=== PATIENT | female | born 1975 | race Caucasian/White ===

== ENCOUNTER → 2019-02-19 16:34 | Outpatient (CLI) | payer BC, SELFPAY ==
--- NOTE | 2019-02-19 16:39 | US_ITS ---
STUDY: ULTRASOUND OF THE FEMALE PELVIS - COMPLETE REASON FOR EXAM: Female, 44 years old. Fibroids. LMP: February 12, 2019. TECHNIQUE: Transvaginal TECHNICAL QUALITY: Adequate. COMPARISON: None. FINDINGS: The uterus is anteverted and is in a midline position. The uterus measures 7.8 x 5.3 x 4 cm. There is a Nabothian cyst of the cervix. The endometrium measures 7 mm in thickness, and is hyperechoic. There is no demonstrated endometrial mass. There are multiple fibroids. In the fundus there is a 1.9 x 1.9 x 1.6 cm hypoechoic nodule which is thought to have internal calcification secondary to shadowing. In the anterior uterine wall there is a subserosal 0.8 x 0.9 x 0.3 cm hypoechoic fibroid. Posteriorly there is a 1.2 x 1.3 x 0.8 cm fibroid which may be submucosal. There is also a 0.7 x 0.9 x 0.4 cm hypoechoic nodule in the lower anterior uterine segment. I.U.D. - The patient does not have an I.U.D. The right ovary is visualized. The right ovary measures 3.1 x 2.5 x 2.1 cm. There is a 1.9 x 1.8 x 1.3 cm cyst versus dominant follicle. There is no visualized right adnexal mass or complex lesion. There is normal arterial and normal venous vascularity. The left ovary is visualized. The left ovary measures 2.5 x 1.7 x 1.9 cm. There is no left ovarian cyst or ovarian mass. There is no visualized left adnexal mass or complex lesion. There is normal arterial and normal venous vascularity. There is no fluid in the cul-de-sac. The urinary bladder is not visualized. Polycystic ovary disease: No. US/Transvaginal Non- IMPRESSION: 1. Multiple uterine fibroids without endometrial abnormality. 2. Dominant follicle versus small cyst in the right ovary. The ovaries are otherwise unremarkable. Electronically Signed: Don Levine DO at 8:21 EDT Tel [phone], Service support ,
== END ==
PROVIDERS: Family Provider Nurse Practitioner Family; PCP Nurse Practitioner Family; Referring Provider Nurse Practitioner Family; Visit Provider Nurse Practitioner Family
DX: D21.9 Benign neoplasm of connective and other soft tissue, unspecified (principal); N92.0 Excessive and frequent menstruation with regular cycle
CPT/HCPCS: 76830; 93976

== ENCOUNTER → 2019-03-14 | Outpatient (CLI) | payer BC, SELFPAY ==
--- NOTE | 2019-03-14 | EMB_PTH ---
PATIENT: DARLENE CARRION [facility] U[id number] AGE/SX: 44/F ROOM: RE03/14/[address]: Dr. Mariah Petersen MD : 1975 BED: DIS: 03/14/2019 SPEC #: [id number] RECD: 03/14/19 15:56 STATUS: ISABEL REBranden #: [id number] ЕЛЕНА: 03/14/19 00:[address]: Mariah Petersen DEPT: SURGICAL PATHOLOGY RECD BY: Doyle Breen ENTERED: 03/15/19 14:22 SP TYPE: ENDOM BX/C MOY DR: KAITY Moody Tissues: Endometrium, NOS Procedures: Surgery Specimen Level IV HEADER OPERATION: Endometrial biopsy PRE-OP DIAGNOSIS: Abnormal uterine bleeding TISSUE SUBMITTED: Endometrial biopsy MICROSCOPIC DIAGNOSIS Endometrial biopsy: Mildly disordered proliferative endometrium. SJ:indu 03/16/19 MICROSCOPIC DESCRIPTION Slides are reviewed. GROSS DESCRIPTION Received is one container labeled with the patient's name and not further designated. The specimen consists of multiple irregular fragments of danielle-pink soft tissue that in aggregate measure 1.5 x 1.5 x 0.2 cm. The specimen is totally submitted in one cassette. / SJ:indu 03/15/19 TC:5 CPT: 37624
[2019-03-14 12:25] VITALS: BMI 22.3
[2019-03-19 14:47] LABS: HPV APTIMA, High Risk Negative (Negative)
== END | disposition home or self-care (01) ==
LOC: LABSPEC 16:22
PROVIDERS: Family Provider Nurse Practitioner Family; PCP Nurse Practitioner Family; Referring Provider Obstetrics & Gynecology; Visit Provider Obstetrics & Gynecology
DX: N89.8 Other specified noninflammatory disorders of vagina (principal); N93.9 Abnormal uterine and vaginal bleeding, unspecified; Z12.4 Encounter for screening for malignant neoplasm of cervix
CPT/HCPCS: 87070; 87205; 87624; 88175; 88305; G0145

== ENCOUNTER → 2019-04-18 | Outpatient (CLI) | payer BC, SELFPAY ==
[2019-03-14 12:25] VITALS: BMI 22.3
--- NOTE | 2019-04-18 11:05 | BI_ITS ---
MAMMOGRAPHY - BILATERAL SCREENING REASON FOR EXAM: Female, 44 years old. Routine annual screening examination. PERTINENT HISTORY: Non-contributory. TECHNIQUE: Digital bilateral breast jarrett (3D mammographic acquisition) in the CC and MLO projections. 2-D mediolateral oblique (MLO) and craniocaudad (CC) views of both breasts were obtained. CAD: Full Field Digital Mammography with Computer Added Detection was performed. COMPARISON: Comparison is made with prior outside study dated September 19, 2017 and January 29, 2015. FINDINGS: Breast Composition: The breasts are heterogeneously dense, which may obscure small masses. There are no dominant masses or suspicious calcifications. No other significant abnormalities are identified. There has been no significant change since the prior study. BI/SCREENING MAMM (CAD), BILAT IMPRESSION: Stable bilateral screening mammogram. Yearly follow-up mammogram recommended. (A) ASSESSMENT CATEGORY: BIRADS Category 1: Negative. A letter regarding these results will be sent to the patient by the facility within 30 days. Approximately 10% of breast cancers are not detected by mammography. A normal mammogram should not delay biopsy of a clinically suspicious abnormality. [id number] Electronically Signed: Randolph Villalobos, at 9:00 EDT , Service support ,
== END | disposition home or self-care (01) ==
LOC: OPBI 11:03
PROVIDERS: Family Provider Nurse Practitioner Family; PCP Nurse Practitioner Family; Referring Provider Obstetrics & Gynecology; Visit Provider Obstetrics & Gynecology
DX: Z12.31 Encounter for screening mammogram for malignant neoplasm of breast (principal)
CPT/HCPCS: 77063; 77067

== ENCOUNTER 2019-06-21 05:24 | Day surgery (SDC) | payer BC, SELFPAY ==
[2019-03-14 12:25] VITALS: BMI 22.3
[2019-06-07 17:07] VITALS: BMI 22.3
--- NOTE | 2019-06-08 04:13 | HP.PCM_ITS ---
- Problem List (1) Stress incontinence Status: Acute Comment: urogyn consult with miko for combo case (2) Uterine fibroid Status: Acute Qualifiers: Comment: plan LAVH BS, possible TVH BS. History and Physical Date of Admission: 06/21/19 Intake Vital Signs 06/07/19 Body Mass Index (BMI) 22.3 06/07/19 Height 5 ft 1 in 06/07/19 Weight: 110 lb 6 oz 06/07/19 Body Mass Index (BMI) 20.8 06/07/19 Blood Pressure 100/80 Intake Visit Reasons: pre op LAVH BS ERAS Milk Pasteurizer Required: No Is patient in pain?: No Allergies codeine Allergy (Mild, Verified 06/07/19 16:36) Other Sulfa (Sulfonamide Antibiotics) Allergy (Mild, Verified 06/07/19 16:36) Other Medications omeprazole 40 mg capsule,delayed release 40 mg PO DAILY 03/14/19 [History Confirmed 06/07/19] Post menopausal: No Patient : No : No PFSH Surgical History H/O tubal ligation (Acute) Family History Grandmother Cancer Grandfather Cancer prostate Anxiety Depression Social History (Updated 06/08/19 @ 03:16 by Mariah Petersen MD) Smokeless tobacco user: other alcohol intake: never substance use type: does not use caffeine: Yes what type of physical activity do you participate in: none seatbelt use: always do you feel safe at home: Yes additional social history: - [place] [employer] HPI pre op LAVH BS ERAS: Details: DARLENE AVITIA is a 44 year old who presents for preoperative visit for hysterectomy. she has uterine fibroids and irregular bleeding and pelvic discomfort from this. she has DI and has been evaluated by Dr Zendejas and pelvic floor physical therapy was recommended. Female Reproductive History Questions: Metorrhagia: Yes, Sexually active: Yes Pregancy History 3 Elective abortions Hx Para 3 Spontaneous abortions Hx # Term Pregnancies Ectopic pregnancies Hx # Pregnancies Multiple births # of living children Past Pregnancies Del. Date Name GA/Weeks Outcome Route Bth Weight Gen Labor Lgth Anesthesia Del Locatn Provider FOB Unknown 1989 [place] live - full term NSV D Unknown 1991 [place] live - full term NS VD Unknown 1996 [place] live - full term ROS Const Constitutional: Denies fatigue, fever(s), headache(s), increased appetite, poor appetite, weight gain or weight loss Cardio Card: Denies chest pain Resp Resp: Denies cough or dyspnea GI GI: Reports as per HPI; denies abdominal pain, constipation, nausea or vomiting : Denies nipple discharge Skin Skin/Breast: Denies change in hair, breast lump, breast pain, breast skin changes or nipple discharge Exam Const General: cooperative, healthy appearing, comfortable, no acute distress, well developed Nutritional Appearance: average body habitus Orientation: alert HENMT Head: normal to inspection, normocephalic Neck Neck: normal visual inspection, trachea midline Thyroid: thyroid normal Resp Effort & Inspection: normal respiratory effort Auscultation: clear to auscultation bilaterally Cardio Rate: regular rate Rhythm: regular rhythm GI Inspection: normal to inspection, non-distended Palpation: soft, no hepatosplenomegaly General: bladder normal to palpation External Female Exam: normal external appearance, normal appearance of the urethra Urethra: normal appearance of the urethra, normal palpation, no discharge Speculum Exam - Vagina: normal appearance of the vagina, normal vaginal discharge Speculum Exam - Cervix: normal appearance of the cervix, nontender Bimanual Exam- Vagina & Uterus: normal bimanual exam, bladder normal to palpation, uterine shape abnormal, No cervical tenderness, uterine mobility normal, uterine consistency normal, normal cervical palpation, uterus non- tender, uterus enlarged, uterus nodular Bimanual Exam- Adnexa, other: normal adnexae, adnexae mobile, no adnexal masses, pelvic support normal Pelvic Support: normal Skin General: no rashes or lesions noted Assessment & Plan Problems 1. Intramural, submucous, and subserous leiomyoma of uterus D25.1 plan LAVH BS, possible TVH BS. Plan discussed surgical risks including risks of anesthesia, infection, bleeding, injury to bowel, bladder or blood vessels, and patient wishes to proceed with surgery. Coding Level of Care Code No Charge Diagnoses Intramural, submucous, and subserous leiomyoma of uterus D25.1 ??Uterine leiomyoma location: intramural, submucous, and subserous UPDATE- I have seen the patient and performed any clinically relevant updates to the history and physical exam. Mariah Petersen MD
[2019-06-21] VITALS (10 sets, daily range): BP systolic 85–115; BP diastolic 35–75; PULSE 54–85; RESP 14–18; TEMP 36.2–37; O2SAT 98–100; BMI 21.2
--- NOTE | 2019-06-21 | HYST_PTH ---
PATIENT: DARLENE CARRION LOC: [facility] U#:[id number] AGE/SX: 44/F ROOM: RE06/21/[address]: Dr. Mariah Petersen MD : 1975 BED: DIS: 06/21/2019 SPEC #: [id number] RECD: 06/21/19 12:35 STATUS: ISABEL REBranden #: [id number] ЕЛЕАН: 06/21/19 00:[address]: Mariah Petersen DEPT: SURGICAL PATHOLOGY RECD BY: Doyle Breen ENTERED: 06/21/19 12:35 SP TYPE: HYSTERECT OTHR DR: Shereen Gonzalez, KAITY Tissues: Uterus, NOS Procedures: Surgery Specimen Level V HEADER OPERATION: ERAS, lap-assisted vaginal hysterectomy, salpingectomy PRE-OP DIAGNOSIS: Intramural, submucous and subserosal leiomyoma of uterus TISSUE SUBMITTED: Uterus and bilateral fallopian tubes MICROSCOPIC DIAGNOSIS Uterus and bilateral fallopian tubes, vaginal hysterectomy and bilateral salpingectomy: Cervix - mild chronic inflammation and squamous metaplasia. Endometrium - mildly disordered proliferative endometrium. Myometrium - intramural leiomyomas (largest measuring 2 cm in greatest dimension). - Focal adenomyosis. Right fallopian tube - no pathologic diagnosis. Left fallopian tube - focal hematosalpinx. SJ:rg 06/22/19 COMMENT Please make reference to previous specimen ([id number]) endometrial biopsy with diagnosis of mildly disordered proliferative endometrium. MICROSCOPIC DESCRIPTION Slides are reviewed. GROSS DESCRIPTION Received in fixative is one container labeled with the patient's name and designated uterus, bilateral fallopian tubes. The specimen consists of a hysterectomy specimen consisting of uterus with cervix and attached bilateral fallopian tubes. The uterus with cervix weighs 120 gm and measures 9 x 7 x 5 cm. The serosal surface is danielle, glistening. The ectocervical mucosa is focally congested. The external os is oval and patulous in contour. The endocervical canal measures 3.5 cm in length and the endocervical mucosa is danielle, glistening and unremarkable. The triangular endometrial cavity measures 4 cm in length and up to 3 cm in width. The endometrium is danielle, glistening without any mass lesion and measures up to 0.2 cm in thickness. Sections of the uterine wall reveal three nodular masses, the largest measuring 2 cm in greatest dimension. Sections of these masses reveal danielle whorled cut surfaces without areas of hemorrhage, necrosis or cystic degeneration. The uninvolved uterine wall measures up to 2 cm in thickness. The right fallopian tube measures up to 5.5 cm in length and 0.8 cm in diameter. The fimbrial end is identified. The fallopian tube is interrupted predominantly in the proximal portion of the fallopian tube consistent with previous tubal ligation. The left fallopian tube measures 6 cm in length and 0.6 to 1 cm in diameter. It is interrupted in the middle consistent with previous tubal ligation. The lumen of the proximal portion of the fallopian tube is dilated and filled with bloody fluid. Deaf Teacher sections are submitted in nine cassettes as follows: 1 - anterior cervix, 2 - posterior cervix, 3 & 4 - anterior uterine wall, 5 & 6 - posterior uterine wall, 7 - nodular masses, 8 - right fallopian tube, 9 - left fallopian tube. / JOCELYNN:indu 06/21/19 TC:1 CPT: 62625
[2019-06-21 06:00] LABS: Internal QC Validated? YES +Cl - CLEAR BKGD; Pregnancy, Urine Negative Negative
[2019-06-21] MEDS: Celecoxib 200 MG Capsule 400 MG PO (06:12)
[2019-06-21] MEDS: Phenazopyridine 95 MG Tablet 190 MG PO (06:13)
[2019-06-21] MEDS: dexAMETHasone 10 MG/ML Vial 8 MG IV (06:13)
[2019-06-21] MEDS: Acetaminophen 500 MG Tablet 1000 MG PO ×2 (06:13→13:35)
[2019-06-21] MEDS: Scopolamine 1mg/72hr Patch 1 PATCH TRANSDERM. (06:14)
[2019-06-21] MEDS: Enoxaparin 40 MG/0.4 ML Syringe SC (06:14)
[2019-06-21] MEDS: Lactated Ringers 1,000 ML 40 ML IV (06:15)
[2019-06-21] MEDS: Magnesium Sulfate 4gm/100mL 4 GM/100 ML IV.SOLN. IV (06:28)
[2019-06-21] MEDS: Gabapentin 600 MG Tablet PO (06:28)
[2019-06-21 06:44] LABS: International Normalized Ratio 1.1; Prothrombin Time (Protime)PT. 14.2 SECONDS (11.7-14.9)
[2019-06-21 06:45] LABS: Partial Thromboplast Time 31.2 Seconds (24.1-36.2)
[2019-06-21 06:47] LABS: Hematocrit 41.2 % (37-47); Hemoglobin 12.8 g/dL (12.0-15.0); Mean Corp Hgb Conc 31.1 g/dL (32-36); Mean Corpuscular Hgb 24.2 pg (27.0-32.0); Mean Platelet Vol. 10.4 fl (6.2-12.0); Platelet Count 228 K/mm3 (150-450); RBC Distribution Width CV 16.8 % (11.6-14.6); RBC Distribution Width SD 46.7 fl (35.1-43.9); Red Blood Count 5.28 M/mm3 (4.2-5.4); White Blood Count 4.6 K/mm3 (4.4-11.0)
[2019-06-21] MEDS: Vasopressin 20 UNITS/ML Vial (07:09)
[2019-06-21] MEDS: Cefazolin 2 GM in 0.9% Normal Saline 100 ML IV (07:43)
--- NOTE | 2019-06-21 07:49 | PCM.OPRPT ---
Problem List (1) Stress incontinence Status: Acute Comment: urogyn consult with miko- [facility] pelvic floor physical therapy (2) Uterine fibroid Status: Acute Qualifiers: Comment: plan LAVH BS, possible TVH BS. (3) Endometriosis Status: Acute Comment: seen at hysterectomy stage III, all scar tissue removed Report of Operation Date of Procedure: 06/21/19 Pre-Operative Diagnosis: enlarged fibroid uterus Post-Operative Diagnosis: same plus stage III endometriosis Surgery/Procedure Performed:: lavh bs cysto Description of Surgical Findings:: normal bladder lining, stage III endometriosis senior regulatory affairs specialist: Jessy Victoria Type of Anesthesia:: General Special Medications: christine Specimen's removed: uterus tubes Drains: ragland Estimated Blood Loss (mL): 50 Fluids Replaced: crystalloid Description of Procedure: Patient received preoperative antibiotics and SCDs were on preoperatively. Patient was taken back to the operating room and placed in the dorsal lithotomy position. General anesthesia was induced and patient was prepped and draped in normal sterile fashion. Uterine manipulator was placed inside the uterus and Ragland catheter placed in the bladder. The umbilicus was grasped with towel clamps and an intraumbilical incision was made after injecting with quarter percent Marcaine and a Veress needle entered into the abdomen confirmed to be intra-abdominal with a low opening pressure. Abdomen was insufflated with CO2 gas and the Veress needle removed and the 5 mm trocar was placed under direct visualization without complication. Right and left lower quadrants were transilluminated and injected with quarter percent Marcaine and 5 mm ports placed under direct visualization. Pelvis was well visualized see operative findings for additional information. Significant scar tissue was noted from the sigmoid colon to the left pelvic sidewall to the ovarian and fallopian tube area. Extensive bladder to anterior abdominal wall adhesions were noted as well as left ovarian to sigmoid colon and ovarian fossa adhesions. Overall she had a stage III endometriosis. No endometriomas were seen bilaterally. All scar tissue was taken down both bluntly and with the LigaSure device without complication. Bilateral fallopian tubes were identified and transected with the LigaSure device across the mesosalpinx to the level of the utero-ovarian ligament which was also transected with the LigaSure device. The broad ligament was opened up by transecting the round ligament bilaterally and skeletonizing the uterine vessels bilaterally and creating a bladder flap using the LigaSure device. The uterine arteries were transected bilaterally with good visualization of the bladder and the ureters were seen to be inferior lateral to the operative area. Attention was then paid to the vaginal portion of the procedure and the cervix was grasped with Yazmin clamps and circumferentially injected with dilute vasopressin. A circumferential incision was made and the vaginal mucosa was mobilized off posteriorly and the cul-de-sac entered into sharply and a longneck speculum placed. The anterior cul-de-sac was then identified and entered into sharply. The uterosacral ligaments were clamped cut and suture ligated with 0 Monocryl bilaterally followed by the cardinal ligaments which were clamped cut and suture ligated bilaterally with 0 Monocryl. The uterus serially descended and was removed without difficulty with minimal morcellation. Pelvic sidewall pedicles were checked and noted to have excellent hemostasis. The vaginal mucosa was reapproximated incorporating the posterior peritoneum. This was reapproximated using 0 Vicryl [id number] sutures. Excellent hemostasis was noted. The cystoscopy was then performed and bilateral ureteral strong spray was noted and the bladder was noted to have no abnormality or lesions seen. Ragland catheter was replaced and then attention paid to the abdominal portion of the procedure again. The pelvis and cul-de-sac was well visualized and no significant active bleeding noted but some raw areas were seen on the peritoneum and therefore Christine was applied. Pressure was taken down and the areas visualized and noted of excellent hemostasis. All ports were removed under direct visualization without complication and the abdomen was desufflated of air. The instruments removed from the abdomen and the vagina vaginal sweep was negative. Port sites on the abdomen were closed with 4-0 Monocryl interrupted sutures and Steri's and windows were applied. She was awoken and taken recovery in stable condition. Grafts/Implants Used: none - Complications none Multi Select Codes - Urinary/Genital Urinary/Genital CPT Codes: 27130 Laparo-vag hyst incl t/o
--- NOTE | 2019-06-21 07:53 | DCINST_ITS ---
Discharge Diet: No Restrictions Discharge Activity: Return to Normal Activity, May Not Drive, May Shower May resume sexual activity in: 6-8 weeks Call your doctor if your incision/area has: Continuous Slow Oozing, Sudden Increased Bleeding, Increased Pain/ Swelling, Increased Redness, Foul Smelling Discharge Call your doctor if you observe: Fever of 101 or Higher, Inability to urinate, Inability to have a bowel movement, Using more than one pad per hour Allergies/Adverse Reactions: Allergies codeine Allergy (Mild, Verified 06/14/19 10:18) Other Sulfa (Sulfonamide Antibiotics) Allergy (Mild, Verified 06/14/19 10:18) Other Medications to take at Discharge omeprazole 40 mg capsule,delayed release 40 mg PO DAILY PRN 03/14/19 Naproxen [Naprosyn] 250 - 500 mg PO Q8H PRN PRN #30 tab 06/21/19 Oxycodone HCl/Acetaminophen [Percocet 5-325] 1 - 2 tablet PO Q4H PRN PRN 7 Days #15 tablet 06/21/19 The following prescriptions were given: Naproxen [Naprosyn] 250 - 500 mg PO Q8H PRN PRN #30 tab PRN Reason: MILD PAIN Transmission Status: Pending to [facility] Oxycodone HCl/Acetaminophen [Percocet 5-325] 1 - 2 tablet PO Q4H PRN PRN 7 Days #15 tablet PRN Reason: Pain Transmission Status: Sent to [facility] Primary Care Physician: Shereen Gonzalez NP-C [Primary Care Provider] - Test Results: Test results from this visit will be discussed in further detail at your follow- up appointment, if applicable. Please Follow Up With: Mariah Petersen MD - [phone]
[2019-06-21] MEDS: Bupivacaine 0.25% 30 ML Vial (09:30)
[2019-06-21] MEDS: Ketorolac 30 MG/ML Syringe IV (11:22)
[2019-06-21 13:15] LABS: Hematocrit 38.3 % (37-47); Hemoglobin 12.1 g/dL (12.0-15.0); Mean Corp Hgb Conc 31.6 g/dL (32-36); Mean Corpuscular Hgb 24.6 pg (27.0-32.0); Mean Platelet Vol. 10.9 fl (6.2-12.0); Platelet Count 193 K/mm3 (150-450); RBC Distribution Width CV 16.4 % (11.6-14.6); RBC Distribution Width SD 46.2 fl (35.1-43.9); Red Blood Count 4.91 M/mm3 (4.2-5.4); White Blood Count 9.1 K/mm3 (4.4-11.0)
[2019-06-21] MEDS: oxyCODONE 5 MG Tablet PO (13:36)
[2019-06-21 15:50] LABS: Bedside Glucose 69 mg/dL (70-110)
[2019-06-21 15:50] LABS: Bedside Glucose 63 mg/dL (70-110)
== END 2019-06-21 14:49 | disposition home or self-care (01) ==
LOC: SDC 05:25 → AC 05:26
PROVIDERS: Anesthesiology; Family Provider Nurse Practitioner Family; PCP Nurse Practitioner Family; Referring Provider Obstetrics & Gynecology; Visit Provider Obstetrics & Gynecology
PROC: (CPT 58260; principal; 2019-06-21 07:10)
DX: D25.1 Intramural leiomyoma of uterus (principal); N80.0 Endometriosis of uterus; N87.0 Mild cervical dysplasia; N72 Inflammatory disease of cervix uteri; N80.9 Endometriosis, unspecified; D64.9 Anemia, unspecified; F17.200 Nicotine dependence, unspecified, uncomplicated; K21.9 Gastro-esophageal reflux disease without esophagitis; Z79.899 Other long term (current) drug therapy
CPT/HCPCS: 00840; 52000; 58552; 36415; 81025; 82962; 85027; 85610; 85730; 86850; 86900; 88307; J7120; J2405

== ENCOUNTER → 2020-04-25 10:19 | Outpatient (CLI) | payer BC, SELFPAY ==
[2019-08-06 15:43] VITALS: BMI 21.2
--- NOTE | 2020-04-25 10:20 | BI_ITS ---
MAMMOGRAPHY - BILATERAL SCREENING REASON FOR EXAM: Female, 45 years old. Routine annual screening examination. PERTINENT HISTORY: Non-contributory. TECHNIQUE: Digital bilateral breast christopher (3D mammographic acquisition) in the CC and MLO projections. 2-D mediolateral oblique (MLO) and craniocaudad (CC) views of both breasts were obtained. CAD: Full Field Digital Mammography with Computer Added Detection was performed. COMPARISON: Comparison is made with prior examination April 18, 2019. FINDINGS: Breast Composition: The breasts are heterogeneously dense, which may obscure small masses. There are no dominant masses or suspicious calcifications. No other significant abnormalities are identified. There has been no significant change since the prior study. BI/SCREEN MAMM (CAD) W/CHRISTOPHER BILAT IMPRESSION: Stable bilateral screening mammogram. Yearly follow-up mammogram recommended. (A) ASSESSMENT CATEGORY: BIRADS Category 1: Negative. A letter regarding these results will be sent to the patient by the facility within 30 days. Approximately 10% of breast cancers are not detected by mammography. A normal mammogram should not delay biopsy of a clinically suspicious abnormality. [id number] Electronically Signed: Randolph Villalobos, at 12:20 EDT , Service support ,
== END ==
PROVIDERS: PCP Nurse Practitioner Family; Referring Provider Obstetrics & Gynecology; Visit Provider Obstetrics & Gynecology
DX: Z12.31 Encounter for screening mammogram for malignant neoplasm of breast (principal)
CPT/HCPCS: 77063; 77067

== ENCOUNTER → 2020-08-02 08:26 | Outpatient (CLI) | payer BC, SELFPAY ==
[2020-08-01 09:57] VITALS: BMI 21.2
[2020-08-02 09:15] LABS: Absolute Lymphocyte Count 1.26 X10^3/uL (0.83-4.51); Absolute Neutrophil Count 3.7 X10^3/uL (2.0-7.7); Basophil# 0.04 X10^3/uL; Basophil% 0.7 % (0-1); Eosinophil# 0.17 X10^3/uL; Eosinophils% 3.1 % (0-5); Hematocrit 47.3 % (37-47); Hemoglobin 15.4 g/dL (12.0-15.0); Lymphocyte # 1.26 X10^3/ul (4.0); Lymphocyte % 22.6 % (19-41); Mean Corp Hgb Conc 32.6 g/dL (32-36); Mean Corpuscular Hgb 29.8 pg (27.0-32.0); Mean Corpuscular Volume 91.5 fL (81-99); Mean Platelet Vol. 10.2 fl (6.2-12.0); Monocyte# 0.43 X10^3/uL; Monocyte% 7.7 % (0-10); NRBC Flagged by Analyzer 0 % (0-5); Neutrophil # 3.66 X10^3/uL (2.7-7.7); Neutrophil % 65.7 % (47-70); Platelet Count 193 K/mm3 (150-450); RBC Distribution Width CV 12.7 % (11.6-14.6); RBC Distribution Width SD 42.8 fl (35.1-43.9); Red Blood Count 5.17 M/mm3 (4.2-5.4); White Blood Count 5.6 K/mm3 (4.4-11.0)
[2020-08-02 09:46] LABS: Vitamin D,25 Hydroxy 41.3 ng/mL
[2020-08-02 09:55] LABS: ALB/GLOB Ratio 1.1 RATIO (0.9-2.4); AST(SGOT) 9 U/L (15-37); Alanine Aminotransfer ALT/SGPT 18 U/L (13-56); Albumin, Serum 4.2 g/dL (3.2-5.0); Alkaline Phosphatase 66 U/L (45-117); Anion Gap 3 (5-15); BUN 23 mg/dL (7-18); BUN/Creat Ratio 26.3 RATIO (10-20); Calcium,Total 9.3 mg/dL (8.5-10.1); Chloride 109 mmol/L (98-107); Cholesterol 217 mg/dL (200); Creatinine, Serum 0.87 mg/dL (0.55-1.02); EST Glomerular Filtration Rate 74 mL/min (>60); Est Glom Filt Rate - Afr Amer 90 mL/min (>60); Globulin 3.7 g/dL (2.2-4.2); Glucose 87 mg/dL (74-106); High Density Lipoprotein 56 mg/dL; Protein, Total 7.9 g/dL (6.4-8.2); Sodium Level 140 mmol/L (136-145); Thyroid Stim Hormone (TSH) 1.83 uIU/mL (0.358-3.74); Triglycerides 87 mg/dL; Very Low Density Lipoprotein 17 mg/dL (5-40)
[2020-08-06 20:07] LABS: HSV 1 By PCR Negative (Negative)
[2020-08-06 20:37] LABS: HSV 1 IgG < 0.91 index (0.00-0.90); HSV 2 By PCR Negative (Negative)
== END ==
PROVIDERS: PCP Nurse Practitioner Family; Referring Provider Obstetrics & Gynecology; Visit Provider Obstetrics & Gynecology
DX: Z01.419 Encounter for gynecological examination (general) (routine) without abnormal findings (principal); Z13.29 Encounter for screening for other suspected endocrine disorder; Z13.21 Encounter for screening for nutritional disorder; Z13.220 Encounter for screening for lipoid disorders; Z11.3 Encounter for screening for infections with a predominantly sexual mode of transmission
CPT/HCPCS: 36415; 80053; 80061; 82306; 84443; 85025; 86695; 86696; 87529

== ENCOUNTER → 2021-05-25 10:34 | Outpatient (CLI) | payer BC, SELFPAY ==
[2020-08-01 09:57] VITALS: BMI 21.2
--- NOTE | 2021-05-25 10:37 | BI_ITS ---
MAMMOGRAPHY - BILATERAL SCREENING REASON FOR EXAM: Female, 46 years old. Routine annual screening examination. PERTINENT HISTORY: Non-contributory. TECHNIQUE: Digital bilateral breast christopher (3D mammographic acquisition) in the CC and MLO projections. 2-D mediolateral oblique (MLO) and craniocaudad (CC) views of both breasts were obtained. CAD: Full Field Digital Mammography with Computer Added Detection was performed. COMPARISON: Comparison is made with prior study dated 04/25/2020 and 04/18/2019. FINDINGS: Breast Composition: The breasts are heterogeneously dense, which may obscure small masses. There are no dominant masses or suspicious calcifications. No other significant abnormalities are identified. There has been no significant change since the prior study. BI/SCRN MAMM (CAD)W/CHRISTOPHER BILAT IMPRESSION: Stable bilateral screening mammogram. Yearly follow-up mammogram recommended. (A) ASSESSMENT CATEGORY: BIRADS Category 1: Negative. A letter regarding these results will be sent to the patient by the facility within 30 days. Approximately 10% of breast cancers are not detected by mammography. A normal mammogram should not delay biopsy of a clinically suspicious abnormality. [id number] Electronically Signed: Randolph Villalobos MD at 12:32 EDT , Service support ,
== END ==
PROVIDERS: PCP Nurse Practitioner Family; Referring Provider Nurse Practitioner Women's Health; Visit Provider Nurse Practitioner Women's Health
DX: Z12.31 Encounter for screening mammogram for malignant neoplasm of breast (principal)
CPT/HCPCS: 77063; 77067

== ENCOUNTER → 2022-05-28 | Outpatient (CLI) | payer BC, SELFPAY ==
--- NOTE | 2022-05-28 10:25 | BI_ITS ---
MAMMOGRAPHY - BILATERAL SCREENING REASON FOR EXAM: Female, 47 years old. Routine annual screening examination. PERTINENT HISTORY: Non-contributory. TECHNIQUE: Digital bilateral breast christopher (3D mammographic acquisition) in the CC and MLO projections. 2-D mediolateral oblique (MLO) and craniocaudad (CC) views of both breasts were obtained. CAD: Full Field Digital Mammography with Computer Added Detection was performed. COMPARISON: Comparison is made with prior examination dated 05/25/2021 and 04/25/2020. FINDINGS: Breast Composition: The breasts are heterogeneously dense, which may obscure small masses. There are no dominant masses or suspicious calcifications. No other significant abnormalities are identified. There has been no significant change since the prior study. BI/SCRN MAMM (CAD)W/CHRISTOPHER BILAT IMPRESSION: Stable bilateral screening mammogram. Yearly follow-up mammogram recommended. (A) ASSESSMENT CATEGORY: BIRADS Category 1: Negative. A letter regarding these results will be sent to the patient by the facility within 30 days. Approximately 10% of breast cancers are not detected by mammography. A normal mammogram should not delay biopsy of a clinically suspicious abnormality. [id number] Electronically Signed: Randolph Villalobos MD at 11:15 EDT ,
== END | disposition home or self-care (01) ==
LOC: OPBI 10:24
PROVIDERS: PCP Internal Medicine; Referring Provider Obstetrics & Gynecology; Visit Provider Obstetrics & Gynecology
DX: Z12.31 Encounter for screening mammogram for malignant neoplasm of breast (principal)
CPT/HCPCS: 77063; 77067

== ENCOUNTER 2022-06-10 07:34 | Day surgery (SDC) | payer BC, SELFPAY ==
[2022-06-10] VITALS (7 sets, daily range): BP systolic 90–102; BP diastolic 59–76; PULSE 57–76; RESP 16–18; TEMP 36.2–37.1; O2SAT 95–100; BMI 22.4
[2022-06-10] MEDS: Lactated Ringers 1,000 ML 15 ML IV (08:10)
--- NOTE | 2022-06-10 09:00 | COLBX_PTH ---
PATIENT: DARLENE CARRION LOC: [facility] U#:[id number] AGE/SX: 47/F ROOM: RE06/10/[address]: Dr. Roge Sarkar MD : 1975 BED: DIS: 06/10/2022 SPEC #: [id number] RECD: 06/10/22 10:26 STATUS: ISABEL JUANITA #: [id number] ЕЛЕНА: 06/10/22 09:[address]: Roge Sarkar DEPT: SURGICAL PATHOLOGY RECD BY: Zora Mack ENTERED: 06/10/22 11:08 SP TYPE: COLON BX OT DR: Dr. Sonja Landaverde MD Tissues: A - Rectum, NOS B - Rectum, NOS Procedures: Surgery Specimen Level IV HEADER OPERATION: Colonoscopy ? open access (MAC), polypectomy PRE-OP DIAGNOSIS: Screening TISSUE SUBMITTED: A ? Rectal polyp biopsy, B ? Rectal polyp at 15 cm MICROSCOPIC DIAGNOSIS A. Rectal polyp, biopsy: Hyperplastic polyp. B. Rectal polyp at 15 cm, biopsy: Consistent with serrated adenoma. See comment. AM:indu 06/11/2022 COMMENT The specimen contain mixed features of hyperplastic and adenomatous change. MICROSCOPIC DESCRIPTION Slides are reviewed. GROSS DESCRIPTION A - Received in fixative is one container labeled with the patient's name and designated rectal polyp biopsy. The specimen consists of one irregular fragment of light danielle soft tissue that measures 0.3 x 0.2 x 0.1 cm. The specimen is totally submitted in one cassette. B - Received in fixative is one container labeled with the patient's name and designated rectal polyp at 15 cm. The specimen consists of a danielle-pink polyp measuring 0.6 x 0.6 x 0.4 cm. Apparent base is inked. The specimen is bisected and submitted entirely in one cassette. / JOCELYNN:indu 06/10/2022 TC:5 CPT: 99307 x2
--- NOTE | 2022-06-10 09:25 | HP.PCM_ITS ---
History and Physical Date of Admission: 06/10/22
--- NOTE | 2022-06-10 09:25 | PCM.HP.BLA ---
History and Physical Date of Admission: 06/10/22
--- NOTE | 2022-06-10 09:26 | H&P.OPEN ---
[facility] - General General Date of Admission: 06/10/22 Date of Service: 06/10/22 HPI Narrative DARLENE CARRION, is a 47 F who presents for screening colonoscopy. She confirms her medical record that she has had no prior colonoscopies. She denies any changes to her bowel habits. She does not normally experience constipation. She has not noticed any blood or dark stools. Her only blood thinner is a baby aspirin. She denies any personal history of diverticulitis, inflammatory bowel disease. She denies any family history of these things as well as colon cancer, but states there are a number of relatives with cancer and she is simply unaware of what their primary tumors are. FOR[facility]LY [facility], LATER [facility] Medical History (Updated 06/08/22 @ 12:15 by Deidre Hancock) Colon cancer screening Encounter to establish care Herpes Hyperlipidemia Preventative health care Smoker Wears glasses Wears partial dentures Home Medications aspirin 81 mg chewable tablet (Aspirin Childrens) 81 mg PO DAILY 03/15/22 [History Last Taken Unknown] atorvastatin 20 mg tablet 20 mg PO QHS 03/15/22 [History Last Taken Unknown] valacyclovir 500 mg tablet (Valtrex) 500 mg PO BID 06/08/22 [History Last Taken Unknown] Allergy/AdvReac Type Severity Reaction Status Date / Time codeine Allergy Mild Other Verified 06/10/22 08:24 Sulfa (Sulfonamide Allergy Mild Other Verified 06/10/22 08:24 Antibiotics) Family History Grandmother Cancer Lung cancer Grandfather Cancer prostate Anxiety Depression Lung cancer Mother Hyperlipidemia Other Heart disease Surgical History H/O tubal ligation History of [facility] Social History Smoking Status: Current some day smoker tobacco type: e-cigarettes Electronic Cigarette Use: with nicotine alcohol intake: never substance use type: does not use caffeine: Yes what type of physical activity do you participate in: none seatbelt use: always do you feel safe at home: Yes additional social history: - Reginaldo Sifuentes Jonathan COUCH Past Medical/Surgical History Planned Operation Planned Operative Procedure/s: Colonoscopy S.O.S: No Previous Hospitalizations/Surgeries HX Hospitalizations: No HX of Surgeries: TUBAL 1997 LEEP Any Problems With Anesthesia: No You/Your Family Experience Fever (Hyperthermia) With Anes: No Cholinesterase deficiency: No Cardiovascular Hx Chest Pain within Last 2 months: No Hx of Irregular Heartbeat and/or Afib: No Hx Heart Attack: No Hx Congestive Heart Failure: No Hx Rheumatic Fever: No Hx Hypertension: No Hx Internal Defibrillator: No Hx Pacemaker: No Hx Cardiac Catheterization: No Hx Cardiac Surgery/Stents/Etc.: No Hx Stress Test: No Hx Pain in Legs when Walking/Leg Cramps: No Respiratory Chronic Cough: No HX of Shortness of Breath: No (DENIES) Hoarseness: No Hx Chronic Obstructive Pulmonary Disease (COPD): No Hx Asthma: No Hx Emphysema: No Hx Sleep Apnea: No Hx Respiratory Tract Infection/Cold (presently): No Do You Snore Loudly (louder than talking or can be heard): No Do You Often Feel Tired/ Fatigued/ Sleepy Dring Daytime?: No Has Anyone Observed You Stop Breathing During Sleep?: No Result (for STOP score): Negative Hx Smoking: Yes (SMOKED 17 YRS/ VAPE 1 YR) Smoking Status: Current some day smoker Gastrointestinal Hx Gastroesophageal Reflux: Yes Controlled With Meds: Yes (OMEPRAZOLE) Hx Gastrointestinal Disorders: No Hx Gastrointestinal Bleed: No Hx Ulcer: No Hx Hiatal Hernia: No Difficulty Chewing/Swallowing: No Special diet followed at home: No Hx Unplanned Weight Loss of 20#: No HX Unplanned Weight Gain of 20#: No Neurological Hx Seizures: No HX Syncope/Blackout Spells/Unconsciousness: No Hx Transient Ischemic Attacks (TIA): No Hx Multiple Sclerosis: No Hx Parkinson's Disease: No Hx Head/Neck Injury: No Hx Headaches: No Hx Back Injury/Pain: No Recent Onset of Speech Difficulty: No Restless Legs: No Does patient have nerve stimulator: No Blood Disorder Hx Leukemia: No Bleeding Tendencies: No Hx Deep Vein Thrombosis: No Hx High Cholesterol: No Blood Transmitted Disease: No Hx Hepatitis: No Hx Cirrhosis: No Hx Anemia: Yes Hx Blood Disorders: No Reproduction : No Is Patient Lactating: No Hx Hysterectomy: No Hx Tubal Ligation: Yes Genitourinary Hx Renal Disease: No (DENIES PROBLEMS VOIDING POST OP) Musculoskeletal Hx Arthritis: No Hx Rheumatoid Arthritis: No Hx Gout: No Recent Onset of an Orthopedic Problem: No Endocrine Hx Diabetes: No Thyroid Disease: No Hx Steroid Therapy: No Psycho/Social Hx Substance Use: No Hx Alcohol Use: No Hx Anxiety: No Hx Depression: No Mental Illness: No Hx Dementia: No Miscellaneous Hx Cancer: No Recent Exposure to Contagious Disease: No Hx of C-Diff: No Any Loose Teeth: No Allergies codeine Allergy (Mild, Verified 06/10/22 08:24) Other Sulfa (Sulfonamide Antibiotics) Allergy (Mild, Verified 06/10/22 08:24) Other Discharge Is Pt Admitted From a Half-Way, or a Jail: No After D/C, Where Do you Plan to Go: Return Home Vital Signs Vital Signs Vital Signs: 06/10/22 08:25 06/10/22 08:25 Temperature 98.7 F Temperature Source Temporal Pulse Rate 76 Respiratory Rate 16 Respiratory Pattern Normal Blood Pressure 102/76 Blood Pressure Mean 84 Blood Pressure Source Monitor Blood Pressure Position Semi-Fowlers Blood Pressure Location Left Arm Pulse Ox 98 Oxygen Delivery Method Room Air Weight Weight: 119 lb 0.794 oz Body Mass Index (BMI) 22.4 Physical Exam Const alert and oriented x3 General Appearance: cooperative and comfortable Resp normal respiratory effort GI soft to palpation and non-tender Assessment & Plan Assessment/Plan (1) Colon cancer screening: PLAN: Patient seen and examined. Her history provided for her screening questionnaire was confirmed. Plan to proceed with screening colonoscopy under local [facility] as scheduled. Surgery Risks - Colonoscopy Risks Include but are not Limited To: Risks include but are not limited to: Bleeding, perforation requiring further surgery, inability to complete colonoscopy requiring barium enema.
--- NOTE | 2022-06-10 10:25 | OP.COLON_ITS ---
Patient Name: Ember Rodriguez Procedure Date: 06/10/2022 9:18 AM Date of : 1975 Age: 47 Procedure: Colonoscopy Indications: Screening for colorectal malignant neoplasm Providers: Roge Sarkar MD Medicines: See the Anesthesia note for documentation of the administered medications Patient Profile: Refer to note in patient chart for documentation of history and physical. Last Colonoscopy: none. The patient's first colonoscopy is today. Complications: No immediate complications. Estimated blood loss: Minimal. Procedure: Pre-Anesthesia Assessment: - The heart rate, respiratory rate, oxygen saturations, blood pressure, adequacy of pulmonary ventilation, and response to care were monitored throughout the procedure. After I obtained informed consent, the scope was passed under direct vision. Throughout the procedure, the patient's blood pressure, pulse, and oxygen saturations were monitored continuously. The colonoscope was introduced through the anus and advanced to the cecum, identified by appendiceal orifice and ileocecal valve. The colonoscopy was performed without difficulty. The patient tolerated the procedure well. The quality of the bowel preparation was adequate to identify polyps. Scope In: 9:31:24 AM Scope Withdrawal Time 0 hours 31 minutes 16 seconds Scope Out: 10:12:12 AM Total Procedure Duration Time 0 hours 40 minutes 48 seconds Findings: The perianal and digital rectal examinations were normal. Two semi-sessile, non-bleeding polyps were found in the rectum. The polyps were 5 to 17 mm in size. Biopsies were taken with a cold forceps for histology. Estimated blood loss was minimal. These polyps were removed with a hot snare. Resection and retrieval were complete. Estimated blood loss: none. The exam was otherwise without abnormality on direct and retroflexion views. Impression: - Two 5 to 17 mm, non-bleeding polyps in the rectum, removed with a hot snare. Resected and retrieved. Biopsied. - The examination was otherwise normal on direct and retroflexion views. Recommendation: - Discharge patient to home (via wheelchair). - Resume regular diet today. - Continue present medications. - Await pathology results. - Repeat colonoscopy for surveillance based on pathology results. - Telephone my office for pathology results in 1 week. Procedure Code(s): --- Professional --- 57921, Colonoscopy, flexible; with removal of tumor(s), polyp(s), or other lesion(s) by snare technique Diagnosis Code(s): --- Professional --- Z12.11, Encounter for screening for malignant neoplasm of colon K62.1, Rectal polyp CPT copyright 2017 [employer]. All rights reserved. The codes documented in this report are preliminary and upon english faculty member review may be revised to meet current compliance requirements. Roge Sarkar MD 06/10/2022 10:24:31 AM This report has been signed electronically. Number of Addenda: 0 Note Initiated On: 06/10/2022 9:18 AM
--- NOTE | 2022-06-10 10:25 | OP.CCLET_ITS ---
06/10/2022 Sonja Landaverde MD [address] [place] [address] [place] [address] Re : Colonoscopy procedure for Ember Rodriguez Dear Dr. Lnadaverde This procedure was performed on May. My impressions and recommendations are as follows: Impressions : - Two 5 to 17 mm, non-bleeding polyps in the rectum, removed with a hot snare. Resected and retrieved. Biopsied. - The examination was otherwise normal on direct and retroflexion views. Recommendations : - Discharge patient to home (via wheelchair). - Resume regular diet today. - Continue present medications. - Await pathology results. - Repeat colonoscopy for surveillance based on pathology results. - Telephone my office for pathology results in 1 week. My findings are described in the full procedure note, which is enclosed. If I can be of further assistance, please feel free to contact me at Doctor phone number(s): , Work: . Sincerely, Roge Sarkar MD 06/10/2022 10:24:31 AM This report has been signed electronically.
== END 2022-06-10 11:05 | disposition home or self-care (01) ==
LOC: EN 07:36 → AC 07:38
PROVIDERS: PCP Internal Medicine; Referring Provider Internal Medicine; Visit Provider Surgery
PROC: 0DJD8ZZ Inspection of Lower Intestinal Tract, Via Natural or Artificial Opening Endoscopic (ICD-10-PCS; CPT 45378; principal; 2022-06-10 08:55)
DX: Z12.11 Encounter for screening for malignant neoplasm of colon (principal); K62.1 Rectal polyp; K21.9 Gastro-esophageal reflux disease without esophagitis; E78.5 Hyperlipidemia, unspecified; Z90.49 Acquired absence of other specified parts of digestive tract; F17.290 Nicotine dependence, other tobacco product, uncomplicated; Z79.82 Long term (current) use of aspirin; Z79.899 Other long term (current) drug therapy
CPT/HCPCS: 45385; 88305; J7120; J2405

== ENCOUNTER → 2022-12-13 | Outpatient (CLI) | payer BC, SELFPAY ==
[2022-12-13 09:40] LABS: Absolute Lymphocyte Count 1.32 X10^3/uL (0.83-4.51); Absolute Neutrophil Count 1.8 X10^3/uL (2.0-7.7); Basophil# 0.04 X10^3/uL; Basophil% 1.1 % (0-1); Eosinophil# 0.12 X10^3/uL; Eosinophils% 3.3 % (0-5); Hematocrit 42.9 % (37-47); Hemoglobin 14.2 g/dL (12.0-15.0); Lymphocyte # 1.32 X10^3/ul (0.83-4.51); Lymphocyte % 36.5 % (19-41); Mean Corp Hgb Conc 33.1 g/dL (32-36); Mean Corpuscular Hgb 29.8 pg (27.0-32.0); Mean Corpuscular Volume 90.1 fL (81-99); Mean Platelet Vol. 10.5 fl (6.2-12.0); Monocyte# 0.35 X10^3/uL; Monocyte% 9.7 % (0-10); NRBC Flagged by Analyzer 0 % (0-5); Neutrophil # 1.78 X10^3/uL (2.7-7.7); Neutrophil % 49.1 % (47-70); Platelet Count 187 K/mm3 (150-450); RBC Distribution Width CV 12.7 % (11.6-14.6); RBC Distribution Width SD 42.1 fl (35.1-43.9); Red Blood Count 4.76 M/mm3 (4.2-5.4); White Blood Count 3.6 K/mm3 (4.4-11.0)
[2022-12-13 10:18] LABS: Vitamin D,25 Hydroxy 25.2 ng/mL
[2022-12-13 10:20] LABS: ALB/GLOB Ratio 1.1 RATIO (0.9-2.4); AST(SGOT) 11 U/L (15-37); Alanine Aminotransfer ALT/SGPT 23 U/L (13-56); Alkaline Phosphatase 72 U/L (45-117); Anion Gap 8 (5-15); BUN 15 mg/dL (7-18); BUN/Creat Ratio 16.8 RATIO (10-20); Calcium,Total 9.8 mg/dL (8.5-10.1); Chloride 107 mmol/L (98-107); Creatinine, Serum 0.89 mg/dL (0.55-1.02); EST Glomerular Filtration Rate 72 mL/min (>60); Est Glom Filt Rate - Afr Amer 87 mL/min (>60); Globulin 3.5 g/dL (2.2-4.2); Glucose 96 mg/dL (74-106); Potassium 3.7 mmol/L (3.5-5.1); Protein, Total 7.5 g/dL (6.4-8.2); Sodium Level 142 mmol/L (136-145)
[2022-12-13 10:41] LABS: Hemoglobin A1c 4.7 % (3.8-5.6)
[2022-12-13 14:19] LABS: Cholesterol 134 mg/dL (200)
== END | disposition home or self-care (01) ==
LOC: PAVLAB 09:13
PROVIDERS: PCP Internal Medicine; Referring Provider Registered Nurse; Visit Provider Registered Nurse
DX: Z00.00 Encounter for general adult medical examination without abnormal findings (principal)
CPT/HCPCS: 36415; 80053; 82306; 82465; 83036; 85025

== ENCOUNTER → 2023-06-23 | Outpatient (CLI) | payer BC, SELFPAY ==
--- NOTE | 2023-06-23 08:43 | BI_ITS ---
MAMMOGRAPHY - BILATERAL SCREENING REASON FOR EXAM: Female, 48 years old. Routine annual screening examination. PERTINENT HISTORY: Non-contributory. TECHNIQUE: Digital bilateral breast christopher (3D mammographic acquisition) in the CC and MLO projections. 2-D mediolateral oblique (MLO) and craniocaudad (CC) views of both breasts were obtained. CAD: Full Field Digital Mammography with Computer Added Detection was performed. COMPARISON: Comparison is made with prior study dated May 28, 2022 and May 25, 2021. FINDINGS: Breast Composition: The breasts are heterogeneously dense, which may obscure small masses. There are no dominant masses or suspicious calcifications. There is a 3.2 mm x 5.8 mm well-defined nodule in the anterior inferior central aspect of the right breast in the region of the 6:00 position. Correlation with ultrasound is recommended. No other significant abnormalities are identified. BI/SCRN MAMM (CAD)W/CHRISTOPHER BILAT IMPRESSION: 3.2 mm x 5.8 mm well-defined nodule in the anterior inferior central aspect of the right breast as discussed. Correlation with ultrasound is recommended. ASSESSMENT CATEGORY: BIRADS Category 0: Incomplete. Need additional imaging evaluation. A letter regarding these results will be sent to the patient by the facility within 30 days. Approximately 10% of breast cancers are not detected by mammography. A normal mammogram should not delay biopsy of a clinically suspicious abnormality. [id number] Electronically Signed: Randolph Villalobos MD at 10:17 EDT ,
== END | disposition home or self-care (01) ==
LOC: OPBI 08:42
PROVIDERS: PCP Internal Medicine; Referring Provider Registered Nurse; Visit Provider Registered Nurse
DX: Z12.31 Encounter for screening mammogram for malignant neoplasm of breast (principal); N63.10 Unspecified lump in the right breast, unspecified quadrant
CPT/HCPCS: 77063; 77067

== ENCOUNTER → 2023-07-01 | Outpatient (CLI) | payer BC, SELFPAY ==
--- NOTE | 2023-07-01 12:01 | US_ITS ---
STUDY: ULTRASOUND BREAST - RIGHT REASON FOR EXAM: Female, 48 years old. Abnormal screening mammogram. TECHNIQUE: Axial and longitudinal images of the RIGHT breast were performed with a high resolution ultrasound transducer. # OF IMAGES: 20 COMPARISON: Comparison is made with prior mammogram dated June 23, 2023. FINDINGS: RIGHT Breast: There is a 6 mm x 5 mm x 2 mm cyst at the 6:00 position of the breast at 2 cm from the nipple. There is also evidence of a 6 mm x 7 mm x 4 mm cyst at the 6:00 position breast at 1 cm from the nipple. US/Breast Limited Unilateral IMPRESSION: The mammographic abnormality corresponds to 2 small cysts. Routine mammographic follow-up is recommended. ASSESSMENT CATEGORY: BIRADS Category 2: Benign. A letter regarding these results will be sent to the patient by the facility within 30 days. Electronically Signed: Randolph Villalobos MD at 12:58 EDT ,
== END | disposition home or self-care (01) ==
LOC: OPUS 11:59
PROVIDERS: PCP Internal Medicine; Referring Provider Registered Nurse; Visit Provider Registered Nurse
DX: R92.8 Other abnormal and inconclusive findings on diagnostic imaging of breast (principal)
CPT/HCPCS: 76642

== ENCOUNTER → 2024-04-21 | Outpatient (CLI) | payer BC, SELFPAY ==
[2024-04-21 08:02] LABS: Absolute Lymphocyte Count 1.17 X10^3/uL (0.83-4.51); Basophil# 0.04 X10^3/uL; Eosinophil# 0.18 X10^3/uL; Eosinophils% 4.7 % (0-5); Hematocrit 46.1 % (37-47); Hemoglobin 15.1 g/dL (12.0-15.0); Lymphocyte # 1.17 X10^3/ul (0.83-4.51); Lymphocyte % 30.4 % (19-41); Mean Corp Hgb Conc 32.8 g/dL (32-36); Mean Corpuscular Hgb 28.8 pg (27.0-32.0); Mean Corpuscular Volume 87.8 fL (81-99); Mean Platelet Vol. 11.3 fl (6.2-12.0); Monocyte# 0.43 X10^3/uL; Monocyte% 11.2 % (0-10); NRBC Flagged by Analyzer 0 % (0-5); Neutrophil # 2.03 X10^3/uL (2.7-7.7); Neutrophil % 52.7 % (47-70); Platelet Count 194 K/mm3 (150-450); RBC Distribution Width CV 13.2 % (11.6-14.6); RBC Distribution Width SD 42.3 fl (35.1-43.9); Red Blood Count 5.25 M/mm3 (4.2-5.4); White Blood Count 3.9 K/mm3 (4.4-11.0)
[2024-04-21 08:21] LABS: ALB/GLOB Ratio 1.2 RATIO (0.9-2.4); AST(SGOT) 14 U/L (15-37); Alanine Aminotransfer ALT/SGPT 18 U/L (13-56); Albumin, Serum 3.9 g/dL (3.2-5.0); Alkaline Phosphatase 73 U/L (45-117); Anion Gap 4 (5-15); BUN 18 mg/dL (7-18); BUN/Creat Ratio 20.9 RATIO (10-20); Calcium,Total 9.5 mg/dL (8.5-10.1); Chloride 113 mmol/L (98-107); Cholesterol 181 mg/dL (200); Creatinine, Serum 0.86 mg/dL (0.55-1.02); EST Glomerular Filtration Rate 74 mL/min (>60); Est Glom Filt Rate - Afr Amer 90 mL/min (>60); Globulin 3.2 g/dL (2.2-4.2); Glucose 101 mg/dL (74-106); High Density Lipoprotein 47 mg/dL; Potassium 4.2 mmol/L (3.5-5.1); Protein, Total 7.1 g/dL (6.4-8.2); Sodium Level 141 mmol/L (136-145); Thyroid Stim Hormone (TSH) 1.64 uIU/mL (0.358-3.74); Triglycerides 77 mg/dL; Very Low Density Lipoprotein 15 mg/dL (5-40)
[2024-04-24 12:12] LABS: Vitamin D,25 Hydroxy 51.8 ng/mL
== END | disposition home or self-care (01) ==
LOC: LAB 07:09
PROVIDERS: PCP Internal Medicine; Referring Provider Family Medicine; Visit Provider Family Medicine
DX: Z00.00 Encounter for general adult medical examination without abnormal findings (principal); Z13.1 Encounter for screening for diabetes mellitus; E78.00 Pure hypercholesterolemia, unspecified
CPT/HCPCS: 36415; 80053; 80061; 82306; 84443; 85025

== ENCOUNTER → 2024-06-25 | Outpatient (CLI) | payer BC, SELFPAY ==
--- NOTE | 2024-06-25 14:20 | BI_ITS ---
MAMMOGRAPHY - BILATERAL SCREENING REASON FOR EXAM: Female, 49 years old. Routine annual screening examination. PERTINENT HISTORY: Non-contributory. TECHNIQUE: Digital bilateral breast christopher (3D mammographic acquisition) in the CC and MLO projections. 2-D mediolateral oblique (MLO) and craniocaudad (CC) views of both breasts were obtained. CAD: Full Field Digital Mammography with Computer Added Detection was performed. COMPARISON: Comparison is made with prior study dated June 23, 2023 and May 28, 2022. FINDINGS: Breast Composition: The breasts are heterogeneously dense, which may obscure small masses. There are no dominant masses or suspicious calcifications. Stable 3.2 mm x 5.8 mm well-defined nodule in the anterior inferior central aspect of the right breast. Prior ultrasound demonstrated this to be a cyst. No other significant abnormalities are identified. There has been no significant change since the prior study. BI/SCRN MAMM (CAD)W/CHRISTOPHER BILAT IMPRESSION: Stable bilateral screening mammogram. Yearly follow-up mammogram recommended. (A) ASSESSMENT CATEGORY: BIRADS Category 2: Benign. A letter regarding these results will be sent to the patient by the facility within 30 days. Approximately 10% of breast cancers are not detected by mammography. A normal mammogram should not delay biopsy of a clinically suspicious abnormality. [id number] Electronically Signed: Randolph Villalobos MD at 15:00 EDT ,
== END | disposition home or self-care (01) ==
PROVIDERS: PCP Family Medicine; Referring Provider Registered Nurse; Visit Provider Registered Nurse
DX: Z12.31 Encounter for screening mammogram for malignant neoplasm of breast (principal)
CPT/HCPCS: 77063; 77067

== ENCOUNTER → 2025-01-23 | Outpatient (CLI) | payer BC, SELFPAY ==
[2025-01-23 17:38] LABS: Absolute Lymphocyte Count 1.92 X10^3/uL (0.83-4.51); Absolute Neutrophil Count 3.5 X10^3/uL (2.0-7.7); Basophil# 0.05 X10^3/uL; Basophil% 0.8 % (0-1); Eosinophil# 0.26 X10^3/uL; Eosinophils% 4.2 % (0-5); Hematocrit 42.9 % (37-47); Hemoglobin 14.2 g/dL (12.0-15.0); Lymphocyte # 1.92 X10^3/ul (0.83-4.51); Lymphocyte % 30.7 % (19-41); Mean Corp Hgb Conc 33.1 g/dL (32-36); Mean Corpuscular Hgb 29.2 pg (27.0-32.0); Mean Corpuscular Volume 88.1 fL (81-99); Mean Platelet Vol. 11.1 fl (6.2-12.0); Monocyte# 0.54 X10^3/uL; Monocyte% 8.6 % (0-10); NRBC Flagged by Analyzer 0 % (0-5); Neutrophil # 3.47 X10^3/uL (2.7-7.7); Neutrophil % 55.4 % (47-70); Platelet Count 210 K/mm3 (150-450); RBC Distribution Width CV 13.4 % (11.6-14.6); Red Blood Count 4.87 M/mm3 (4.2-5.4); White Blood Count 6.3 K/mm3 (4.4-11.0)
[2025-01-23 17:53] LABS: Cholesterol 204 mg/dL (<=200); High Density Lipoprotein 49 mg/dL; Low Density Lipoprotein Calc. 105 mg/dL; Triglycerides 248 mg/dL; Very Low Density Lipoprotein 50 mg/dL (5-40); Vitamin B12 500 pg/mL (180-914); Vitamin D,25 Hydroxy 24.9 ng/mL (30-100); cholesterol:hdl ratio screen 4.13
[2025-01-23 18:30] LABS: Hemoglobin A1c 5.2 % (<=5.6)
[2025-01-23 21:23] LABS: ALB/GLOB Ratio 1.8 RATIO (0.9-2.4); AST(SGOT) 18 U/L (<=31); Alanine Aminotransfer ALT/SGPT 15 U/L (<=34); Albumin, Serum 4.7 g/dL (3.5-5.0); Alkaline Phosphatase 78 U/L (35-104); Anion Gap 12 (5-15); BUN 15 mg/dL (4-19); BUN/Creat Ratio 21.1 RATIO (10-20); Calcium 10.1 mg/dL (7.6-11.0); Carbon Dioxide 23.7 mmol/L (22.0-29.0); Chloride 104 mmol/L (96-108); Creatinine, Serum 0.7 mg/dL (0.6-1.0); EST Glomerular Filtration Rate 102 (>60); Globulin 2.6 g/dL (2.2-4.2); Glucose 87 mg/dL (70-99); Potassium 4.2 mmol/L (3.3-5.1); Protein, Total 7.3 g/dL (5.9-8.4); Sodium Level 141 mmol/L (133-145); Total Bilirubin 0.42 mg/dL (0.00-1.30)
== END | disposition home or self-care (01) ==
LOC: VSLAB 16:04
PROVIDERS: PCP Nurse Practitioner Family; Visit Provider Nurse Practitioner Family
DX: Z00.00 Encounter for general adult medical examination without abnormal findings (principal); E56.9 Vitamin deficiency, unspecified
CPT/HCPCS: 36415; 80053; 80061; 82306; 82607; 83036; 84443; 85025

== ENCOUNTER 2025-05-09 06:19 | Day surgery (SDC) | payer BC, SELFPAY ==
--- OUTSIDE RECORDS SUMMARY | 2025-05-09 06:21 | XMS RPT_ITS | CCD ---
Author Organization [facility] Care Team Providers Care Weaver Hand Loom Name Role Phone PSINDA APRIL Unavailable Unavailab ellie REYNOSOR TRINI KAMRAN Unavailable Unavailable HARPSTER, JULIO CESAR APRIL Unavailable Unavailab le HARPSTER, JULIO CESAR APRIL Unavailable Unavailab Jey Burgess Attending Unavailable Wainscott, Julio Cesar April Primary Care Unavailab le Wainscott, Julio Cesar April Attending Unavailab le Wainscott, Julio Cesar April Primary Care Unavailab le [place]ainscott, Julio Cesar April Admitting Unavailab le Wainscott, Julio Cesar April Attending Unavailab le Wainscott, Julio Cesar April Primary Care Unavailab le [place]ain[place]ott, Julio Cesar April Admitting Unavailab le Wainscott, Julio Cesar April Primary Care Unavailab le Ivanauskas, Saulius Admitting Unavailable Ivanauskas, Saulius Attending Unavailable Wainscott, Julio Cesar April Attending Unavailab le Wainscott, Julio Cesar April Primary Care Unavailab le [place]ain[place]ott, Julio Cesar April Admitting Unavailab Brent Santoro Consulting Wainscott, Julio Cesar April Admitting Unavailab le [place]ainscott, Julio Cesar April Attending Unavailab le Wainscott, Julio Cesar April Primary Care Unavailab Brent Santoro Attending Unavailable Wainscott, Julio Cesar April Primary Care Unavailab le Wainscott, Julio Cesar Unavailable [phone] Unavailable Unavailable Carlos PLATFORM CONSULTANT, PLATFORM CONSULTANT-C Julio Cesar Primary Care Provider Carlos PLATFORM CONSULTANT, PLATFORM CONSULTANT-C Julio Cesar Referring Provider Dr. Sonja Landaverde Attending Provider [phone] Mallory Lewis Attending Provider Unavailable Dr. Roge Sarkar Attending Provider Dr. Roge Sarkar Other Provider Dr. Sonja Landaverde Primary Care Provider [phone] Dr. Sonja Landaverde Referring Provider [phone] Julio Cesar Holguin Unavailable [phone] Kerry Hardy Unavailable Unavailable Carlos, Ms. Julio Cesar Mccauley Primary Care Unava illigia Holguin, Ms. Regan Parisa Attending UnaKerry Urbina Attending Unavailab le Wainscott, Ms. Regan Parisa Primary Care Unava Dr. Sonja Peoples Primary Care Provider [phone] Dr. Sonja Landaverde Referring Provider [phone] ROSIE Grant Attending Provider NO, PHYSICIAN Primary Care Unavailable VENKAT HUDDLESTON Attending Unavaila Dr. Sonja Sarmiento MD Referring Provider [phone] Ladonna Grant CNM Attending Provider Neto Harris MD Primary Care Provider Matti PLATFORM CONSULTANT-C, Spencer Primary Care Provider Matti PLATFORM CONSULTANT-C, Spencer Attending Provider Matti RAPHAEL, Spencer Attending Unavailable Matti RAPHAEL, Spencer Primary Care Unavailable Ladonna Grant Attending Unavailable Ladonna Grant Referring Unavailable Neto Harris Primary Care Unavailable Roge Sarkar Attending Unavailable Roge Sarkar Referring Unavailable Matti RAPHAEL, Spencer Primary Care Unavailable Ladonna Grant Attending Unavailable Neto Harris Primary Care Unavailable Sonja Landaverde Referring Unavailable Spencer Garzon Referring Unavailable Roge Sarkar Attending Unavailable Matti RAPHAEL, Spencer Primary Care Unavailable Allergies Allergy Classification Reported Allergen(s) Allergy Type Date of Onset Reaction(s) Facility (12 sources) codeine; Translations: [CODEINE] Drug Allergy 7 [facility] Repository (8 sources) Sulfonamides (Antibiotic); Translations: [SULFA (SULFONAMIDE ANTIBIOTICS)] Propensity to adverse reactions to drug (disorder) 7 Other [facility] Repository (4 sources) Sulfonamides (Antibiotic); Translations: [sulfa drugs] Propensity to adverse reactions to drug (disorder) [facility] Repository Medications Current Medications Medication Drug Class(es) Dates Sig (Normalized) Sig (Original) aspirin 81 mg chewable tablet (9 sources) Platelet Aggregation Inhibitor, Nonsteroidal Anti-inflammatory Drug Start: 03-15-2022 End: 11-09-2022 take 1 tablet by mouth once daily Aspirin (Aspirin Childrens) 81 mg tablet,chewable Active 81 mg PO DAILY November 09, 2022 1:59pm Start: 09-29-2021 take 1 tablet by zoran th once daily Aspirin 81 MG Oral Tablet Chewable Take 1 tablet daily Quantity: 30 Refills: 11 Ordered: 29-Sep-2021 Julio Cesar Mathew Start : 29-Sep-2021 Active Completed/Discontinued Medications Medication Drug Class(es) Dates Sig (Normalized) Sig (Original) acetaminophen 325 mg / oxyCODONE hydrochloride 5 mg oral tablet (5 sources) Opioid Agonist Start: 06-21-2019 End: 06-30-2019 Oxycodone-Acetamino phen 1 TABLET tablet Discontinued 1 - 2 {tbl} PO EVERY 4 HOURS NEEDED as needed for Pain 15 June 21, 2019 June 27, 2019 12:00am June 30, 2019 12:08am Start: 06-21-2019 End: 06-30-2019 take 1 tablet by mouth every four hours as needed Oxycodone-Acetaminophen Discontinued 1 - 2 TABLET PO EVERY 4 HOURS NEEDED 15 June 21, 2019 June 30, 2019 12:08am atorvastatin 20 mg oral tablet (14 sources) HMG-CoA Reductase Inhibitor Start: 03-15-2022 End: 01-12-2023 take 1 tablet by mouth at bedtime Atorvastatin 20 mg tablet Discontinued 20 mg PO AT BEDTIME January 12, 2023 10:00am January 12, 2023 3:19pm Start: 09-29-2021 take 1 tablet by zoran th at bedtime Atorvastatin Calcium 20 MG Oral Tablet TAKE 1 TABLET AT BEDTIME. Quantity: 90 Refills: 3 Ordered: 29-Sep-2021 Julio Cesar Mathew Start : 29-Sep-2021 Active atorvastatin Cali ntity: 0 Refills: 0 Ordered: 25-Sep-2022 Vidal Andrade Generic Substitution Allowed naproxen 250 mg oral tablet (5 sources) Nonsteroidal Anti-inflammatory Drug Start: 06-21-2019 End: 07-09-2019 take 250-500 mg by mouth every eight hours as needed for pain Naproxen 250 MG tablet Discontinued 250 - 500 mg PO EVERY 8 HOURS NEEDED as needed for MILD PAIN June 21, 2019 12:00am July 09, 2019 1:49pm omeprazole 40 mg delayed release oral capsule (5 sources) Proton Pump Inhibitor Start: 03-14-2019 End: 07-09-2019 take 1 capsule by mouth once daily as needed for gastroesophageal reflux disease Omeprazole 40 mg capsule,delayed release(DR/EC) Discontinued 40 mg PO DAILY as needed for REFLUX March 14, 2019 12:00am July 09, 2019 1:49pm valACYclovir 500 mg oral tablet (20 sources) Herpesvirus Nucleoside Analog DNA Polymerase Inhibitor, Herpes Simplex Virus Nucleoside Analog DNA Polymerase Inhibitor, Herpes Zoster Virus Nucleoside Analog DNA Polymerase Inhibitor Start: 08-12-2020 End: 11-10-2022 take 1 tablet by mouth twice daily Valacyclovir 500 mg tablet Discontinued 500 mg PO TWICE A DAY February 22, 2022 11:26am June 08, 2022 12:12pm Problems Active Problems Problem Classification Problem Date Documented Date Episodic/Chronic Abdominal hernia (1 source) Hiatal hernia; Translations: [Diaphragmatic hernia without mention of obstruction or gangrene] Episodic Administrative/social admission (3 sources) Persons encountering health services in other specified circumstances; Translations: [Other reasons for seeking consultation] Episodic Benign neoplasm of uterus (5 sources) Uterine leiomyoma; Translations: [Leiomyoma of uterus, unspecified] 08-26-2021 Episodic Comment on above: plan LAVLj BS, verito Blackmon BS. Conditions associated with dizziness or vertigo (2 sources) Dizziness and giddiness; Translations: [Dizziness and giddiness] Onset: 07-18-2024 Episodic Coronary atherosclerosis and other heart disease (1 source) Coronary arteriosclerosis; Translations: [Coronary atherosclerosis of unspecified type of vessel, [place] or graft] Chronic Disorders of lipid metabolism (10 sources) Hyperlipidemia; Translations: [Other and unspecified hyperlipidemia] Chronic Endometriosis (5 sources) Endometriosis (clinical); Translations: [Endometriosis, unspecified] 08-26-2021 Chronic Comment on above: depot lupron discuss ed if persistent dyspareunia. seen at hysterectomy stage III, all scar tissue removed Genitourinary symptoms and ill-defined conditions (5 sources) Genuine stress incontinence; Translations: [Stress incontinence (female) (male)] 06-21-2019 Chronic Comment on above: urogyn consult with alyx scott pelvic floor physical therapy Miscellaneous mental health disorders (3 sources) Adjustment insomnia; Translations: [Transient disorder of initiating or maintaining sleep] Episodic Other bone disease and musculoskeletal deformities (3 sources) Somatic dysfunction of upper limb; Translations: [Disorder of bone and cartilage, unspecified] Episodic Other ear and sense organ disorders (1 source) Other specified disorders of right ear; Translations: [Other specified disorders of right ear] Onset: 09-25-2022 Episodic Other nervous system disorders (3 sources) Narcolepsy; 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, without cataplexy] Chronic Other screening for suspected conditions (not mental disorders or infectious disease) (2 sources) Ultrasound scan abnormal; Translations: [Abnormal findings on diagnostic imaging of other specified body structures] 06-23-2023 Chronic Other skin disorders (3 sources) Night sweats; Translations: [Generalized hyperhidrosis] Episodic Other upper respiratory disease (2 sources) Pain in throat 09-25-2022 Episodic Comment on above: SORE THROAT Otitis media and related conditions (2 sources) Dysfunction of eustachian tube; Translations: [Dysfunction of Eustachian tube] Onset: 09-25-2022 09-25-2022 Episodic Residual codes; unclassified (3 sources) Harmful pattern of use of nicotine; Translations: [Tobacco use disorder] Episodic Unclassified (1 source) Eustachian tube dysfunction 09-25-2022 Viral infection (5 sources) Herpes simplex; Translations: [Herpesviral infection, unspecified] 03-15-2022 Episodic Past or Other Problems Problem Classification Problem Date Documented Date Episodic/Chronic Nonspecific chest pain (4 sources) Chest discomfort; Translations: [Other chest pain] Onset: 10-30-2021 Episodic Other and unspecified benign neoplasm (2 sources) Other benign neoplasm of skin of right upper limb, including shoulder; Translations: [Other benign neoplasm of skin of right upper limb, including shoulder] Onset: 09-07-2017 Episodic Other circulatory disease (2 sources) Nevus, non-neoplastic; Translations: [Nevus, non-neoplastic] Onset: 09-07-2017 Episodic Other screening for suspected conditions (not mental disorders or infectious disease) (18 sources) Patient encounter status; Translations: [Screening for other and unspecified cardiovascular conditions] Onset: 12-28-2024 Episodic Other skin disorders (2 sources) Actinic keratosis; Translations: [Actinic keratosis] Onset: 09-07-2017 Episodic Residual codes; unclassified (3 sources) Past history of procedure; Translations: [Other specified personal history presenting hazards to health] Onset: 04-25-2020 Episodic Comment on above: [facility]; Results Test Name Value Interpretation Reference Range Facility Surgery Visit Reporton 04-30 Surgery Visit Report [facility] [address] [place] [address] OFFICE VISIT Date of Service: 04/30/25 MR#: [id number] Acct: [id number] Name: EMBER CARRION Rep #: [id number] : 1975 Provider: Dr. Roge rivera MD Age/Sex: 50/F Location: [facility] Status: Signed Intake Vital Signs 12/28/24 08:08 04/30/25 09:31 Height 5 ft 1 in 5 ft 1 in Weight: 128 lb BMI 24.1 BP 101/60 Blood Pressure Location Rt brachial Position Sitting Pulse 73 Pulse Source Monitor Pulse Oximetry (%) 98 Oxygen Delivery Method room air Intake Visit Reasons: RECALL COLONOSCOPY, BLOOD IN STOOL Chief Complaint: recall colonoscopy/blood in stool Is patient in pain?: No Allergies codeine Allergy (Mild, Verified 04/30/25 09:33) Other Sulfa (Sulfonamide Antibiotics) Allergy (Mild, Verified 04/30/25 09:33) Other Medications ???Medication ???Instructions ???Recorded ???Confirmed ???Type valacyclovir 500 mg tablet 500 mg PO BID #30 tabs 11/10/22 Rx (Valtrex) cholecalciferol (vitamin D3) 25 25 mcg PO QDAY 04/30/25 04/30/25 H istory mcg (1,000 unit) capsule PFSH Medical History Abnormal mammogram Wears glasses Wears partial dentures Smoker Preventative health care Encounter to establish care Colon cancer screening Herpes Hyperlipidemia Surgical History History of LAVH H/O tubal ligation Family History Grandmother Cancer Lung cancer Grandfather Cancer prostate Anxiety Depression Lung cancer Mother Hyperlipidemia Other Heart disease Social History Smoking Status: Current some day smoker tobacco type: e-cigarettes Electronic Cigarette Use: with nicotine alcohol intake: never substance use type: does not use caffeine: Yes what type of physical activity do you participate in: none frequency: 3-4 times per week seatbelt use: always do you feel safe at home: Yes additional social history: - [employer] HPI HPI HPI: Patient is a 50-year-old female who is known to me from a prior colonoscopy completed May 2022 and who presents for need to schedule surveillance colonoscopy secondary to history of advanced adenomatous polyps (serrated adenomas) at index scope as well as reports of some recent blood per rectum. They are referred for surgical consultation from Spencer Chino NP. Patient shares that for the past 1 to 1-1/2 months she has experienced some dark blood in her stools. She states that this has spontaneously resolved as of the last week. She she attributes this resolution to no longer eating nuts as she had been doing in some excess. She denies any concurrent use of Pepto-Bismol or iron supplements during this time. She further denies any evidence of hemorrhoids with specific denial of any signs of tissue protrusion, pain or itching. They describe their bowel habits as normal. They have approximately 1 bowel movements per day and spend roughly 5-7 minutes on the toilet but acknowledges there has been some significant straining of late. They do not regularly take fiber supplements. They do consume significant fiber in their regular diet. Additionally, they report they have made a conscious effort to increase their water intake as previously they had been drinking rather large volume of pop Patient has no family history of colon cancer, inflammatory bowel disease, diverticulitis. The patient's weight is stable. The patient is not prescribed anticoagulants/blood thinners. Relevant prior abdominal surgical history includes: LAVH Patient does not have a significant history of GERD/heartburn ROS General General: No weight change, appetite, fatigue, colon cancer, breast cancer or weakness HEENT HEENT: No difficulty swallowing, eye injury, eye surgery, swollen glands or hoarseness Endo Endocrine: No thyroid disease, diabetes mellitus, thyroid cancer, Hair loss, heat intolerance or cold intolerance Skin Skin: No rash or changing moles Musc Musculoskeletal: No back problems, arthritis, rheumatoid arthritis, gout or joint pain Cardio Cardiovascular: No murmur, pacemaker, heart disease, atrial fibrillation, high blood pressure, heart attack, heart stent, palpitations, shortness of breath with exertion or chest pain Psych Psychiatric: No depression, anxiety or hearing voices Resp Respiratory: No shortness of breath, No sleep apnea, No cough, No COPD, No asthma, No emphysema and No wheezing Gastro Gastrointestinal: No abdominal pain, No nausea or vomiting, No diarrhea, No constipation, Yes blood in stool, No acid reflux, No hemorrhoids, N (more content not included)... Normal [facility] Absolute neutrophil countOrd ered By: Spencer Chino on 01-23-2025 Neutrophils (Bld) [#/Vol] 3.5 10*3/uL 2.0-7.7 [facility] BUN/creatinine ratioOrdered By: Spencer Chino on 01-23-2025 Urea nitrogen/Creatinine [Mass ratio] 21.1 mg/mg High 10-20 [facility] Basophil percentageOrdered B y: Spencer Chino on 01-23-2025 Basophils/100 WBC (Bld) 0.8 % 0-1 [facility] Bilirubin, totalOrdered By: Spencer Chino on 01-23-2025 Bilirubin [Mass/Vol] 0.42 mg/dL 0.00-1.30 [facility] CBC W/Diff, Automatedon 12-30 Absolute Lymph 1.92 X10 3/uL Normal 0.83-4.51 [facility] Comment on above: Performed By: #### L 501.9520, L500.4050, L500.4100, L100.0100, L506.1001, L503.0106, L501.9985 #### [facility] [address] [place], [address] Absolute Neut 3.5 X10 3/uL Normal 2.0-7.7 [facility] Comment on above: Performed By: #### L [id number], L500.4050, L500.4100, L100.0100, L506.1001, L503.0106, L501.9985 #### [facility] [address] [place], [address] Basophils/100 WBC (Bld) 0.8 % Normal 0-1 [facility] Comment on above: Performed By: #### L [id number], L500.4050, L500.4100, L100.0100, L506.1001, L503.0106, L501.9985 #### [facility] [address] [place], [address] Eosinophils/100 WBC (Bld) 4.2 % Normal 0-5 [facility] Comment on above: Performed By: #### L [id number], L500.4050, L500.4100, L100.0100, L506.1001, L503.0106, L501.9985 #### [facility] [address] [place], [address] Erythrocyte distribution width (RBC) [Ratio] 13.4 % Normal 11.6-14.6 [facility] Comment on above: Performed By: #### L 501.9520, L500.4050, L500.4100, L100.0100, L506.1001, L503.0106, L501.9985 #### [facility] [address] [place], [address] Hematocrit (Bld) [Volume fraction] 42.9 % Normal 37-47 [facility] Comment on above: Performed By: #### L 501.9520, L500.4050, L500.4100, L100.0100, L506.1001, L503.0106, L501.9985 #### [facility] [address] [place], [address] Hemoglobin (Bld) [Mass/Vol] 14.2 g/dL Normal 12.0-15.0 [facility] Comment on above: Performed By: #### L 501.9520, L500.4050, L500.4100, L100.0100, L506.1001, L503.0106, L501.9985 #### [facility] [address] [place], [address] IG% 0.300 Normal 0.0-0.9 [facility] Comment on above: Result Comment: IG% - Immature Granulocytes (promyelocytes, myelocytes and metamyelocytes) > 1% indicates that a LEFT SHIFT is Present. Performed By: #### L 501.9520, L500.4050, L500.4100, L100.0100, L506.1001, L503.0106, L501.9985 #### [facility] [address] [place], [address] Lymphocytes/100 WBC (Bld) 30.7 % Normal 19-41 [facility] Comment on above: Performed By: #### L 501.9520, L500.4050, L500.4100, L100.0100, L506.1001, L503.0106, L501.9985 #### [facility] [address] [place], [address] MCH (RBC) [Entitic mass] 29.2 pg Normal 27.0-32.0 [facility] Comment on above: Performed By: #### L 501.9520, L500.4050, L500.4100, L100.0100, L506.1001, L503.0106, L501.9985 #### [facility] [address] [place], [address] MCHC (RBC) [Mass/Vol] 33.1 g/dL Normal 32-36 [facility] Comment on above: Performed By: #### L 501.9520, L500.4050, L500.4100, L100.0100, L506.1001, L503.0106, L501.9985 #### [facility] [address] [place], [address] MCV (RBC) [Entitic vol] 88.1 fL Normal 81-99 [facility] Comment on above: Performed By: #### L 501.9520, L500.4050, L500.4100, L100.0100, L506.1001, L503.0106, L501.9985 #### [facility] [address] [place], [address] Monocytes/100 WBC (Bld) 8.6 % Normal 0-10 [facility] Comment on above: Performed By: #### L 501.9520, L500.4050, L500.4100, L100.0100, L506.1001, L503.0106, L501.9985 #### [facility] [address] [place], [address] Neutrophils/100 WBC (Bld) 55.4 % Normal 47-70 [facility] Comment on above: Performed By: #### L 501.9520, L500.4050, L500.4100, L100.0100, L506.1001, L503.0106, L501.9985 #### [facility] [address] [place], [address] Nucleated RBC (Bld) [#/Vol] 0 10*3/uL Normal 0-5 [facility] Comment on above: Performed By: #### L 501.9520, L500.4050, L500.4100, L100.0100, L506.1001, L503.0106, L501.9985 #### [facility] [address] [place], [address] Platelet mean volume (Bld) [Entitic vol] 11.1 fL Normal 6.2-12.0 [facility] Comment on above: Performed By: #### L 501.9520, L500.4050, L500.4100, L100.0100, L506.1001, L503.0106, L501.9985 #### [facility] [address] [place], [address] Platelets (Bld) [#/Vol] 210 10*3/uL Normal 150-450 [facility] Comment on above: Performed By: #### L 501.9520, L500.4050, L500.4100, L100.0100, L506.1001, L503.0106, L501.9985 #### [facility] [address] [place], [address] RBC (Bld) [#/Vol] 4.87 10*6/uL Normal 4.2-5.4 [facility] Comment on above: Performed By: #### L 501.9520, L500.4050, L500.4100, L100.0100, L506.1001, L503.0106, L501.9985 #### [facility] [address] [place], [address] RDW SD 43.0 fl Normal 35.1-43.9 [facility] Comment on above: Performed By: #### L 501.9520, L500.4050, L500.4100, L100.0100, L506.1001, L503.0106, L501.9985 #### [facility] [address] [place], [address] WBC (Bld) [#/Vol] 6.3 10*3/uL Normal 4.4-11.0 [facility] Comment on above: Performed By: #### L 501.9520, L500.4050, L500.4100, L100.0100, L506.1001, L503.0106, L501.9985 #### [facility] [address] [place], [place], [id number] ([phone]) Calculated very low density lipoprotein (VLDL) cholesterol measurementOrdered By: Spencer Chino on 01-23-2025 VLDL Cholesterol 50 mg/dL High 5-40 [facility] Carbon dioxide measurementOr dered By: Spencer Chino on 01-23-2025 CO2 [Moles/Vol] 23.7 mmol/L 22.0-29.0 [facility] Chloride measurementOrdered By: Spencer Chino on 01-23-2025 Chloride [Moles/Vol] 104 mmol/L 96-108 [facility] Comprehensive Metabolic Prof ilon 01-23-2025 Albumin [Mass/Vol] 4.7 g/dL Normal 3.5-5.0 [facility] Comment on above: Performed By: #### L 501.9520, L500.4050, L500.4100, L100.0100, L506.1001, L503.0106, L501.9985 #### [facility] [address] [place], [place], [id number] Albumin/Globulin [Mass ratio] 1.8 {ratio} Normal 0.9-2.4 [facility] Comment on above: Performed By: #### L 501.9520, L500.4050, L500.4100, L100.0100, L506.1001, L503.0106, L501.9985 #### [facility] [address] [place], [address] ALK PHOS 78 U/L Normal 35-104 [facility] Comment on above: Performed By: #### L 501.9520, L500.4050, L500.4100, L100.0100, L506.1001, L503.0106, L501.9985 #### [facility] [address] [place], [address] ALT [Catalytic activity/Vol] 15 U/L Normal <=34 [facility] Comment on above: Performed By: #### L 501.9520, L500.4050, L500.4100, L100.0100, L506.1001, L503.0106, L501.9985 #### [facility] [address] [place], [address] Anion gap [Moles/Vol] 12 mmol/L Normal 5-15 [facility] Comment on above: Performed By: #### L 501.9520, L500.4050, L500.4100, L100.0100, L506.1001, L503.0106, L501.9985 #### [facility] [address] [place], [place], [id number] (138) AST [Catalytic activity/Vol] 18 U/L Normal <=31 [facility] Comment on above: Performed By: #### L 501.9520, L500.4050, L500.4100, L100.0100, L506.1001, L503.0106, L501.9985 #### [facility] [address] [place], [place], [id number] (552) Bilirubin [Mass/Vol] 0.42 mg/dL Normal 0.00-1.30 [facility] Comment on above: Performed By: #### L 501.9520, L500.4050, L500.4100, L100.0100, L506.1001, L503.0106, L501.9985 #### [facility] [address] [place], [address] BUN/CRE 21.1 RATIO High 10-20 [facility] Comment on above: Performed By: #### L 501.9520, L500.4050, L500.4100, L100.0100, L506.1001, L503.0106, L501.9985 #### [facility] [address] [place], [address] Calcium [Mass/Vol] 10.1 mg/dL Normal 7.6-11.0 [facility] Comment on above: Performed By: #### L 501.9520, L500.4050, L500.4100, L100.0100, L506.1001, L503.0106, L501.9985 #### [facility] [address] [place], [address] Chloride [Moles/Vol] 104 mmol/L Normal 96-108 [facility] Comment on above: Performed By: #### L 501.9520, L500.4050, L500.4100, L100.0100, L506.1001, L503.0106, L501.9985 #### [facility] [facility] [address] [place], [address] CO2 [Moles/Vol] 23.7 mmol/L Normal 22.0-29.0 [facility] Comment on above: Performed By: #### L 501.9520, L500.4050, L500.4100, L100.0100, L506.1001, L503.0106, L501.9985 #### [facility] [address] [place], [address] Creatinine [Mass/Vol] 0.7 mg/dL Normal 0.6-1.0 [facility] Comment on above: Performed By: #### L 501.9520, L500.4050, L500.4100, L100.0100, L506.1001, L503.0106, L501.9985 #### [facility] [address] [place], [address] GFR/1.73 sq M.predicted among non-blacks MDRD (S/P/Bld) [Vol rate/Area] 102 mL/min/{1.73_m2} Normal >60 [facility] Comment on above: Result Comment: mL/m in/1.73m2 CKD-EPI Creatinine Equation (2020) Performed By: #### L 501.9520, L500.4050, L500.4100, L100.0100, L506.1001, L503.0106, L501.9985 #### [facility] [address] [place], [address] Globulin (S) [Mass/Vol] 2.6 g/dL Normal 2.2-4.2 [facility] Comment on above: Performed By: #### L [id number], L500.4050, L500.4100, L100.0100, L506.1001, L503.0106, L501.9985 #### [facility] [address] [place], [address] Glucose [Mass/Vol] 87 mg/dL Normal 70-99 [facility] Comment on above: Performed By: #### L 501.9520, L500.4050, L500.4100, L100.0100, L506.1001, L503.0106, L501.9985 #### [facility] [address] [place], [address] Potassium [Moles/Vol] 4.2 mmol/L Normal 3.3-5.1 [facility] Comment on above: Performed By: #### L 501.9520, L500.4050, L500.4100, L100.0100, L506.1001, L503.0106, L501.9985 #### [facility] [address] [place], [address] Sodium [Moles/Vol] 141 mmol/L Normal 133-145 [facility] Comment on above: Performed By: #### L 501.9520, L500.4050, L500.4100, L100.0100, L506.1001, L503.0106, L501.9985 #### [facility] [address] [place], [address] T PROT 7.3 g/dL Normal 5.9-8.4 [facility] Comment on above: Performed By: #### L 501.9520, L500.4050, L500.4100, L100.0100, L506.1001, L503.0106, L501.9985 #### [facility] [address] [place], [address] Urea nitrogen [Mass/Vol] 15 mg/dL Normal 4-19 [facility] Comment on above: Performed By: #### L 501.9520, L500.4050, L500.4100, L100.0100, L506.1001, L503.0106, L501.9985 #### [facility] [address] [place], [address] Eosinophil percentageOrdered By: Spencer Chino on 01-23-2025 Eosinophils/100 WBC (Bld) 4.2 % 0-5 [facility] Erythrocyte distribution wid th ratioOrdered By: Spencer Chino on 01-23-2025 Erythrocyte distribution width (RBC) [Ratio] 13.4 % 11.6-14.6 [facility] Erythrocyte distribution wid th standard deviationOrdered By: Spencer Chino on 01-23-2025 Erythrocyte distribution width (RBC) [Entitic vol] 43.0 fL 35.1-43.9 [facility] GFR/1.73 sq M.predicted suzi g non-blacks MDRD (S/P/Bld) [Vol rate/Area]Ordered By: Spencer Chino on 01-23-2025 Estimated GFR (MDRD) Non-Af Amer 102 >60 [facility] Comment on above: mL/min/1.73m2 CKD-EP I Creatinine Equation (2020) Hematocrit Auto (Bld) [Volum e fraction]Ordered By: Spencer Chino on 01-23-2025 Hematocrit (Bld) [Volume fraction] 42.9 % 37-47 [facility] Hemoglobin A1con 01-23-2025 HbA1c (Bld) [Mass fraction] 5.2 % Low <=5.6 [facility] Comment on above: Performed By: #### L 501.9520, L500.4050, L500.4100, L100.0100, L506.1001, L503.0106, L501.9985 #### [facility] [address] [place], [place], [id number] Hemoglobin A1c percentageOrd ered By: Spencer Chino on 01-23-2025 HbA1c (Bld) [Mass fraction] 5.2 % Low >5.7 [facility] Hemoglobin measurementOrdere d By: Spencer Chino on 01-23-2025 Hemoglobin (Bld) [Mass/Vol] 14.2 g/dL 12.0-15.0 [facility] Immature granulocytes/100 WB C Auto (Bld)Ordered By: Spencer Chino on 01-23-2025 Immature granulocytes/100 WBC (Bld) 0.300 % 0.0-0.9 [facility] Comment on above: IG% - Immature Granu locytes (promyelocytes, myelocytes and metamyelocytes) > 1% indicates that a LEFT SHIFT is Present. L503.0106on 01-23-2025 Cobalamin (Vitamin B12) [Mass/Vol] 500 pg/mL Normal 180-914 [facility] Comment on above: Performed By: #### L 501.9520, L500.4050, L500.4100, L100.0100, L506.1001, L503.0106, L501.9985 #### [facility] [address] [place], [place], [id number] L506.1001on 01-23-2025 Vitamin D 25-OH 24.9 ng/mL Low 30-100 [facility] Comment on above: Result Comment: Yina min D Status Deficiency: <20 ng/mL (50nmol/L) Insufficiency: 20-30 ng/mL (50-75 nmol/L) Sufficiency: 30-100 ng/mL (75-250 nmol/L) Toxicity: >100 ng/mL (>250 nmol/L) Performed By: #### L 501.9520, L500.4050, L500.4100, L100.0100, L506.1001, L503.0106, L501.9985 #### [facility] [address] [place], [place], [id number] LDL calc ser/plasOrdered By: Spencer Chino on 01-23-2025 LDL Cholesterol, Calculated 105 mg/dL [facility] Comment on above: Tmcsctffdo=313-569 m g/dL & Higher Qmgx=158 mg/dL or greater Laboratory - Chemistry and C hemistry - challengeOrdered By: Spencer Chino on 01-23-2025 AST [Catalytic activity/Vol] 18 U/L <32 [facility] Lipid Profileon 01-23-2025 CHOL:HDL 4.13 Normal [facility] Comment on above: Performed By: #### L 501.9520, L500.4050, L500.4100, L100.0100, L506.1001, L503.0106, L501.9985 #### [facility] [address] [place], [address] Cholesterol [Mass/Vol] 204 mg/dL High <=200 [facility] Comment on above: Result Comment: Chol esterol level, Desirable <200 mg/dL Borderline high cholesterol 200-239 mg/dL High cholesterol >=240 mg/dL Recommendations of the NCEP Adult Treatment Panel for the following risk-cutoff thresholds for the [place] population. Performed By: #### L 501.9520, L500.4050, L500.4100, L100.0100, L506.1001, L503.0106, L501.9985 #### [facility] [address] [place], [place], [id number] Cholesterol in HDL [Mass/Vol] 49 mg/dL Normal [facility] Comment on above: Result Comment: Autumn onal Cholesterol Education Program (NCEP) guidelines: <40 mg/dL: Low HDL-cholesterol (major risk factor for CHD) >= 60 mg/dL: High HDL-cholesterol (negative risk factor for CHD) HDL-cholesterol is affected by a number of factors, e.g. smoking, exercise, hormones, sex and age. Performed By: #### L 501.9520, L500.4050, L500.4100, L100.0100, L506.1001, L503.0106, L501.9985 #### [facility] [address] [place], [address] Cholesterol in LDL [Mass/Vol] 105 mg/dL Normal [facility] Comment on above: Result Comment: Bord pgfwfb=041-097 mg/dL Higher Twgz=488 mg/dL or greater Performed By: #### L 501.9520, L500.4050, L500.4100, L100.0100, L506.1001, L503.0106, L501.9985 #### [facility] [address] [place], [place], [id number] ([address]) Cholesterol in VLDL [Mass/Vol] 50 mg/dL High 5-40 [facility] Comment on above: Performed By: #### L 501.9520, L500.4050, L500.4100, L100.0100, L506.1001, L503.0106, L501.9985 #### [facility] [address] [place], [address] Triglyceride [Mass/Vol] 248 mg/dL High [facility] Comment on above: Result Comment: The drugs N-Acetylcysteine and Metamizole may falsely depress this assay. Normal range: <150 mg/dL Borderline High: 150-199 mg/dL High: 200-499 mg/dL Very High: >500 mg/dL Performed By: #### L 501.9520, L500.4050, L500.4100, L100.0100, L506.1001, L503.0106, L501.9985 #### [facility] [address] [place], [address] Lymphocytes Auto (Unsp spec) [#/Vol]Ordered By: Spencer Chino on 01-23-2025 Lymphocytes (Bld) [#/Vol] 1.92 10*3/uL 0.83-4.51 [facility] Lymphocytes/100 WBC Auto (Un sp spec)Ordered By: Spencer Chino on 01-23-2025 Lymphocytes/100 WBC (Bld) 30.7 % 19-41 [facility] MCV (mean corpuscular volume ) determinationOrdered By: Spencer Chino on 01-23-2025 MCV (RBC) [Entitic vol] 88.1 fL 81-99 [facility] Mean corpuscular hemoglobin (MCH) determinationOrdered By: Spencer Chino on 01-23-2025 MCH (RBC) [Entitic mass] 29.2 pg 27.0-32.0 [facility] Mean corpuscular hemoglobin concentration (MCHC) determinationOrdered By: Spencer Chino on 01-23-2025 MCHC (RBC) [Mass/Vol] 33.1 g/dL 32-36 [facility] Mean platelet volume determi nationOrdered By: Spencer Chino on 01-23-2025 Platelet mean volume (Bld) [Entitic vol] 11.1 fL 6.2-12.0 [facility] Monocyte percentageOrdered B y: Spencer Chino on 01-23-2025 Monocytes/100 WBC (Bld) 8.6 % 0-10 [facility] Neutrophil percentageOrdered By: Spencer Chino on 01-23-2025 Neutrophils/100 WBC (Bld) 55.4 % 47-70 [facility] Nucleated red blood cell per centageOrdered By: Spencer Chino on 01-23-2025 Nucleated RBC/100 WBC (Bld) [Ratio] 0 % 0-5 [facility] Platelet countOrdered By: Shlomo Chino on 01-23-2025 Platelets (Bld) [#/Vol] 210 10*3/uL 150-450 [facility] RBC Auto (Bld) [#/Vol]Ordere d By: Spencer Chino on 01-23-2025 RBC (Bld) [#/Vol] 4.87 10*6/uL 4.2-5.4 [facility] Screening total cholesterol/ high density lipoprotein (HDL) cholesterol ratioOrdered By: Spencer Chino on 01-23-2025 Cholesterol.total/Choles terol in HDL [Mass ratio] 4.13 {ratio} [facility] Serum creatinine measurement (mass/volume)Ordered By: Spencer Chino on 01-23-2025 Creatinine [Mass/Vol] 0.7 mg/dL 0.70-1.20 [facility] Serum globulin measurementOr dered By: Spencer Chino on 01-23-2025 Globulin (S) [Mass/Vol] 2.6 g/dL 2.2-4.2 [facility] Serum glucose measurement (m ass/volume)Ordered By: Spencer Chino on 01-23-2025 Glucose [Mass/Vol] 87 mg/dL 70-99 [facility] Serum or plasma alanine luna otransferase (ALT) measurementOrdered By: Spencer Chino on 01-23-2025 ALT [Catalytic activity/Vol] 15 U/L <35 [facility] Serum or plasma albumin melanie urement (mass/volume)Ordered By: Spencer Chino on 01-23-2025 Albumin [Mass/Vol] 4.7 g/dL 3.5-5.0 [facility] Serum or plasma albumin/glob ulin mass ratioOrdered By: Spencer Chino on 01-23-2025 Albumin/Globulin [Mass ratio] 1.8 {ratio} 0.9-2.4 [facility] Serum or plasma alkaline maya sphatase measurementOrdered By: Spencer Chino on 01-23-2025 ALP [Catalytic activity/Vol] 78 U/L 35-104 [facility] Serum or plasma anion gap de termination (moles/volume)Ordered By: Spencer Chino on 01-23-2025 Anion gap [Moles/Vol] 12 mmol/L 5-15 [facility] Serum or plasma calcium melanie urement (mass/volume)Ordered By: Spencer Chino on 01-23-2025 Calcium [Mass/Vol] 10.1 mg/dL 7.6-11.0 [facility] Serum or plasma cholesterol in HDL measurement (mass/volume)Ordered By: Spencer Chino on 01-23-2025 Cholesterol in HDL [Mass/Vol] 49 mg/dL >40 [facility] Comment on above: National Cholesterol Education Program (NCEP) guidelines:<40 mg/dL: Low HDL-cholesterol (major risk factor for CHD)>= 60 mg/dL: High HDL-cholesterol (negative risk factor for CHD)HDL-cholesterol is affected by a number of factors, e.g. smoking, exercise, hormones, sex and age. Serum or plasma cholesterol measurement (mass/volume)Ordered By: Spencer Chino on 01-23-2025 Cholesterol [Mass/Vol] 204 mg/dL High <201 [facility] Comment on above: Cholesterol level, D esirable <200 mg/dLBorderline high cholesterol 200-239 mg/dLHigh cholesterol >=240 mg/dLRecommendations of the NCEP Adult Treatment Panel for the following risk-cutoff thresholds for the [place] population. Serum or plasma potassium me asurementOrdered By: Spencer Chino on 01-23-2025 Potassium [Moles/Vol] 4.2 mmol/L 3.3-5.1 [facility] Serum or plasma sodium measu rement (moles/volume)Ordered By: Spencer Chino on 01-23-2025 Sodium [Moles/Vol] 141 mmol/L 133-145 [facility] Serum or plasma urea nitroge n measurement (mass/volume)Ordered By: Spencer Chino on 01-23-2025 Urea nitrogen [Mass/Vol] 15 mg/dL 4-19 [facility] TSH DL <= 0.005 mIU/L QnOrde red By: Spencer Chino on 01-23-2025 Thyroid Stimulating Hormone (TSH) 1.240 uIU/mL 0.300-4.200 [facility] Thyroid Stim Hormone (TSH)on 01-23-2025 TSH 1.240 uIU/mL Normal 0.300-4.200 [facility] Comment on above: Performed By: #### L 501.9520, L500.4050, L500.4100, L100.0100, L506.1001, L503.0106, L501.9985 #### [facility] [address] [place], [place], [address] Total proteinOrdered By: Zehra Chino on 01-23-2025 Protein [Mass/Vol] 7.3 g/dL 5.9-8.4 [facility] Triglycerides measurementOrd ered By: Spencer Chino on 01-23-2025 Triglyceride [Mass/Vol] 248 mg/dL High <199 [facility] Comment on above: The drugs N-Acetylcy steine and Metamizole may falsely depress this assay. Normal range: <150 mg/dLBorderline High: 150-199 mg/dLHigh: 200-499 mg/dLVery High: >500 mg/dL Vitamin B12 ser/plasOrdered By: Spencer Chino on 01-23-2025 Cobalamin (Vitamin B12) [Mass/Vol] 500 pg/mL 180-914 [facility] Vitamin D, 25-hydroxyOrdered By: Spencer Chino on 01-23-2025 Vitamin D 25-Hydroxy 24.9 ng/mL Low 30-100 [facility] Comment on above: Vitamin D StatusDefi ciency: <20 ng/mL (50nmol/L)Insufficiency: 20-30 ng/mL (50-75 nmol/L)Sufficiency: 30-100 ng/mL (75-250 nmol/L)Toxicity: >100 ng/mL (>250 nmol/L) White blood cell (WBC) count Ordered By: Spencer Chino on 01-23-2025 WBC (Bld) [#/Vol] 6.3 10*3/uL 4.4-11.0 [facility] [employer] Office Visit Reporton 12-28-2024 [employer] Office Visit Report [facility] [address], [address] [place] [address] OFFICE VISIT Date of Service: 12/28/24 MR#: [id number] Acct: [id number] Name: EMBER CARRION Rep #: [id number] : 1975 Provider: ROSIE ramirez Age/Sex: 49/F Location[place] [facility] [place] Status: Signed Intake Vital Signs 12/14/23 09:21 12/28/24 08:03 12/28/24 08:08 Height 5 ft 1 in 5 ft 1 in 5 ft 1 in Weight: 126 lb BMI 23.8 BP 106/73 Intake Visit 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 Is patient in pain?: No Allergies codeine Allergy (Mild, Verified 12/28/24 08:06) Other Sulfa (Sulfonamide Antibiotics) Allergy (Mild, Verified 12/28/24 08:06) Other Medications ???Medication ???Instructions ???Recorded ???Confirmed ???Type aspirin 81 mg chewable tablet 81 mg PO DAILY #90 tabs 11/09/22 0 12/28/24 Rx (Aspirin [facility]) valacyclovir 500 mg tablet 500 mg PO BID #30 tabs 11/10/22 Rx (Valtrex) atorvastatin 20 mg tablet 20 mg PO QHS #90 tabs 01/12/23 Rx Is last menstrual period known: No Post menopausal: No Patient : No : No Control Method: tubal- hyst PFSH Medical History Abnormal mammogram Wears glasses Wears partial dentures Smoker Preventative health care Encounter to establish care Colon cancer screening Herpes Hyperlipidemia Surgical History History of LAVH H/O tubal ligation Family History Grandmother Cancer Lung cancer Grandfather Cancer prostate Anxiety Depression Lung cancer Mother Hyperlipidemia Other Heart disease Social History Smoking Status: Current some day smoker tobacco type: e-cigarettes Electronic Cigarette Use: with nicotine alcohol intake: never substance use type: does not use caffeine: Yes what type of physical activity do you participate in: none frequency: 3-4 times per week seatbelt use: always do you feel safe at home: Yes additional social history: - [employer] History 3 Elective abortions Hx Para 3 Spontaneous abortions Hx # Term Pregnancies Ectopic pregnancies Hx # Pregnancies Multiple births # of living children Past Pregnancies Del. Date Name GA/Weeks Outcome Route Bth Weight Gen Labor Lgth Anesthesia Del Locatn Provider FOB Unknown 1989 [facility] live - full term Unknown 1991 [facility] live - full term Unknown 1996 [place] live - full term HPI Encounter for routine gynecological examination Details: EMBER CARRION is a 49 year old who presents for annual exam. no concerns. has been participating in pelvic floor therapy with modest effects and is happy with results. Last PAP: 2019; normal. hpv neg History of abnormal PAP: no Last mammogram: 2023; normal History of abnormal mammogram: no Colon cancer screenin; normal Other preventative health care screenings: Neto Harris pcp Female Reproductive History Menopausal Symptoms: Yes hot flashes (occasional, not impacting ADLs), No night sweats, No difficulty concentrating and No change in libido ROS Const Constitutional: Reports as per HPI; Denies fatigue, increased appetite, poor appetite, night sweats, weight gain or weight loss Cardio Card: Denies chest pain Resp Resp: Denies cough or dyspnea GI GI: Reports as per HPI; Denies abdominal pain, bloating, constipation, nausea or vomiting : Reports as per HPI, hot flashes (occasional, not impacting ADLs) and other; Denies difficulty voiding, hematuria, nipple discharge, pelvic pain, urinary frequency, urinary incontinence, urinary hesitancy, urinary urgency, vaginal discharge, vaginal dryness, vaginal odor or vaginal pruritus Skin Skin/Breast: Denies changing lesions, breast mass, breast pain, breast skin changes or nipple discharge Psych Psych: Denies anxiety, change in libido, depression or difficulty concentrating Exam Const General: cooperative, healthy appearing, comfortable and no acute distress Neck Neck: normal visual inspection, full ROM, no lymphadenopathy and supple Thyroid: thyroid normal Chest Chest palpation inspection: normal inspection of the chest Breast inspection: normal inspection of the breasts Breast palpation: normal palpation of the breasts Resp Effort Inspection: normal respiratory effort, able to speak in complete sentences and symmetric chest movement Cardio Rhythm: regular rhythm GI Inspection: normal to inspection Palpation: soft and no hepatosplenomegaly External Female Exam: normal external appea (more content not included)... Normal [facility] ED Prov Noteon 07-18-2024 ED Prov Note ED PROVIDER NOTE [facility] EMERGENCY [facility]PARTMENT NAME: Ember Carlson AGE: 49 y.o. : 1975 VISIT DATE: 07/18/2024 CSN: [id number] PCP: Julio Cesar Holguin CNP Chief Complaint Patient presents with Dizziness 49-year-old female patient presents ER for evaluation of episodic dizziness. Symptoms have been waxing waning, worse with changing positions relieved with sitting still. No associated dysarthria dysphagia or diplopia. No focal weaknesses History reviewed. No pertinent past medical history. Past Surgical History: Procedure Laterality Date HYSTERECTOMY (CERVIX REMAINS) Family History Problem Relation Age of Onset Melanoma Neg Hx Social History Socioeconomic History Marital status: Tobacco Use Smoking status: Every Day Current packs/day: 2.00 Types: Cigarettes Smokeless tobacco: Never Previous Medications Medication Sig [DISCONTINUED] NUVIGIL 250 mg tablet TAKE 1 TABLET BY MOUTH EVERY DAY [DISCONTINUED] omeprazole (PRILOSEC) 20 MG capsule TAKE ONE CAPSULE BY MOUTH TWICE A DAY Allergies Allergen Reactions Codeine Sulfa (Sulfonamide Antibiotics) Review of Systems All other systems reviewed and are negative. Patient Vitals for the past 24 hrs: BP Temp Pulse Resp SpO2 07/18/24 0514 113/79 97.7 degrees F (36.5 degrees C) 71 16 98 % Physical Exam Vitals and nursing note reviewed. Constitutional: Appearance: Normal appearance. HENT: Head: Normocephalic and atraumatic. Right Ear: External ear normal. Left Ear: External ear normal. Nose: Nose normal. Mouth/Throat: Mouth: Mucous membranes are moist. Pharynx: Oropharynx is clear. Eyes: Extraocular Movements: Extraocular movements intact. Conjunctiva/sclera: Conjunctivae normal. Pupils: Pupils are equal, round, and reactive to light. Cardiovascular: Rate and Rhythm: Normal rate and regular rhythm. Musculoskeletal: General: Normal range of motion. Cervical back: Normal range of motion and neck supple. Pulmonary: Effort: Pulmonary effort is normal. Breath sounds: Normal breath sounds. Abdominal: General: Abdomen is flat. Bowel sounds are normal. Palpations: Abdomen is soft. Neurological: General: No focal deficit present. Mental Status: She is alert and oriented to person, place, and time. Mental status is at baseline. Psychiatric: Mood and Affect: Mood normal. Thought Content: Thought content normal. NIH Scale: LOC: 0 - alert LOC Questions: 0 - answers both correctly LOC Commands: 0 - performs both correctly Best gaze: 0 - normal Vision: 0 - no visual loss Facial Palsy: 0 - normal Left arm: 0 - no drift Right arm; 0 - no drift Left le - no drift Right le - no drift Limb ataxia: 0 - absent Sensation: 0 - normal Best language: 0 - no aphasia Dysarthria: 0 - normal articulation Extinction and inattention: 0 - no neglect Stroke Scale: 0 . Laboratory & Radiographic Imaging (if done): Results for orders placed or performed during the hospital encounter of 07/18/24 POC CBC and Differential Result Value Ref Range WBC 4.68 4.50 - 11.00 K/mcL RBC 5.00 4.00 - 5.20 M/mcL Hemoglobin 14.7 12.0 - 16.0 g/dL Hematocrit 44.1 36.0 - 46.0 % MCV 88.2 80.0 - 100.0 fL MCH 29.4 26.0 - 34.0 pg MCHC 33.3 31.0 - 37.0 g/dL RDW - CV 13.2 11.6 - 14.8 % Platelets 181 150 - 400 K/mcL MPV 10.3 9.4 - 12.4 fL Neutrophils 58.2 % Lymphocytes 26.7 % Monocytes 9.4 % Eosinophils 5.1 % Basophils 0.4 % IG Percent 0.20 % Neutrophils Abs 2.72 1.70 - 7.00 K/mcL Lymphocytes Abs 1.25 0.90 - 4.00 K/mcL Monocytes Abs 0.44 0.30 - 0.90 K/mcL Eosinophils Abs 0.24 0.00 - 0.50 K/mcL Basophils Abs 0.02 0.00 - 0.30 K/mcL IG Absolute 0.01 0.00 - 0.30 K/mcL POC Basic Metabolic Panel Result Value Ref Range Glucose 109 (H) 65 - 99 mg/dL BUN 29 (H) 8 - 25 mg/dL Creatinine 0.66 0.40 - 1.10 mg/dL GFR 108 >=60 mL/min/1.73 m2 Sodium 144 135 - 145 mmol/L Potassium 4.2 3.5 - 5.1 mmol/L Chloride 112 (H) 98 - 108 mmol/L TCO2 25 21 - 32 mmol/L Ionized Calcium 5.3 4.5 - 5.3 mg/dL No orders to display Procedures Medical Decision Making Patient presents to the ER for evaluation of episodic dizziness, and arrival to stable, appearing, no acute distress. NIH of 0. Based on History, Exam, and Findings, presentation not consistent with syncope, seizure, stroke, meningitis, symptomatic anemia (gastrointestinal bleed), Increased ICP (cerebral tumor/mass), ICH. Symptoms seem to be secondary to peripheral cause given history and exam, will discharge home with supportive measures and outpatient follow-up. Reassessment: Prior to discharge symptoms controlled, patient well appearing. Disposition: Discharge. Strict return precautions discussed w/ full understanding. Advise follow up with primary care provider within 24-48 hours. . . Clinical Impression: No diagnosis found. ED Disposition None Follow-up Info (more content not included)... Normal [facility] POC BASIC METABOLIC PANEL - ETTAFan 07-18-2024 Chloride [Moles/Vol] 112 mmol/L High 98-108 [facility] Comment on above: Order Comment: [facility] Services has implemented the eGFR calculation approach that does not have a coefficient for race that conforms to the NKF-ASN Task Force Recommendations. CO2 [Moles/Vol] 25 mmol/L Normal 21-32 [facility] Comment on above: Order Comment: [facility] has implemented the eGFR calculation approach that does not have a coefficient for race that conforms to the NKF-ASN Task Force Recommendations. Creatinine [Mass/Vol] 0.66 mg/dL Normal 0.40-1.10 [facility] Comment on above: Order Comment: [facility] Services has implemented the eGFR calculation approach that does not have a coefficient for race that conforms to the NKF-ASN Task Force Recommendations. Glucose [Mass/Vol] 109 mg/dL High 65-99 [facility] Comment on above: Order Comment: [facility] Services has implemented the eGFR calculation approach that does not have a coefficient for race that conforms to the NKF-ASN Task Force Recommendations. POC GFR 108 mL/min/1.73 m2 Normal >=60 [facility] [facility] Comment on above: Order Comment: [facility] Laboratory Services has implemented the eGFR calculation approach that does not have a coefficient for race that conforms to the NKF-ASN Task Force Recommendations. Result Comment: Syliva mated GFR was calculated using the 2020 CKD-EPI creatinine equation. POC IONIZED CALCIUM 5.3 mg/dL Normal 4.5-5.3 [facility] Comment on above: Order Comment: [facility] Laboratory Services has implemented the eGFR calculation approach that does not have a coefficient for race that conforms to the NKF-ASN Task Force Recommendations. Potassium [Moles/Vol] 4.2 mmol/L Normal 3.5-5.1 [facility] Comment on above: Order Comment: [facility] Laboratory Services has implemented the eGFR calculation approach that does not have a coefficient for race that conforms to the NKF-ASN Task Force Recommendations. Sodium [Moles/Vol] 144 mmol/L Normal 135-145 [facility] Comment on above: Order Comment: [facility] Laboratory Services has implemented the eGFR calculation approach that does not have a coefficient for race that conforms to the NKF-ASN Task Force Recommendations. Urea nitrogen [Mass/Vol] 29 mg/dL High 07-22 [facility] Comment on above: Order Comment: [facility] Laboratory Services has implemented the eGFR calculation approach that does not have a coefficient for race that conforms to the NKF-ASN Task Force Recommendations. POC CBC AND DIFFERENTIALon 0 07-18-2024 BASOPHILS ABSOLUTE COUNT 0.02 K/mcL Normal 0.00-0.30 [facility] Basophils/100 WBC (Bld) 0.4 % Normal [facility] Eosinophils (Bld) [#/Vol] 0.24 10*3/uL Normal 0.00-0.50 [facility] Eosinophils/100 WBC (Bld) 5.1 % Normal [facility] Erythrocyte distribution width (RBC) [Ratio] 13.2 % Normal 11.6-14.8 [facility] Hematocrit (Bld) [Volume fraction] 44.1 % Normal 36.0-46.0 [facility] Hemoglobin (Bld) [Mass/Vol] 14.7 g/dL Normal 12.0-16.0 [facility] IG ABSOLUTE 0.01 K/mcL Normal 0.00-0.30 [facility] IG PERCENT 0.20 % Normal [facility] Comment on above: Result Comment: The IG parameter is the percentage of metamyelocytes, myelocytes and promyelocytes. An immature granulocyte count (IG) of 1% or more suggests the possibility of infection, an IG count of 3% is very likely related to an infection. Lymphocytes (Bld) [#/Vol] 1.25 10*3/uL Normal 0.90-4.00 [facility] Lymphocytes/100 WBC (Bld) 26.7 % Normal [facility] MCH (RBC) [Entitic mass] 29.4 pg Normal 26.0-34.0 [facility] MCV (RBC) [Entitic vol] 88.2 fL Normal 80.0-100.0 [facility] MEAN CORPUSCULAR HEMOGLOBIN CONC 33.3 g/dL Normal 31.0-37.0 [facility] Monocytes (Bld) [#/Vol] 0.44 10*3/uL Normal 0.30-0.90 [facility] Monocytes/100 WBC (Bld) 9.4 % Normal [facility] NEUTROPHILS ABSOLUTE COUNT 2.72 K/mcL Normal 1.70-7.00 [facility] Neutrophils/100 WBC (Bld) 58.2 % Normal [facility] Platelet mean volume (Bld) [Entitic vol] 10.3 fL Normal 9.4-12.4 [facility] Platelets (Bld) [#/Vol] 181 10*3/uL Normal 150-400 [facility] RBC (Bld) [#/Vol] 5.00 10*6/uL Normal 4.00-5.20 [facility] WBC (Bld) [#/Vol] 4.68 10*3/uL Normal 4.50-11.00 [facility] SCRN MAMM (CAD)W/CHRISTOPHER BILATo n 06-25-2024 SCRN MAMM (CAD)W/CHRISTOPHER BILAT [facility] Imaging Services [address] [id number] SCRN MAMM (CAD)W/CHRISTOPHER BILAT MR#: [id number] Acct: [id number] Name: EMBER CARRION Rep #: [id number] : 1975 F 49 From: Randolph figueroa MD PCP: Dr. Neto Harris MD Status: [facility] Study: SCRN MAMM (CAD)W/CHRISTOPHER BILAT Date of Exam: 05/29 08/21 Exam# [id number] Ordering Dr: Ladonna Grant [facility] [id number] MAMMOGRAPHY - BILATERAL SCREENING REASON FOR EXAM: Female, 49 years old. Routine annual screening examination. PERTINENT HISTORY: Non-contributory. TECHNIQUE: Digital bilateral breast christopher (3D mammographic acquisition) in the CC and MLO projections. 2-D mediolateral oblique (MLO) and craniocaudad (CC) views of both breasts were obtained. CAD: Full Field Digital Mammography with Computer Added Detection was performed. COMPARISON: Comparison is made with prior study dated June 23, 2023 and May 28, 2022. FINDINGS: Breast Composition: The breasts are heterogeneously dense, which may obscure small masses. There are no dominant masses or suspicious calcifications. Stable 3.2 mm x 5.8 mm well-defined nodule in the anterior inferior central aspect of the right breast. Prior ultrasound demonstrated this to be a cyst. No other significant abnormalities are identified. There has been no significant change since the prior study. BI/SCRN MAMM (CAD)W/CHRISTOPHER BILAT IMPRESSION: Stable bilateral screening mammogram. Yearly follow-up mammogram recommended. (A) ASSESSMENT CATEGORY: BIRADS Category 2: Benign. A letter regarding these results will be sent to the patient by the facility within 30 days. Approximately 10% of breast cancers are not detected by mammography. A normal mammogram should not delay biopsy of a clinically suspicious abnormality. [id number] Electronically Signed: Randolph Villalobos MD at 15:00 EDT , CC: ROSIE Grant; Dr. Neto Harris MD [place]: Signed Normal [facility] Absolute lymphocyte countOrd ered By: Ladonna Grant on 12-13-2022 Lymphocytes Auto (Unsp spec) [#/Vol] 1.32 10*3/uL 0.83-4.51 [facility] Basophil percentageOrdered B y: Ladonna Grant on 12-13-2022 Basophils/100 WBC (Bld) 1.1 % 0-1 [facility] Bilirubin [Mass/Vol] 0.80 mg/dL 0.20-1.00 [facility] Comment on above: For patients on eltr ombopag therapy, use of Dimension [place] TBIL is not recommended. Chloride [Moles/Vol] 107 mmol/L 98-107 [facility] Cholesterol [Mass/Vol] 134 mg/dL <200 [facility] Comment on above: <200 mg/dL Desirable 200-240 mg/dL Borderline >240 mg/dL High Risk Eosinophils/100 WBC (Bld) 3.3 % 0-5 [facility] Glucose [Mass/Vol] 96 mg/dL 74-106 [facility] Neutrophils (Bld) [#/Vol] 1.8 10*3/uL 2.0-7.7 [facility] Neutrophils/100 WBC (Bld) 49.1 % 47-70 [facility] Potassium [Moles/Vol] 3.7 mmol/L 3.5-5.1 [facility] Protein [Mass/Vol] 7.5 g/dL 6.4-8.2 [facility] Sodium [Moles/Vol] 142 mmol/L 136-145 [facility] WBC (Bld) [#/Vol] 3.6 10*3/uL 4.4-11.0 [facility] Blood erythrocytes count (nu mber/volume)Ordered By: Ladonna Grant on 12-13-2022 RBC (Bld) [#/Vol] 4.76 10*6/uL 4.2-5.4 [facility] Blood hemoglobin measurement (mass/volume)Ordered By: Ladonna Grant on 12-13-2022 Hemoglobin (Bld) [Mass/Vol] 14.2 g/dL 12.0-15.0 [facility] Blood lymphocytes/100 leukoc ytesOrdered By: Ladonna Grant on 12-13-2022 Lymphocytes/100 WBC (Bld) 36.5 % 19-41 [facility] Blood monocytes/100 leukocyt esOrdered By: Ladonna Grant on 12-13-2022 Monocytes/100 WBC (Bld) 9.7 % 0-10 [facility] Blood platelet mean volumeOr dered By: Ladonna Grant on 12-13-2022 Platelet mean volume (Bld) [Entitic vol] 10.5 fL 6.2-12.0 [facility] Determination of erythrocyte mean corpuscular volume (MCV)Ordered By: Ladonna Grant on 12-13-2022 MCV (RBC) [Entitic vol] 90.1 fL 81-99 [facility] Hematocrit Auto (Bld) [Volum e fraction]Ordered By: Ladonna Grant on 12-13-2022 Hematocrit (Bld) [Volume fraction] 42.9 % 37-47 [facility] Laboratory - Chemistry and C hemistry - challengeOrdered By: Ladonna Grant on 12-13-2022 ALP [Catalytic activity/Vol] 72 U/L 45-117 [facility] ALT [Catalytic activity/Vol] 23 U/L 13-56 [facility] CO2 [Moles/Vol] 27.0 mmol/L 21.0-32.0 [facility] Globulin (S) [Mass/Vol] 3.5 g/dL 2.2-4.2 [facility] Urea nitrogen/Creatinine [Mass ratio] 16.8 mg/mg 10-20 [facility] Laboratory - Hematology and Cell countsOrdered By: Ladonna Grant on 12-13-2022 Erythrocyte distribution width (RBC) [Entitic vol] 42.1 fL 35.1-43.9 [facility] Erythrocyte distribution width (RBC) [Ratio] 12.7 % 11.6-14.6 [facility] Immature granulocytes/100 WBC (Bld) 0.300 % 0.0-0.9 [facility] Comment on above: IG% - Immature Granu locytes (promyelocytes, myelocytes and metamyelocytes) > 1% indicates that a LEFT SHIFT is Present. MCH (RBC) [Entitic mass] 29.8 pg 27.0-32.0 [facility] Nucleated RBC/100 WBC (Bld) [Ratio] 0 % 0-5 [facility] MCHC Auto (RBC) [Mass/Vol]Or dered By: Ladonna Grant on 12-13-2022 MCHC (RBC) [Mass/Vol] 33.1 g/dL 32-36 [facility] No Panel InformationOrdered By: Ladonna Grant on 12-13-2022 Estimated GFR (MDRD) Amer 87 mL/min >60 [facility] Comment on above: GFR Calc Estimated GFR (MDRD) Non-Af Amer 72 mL/min >60 [facility] Comment on above: Non- GFR Calc Vitamin D 25-Hydroxy 25.2 ng/mL [facility] Comment on above: Vitamin D 25(OH) Sta tus Range Deficiency <20 ng/mL (50nmol/L) Insufficiency 20 - 30 ng/mL (50 - 75 nmol/L) Sufficiency 30 - 100 ng/mL (75 - 250 nmol/L) Toxicity >100 ng/mL (>250 nmol/L) Platelets bldOrdered By: Kiara Grant on 12-13-2022 Platelets (Bld) [#/Vol] 187 10*3/uL 150-450 [facility] Serum or plasma albumin melanie urement (mass/volume)Ordered By: Ladonna Grant on 12-13-2022 Albumin [Mass/Vol] 4.0 g/dL 3.2-5.0 [facility] Serum or plasma albumin/glob ulin mass ratioOrdered By: Ladonna Grant on 12-13-2022 Albumin/Globulin [Mass ratio] 1.1 {ratio} 0.9-2.4 [facility] Serum or plasma calcium melanie urement (mass/volume)Ordered By: Ladonna Grant on 12-13-2022 Calcium [Mass/Vol] 9.8 mg/dL 8.5-10.1 [facility] Serum or plasma creatinine m easurement (mass/volume)Ordered By: Ladonna Grant on 12-13-2022 Creatinine [Mass/Vol] 0.89 mg/dL 0.55-1.02 [facility] Comment on above: The validity of the calculated GFR & GFRAA in patients over 70 years has not been determined. Clinical correlation is essential. Serum or plasma urea nitroge n measurement (mass/volume)Ordered By: Ladonna Grant on 12-13-2022 Urea nitrogen [Mass/Vol] 15 mg/dL 7-18 [facility] Thin prep Papanicolaou smear with manual screeningOrdered By: Ladonna Grant on 12-13-2022 Thin prep Papanicolaou smear with manual screening 11 U/L 15-37 [facility] Thin prep Papanicolaou smear with manual screening 8 5-15 [facility] Whole blood hemoglobin A1c/t otal hemoglobin ratio (mass fraction)Ordered By: Ladonna Grant on 12-13-2022 HbA1c (Bld) [Mass fraction] 4.7 % 3.8-5.6 [facility] Comment on above: Normal < 5.7 % Predi abetic 5.7 - 6.4 % Diabetic >or= 6.5 % Please note range changes. Provider Note - ED v3on 10-2 Provider Note - ED v3 Provider Note: Chart Review: HISTORY OF PRESENTING ILLNESS EMBER is a 47 year old Female and was seen by me at 25-Sep-2022 09:15. The historian is the patient. Triage Information: Most recent Vital Sign Value Date PAST MEDICAL HISTORY ALLERGIES/INTOLERANCE S: No Known Allergies HEALTH HISTORY: Has hyperlipidemia; no other known health issues. Family history: no pertinent history. Social history: non-smoker. Currently employed. OUTPATIENT MEDICATIONS: Home Medications Review Status for Reconciliation: Complete Med Status: Patient Currently Takes Medications Drug Name: atorvastatin Instructions: null SIGNIFICANT EVENTS: History of partial hysterectomy; no other known past surgical history or known significant events. FINANCIAL SALES ASSISTANT: Is : no Is : no CRITICAL CARE VITAL SIGNS: T PRBP SpO2O2(LPM) %FiO2 Method 25-Sep-2022 09:05:[id number]/ 73 98 MDM MDM/ED COURSE: This note was generated with voice recognition software and may contain errors including spelling, grammar, syntax, and misrecognization of what was dictated. CHIEF COMPLAINT R ear fullness/discomfort HISTORY OF PRESENT ILLNESS Patient presents today for evaluation of R ear fullness/discomfort - can't get it to pop. Reports had similar sxs ~1.5 years ago; had COVID 1-2 months ago and was started on Amoxicillin afterwards d/t her ear symptoms - sxs improved but did not have full relief. Went back to the same doctor and was rx'd Doxycycline, and sxs resolved, but they have now restarted again. Reports it hurts her ear when she swallows. Has mild PND; she denies any known trauma to ear or recent swimming. No sore throat, current nasal congestion, cough, change in appetite, fevers, body aches, fatigue, headaches, dizziness, nausea/vomiting, or constipation/diarrhea . She took Claritin and Flonase in the past - is unsure if it helped; has not tried any other OTC medications or conservative measures for her symptoms. REVIEW OF SYSTEMS 10 systems reviewed negative with exception of history of present illness listed above PHYSICAL EXAMINATION General: Pleasant female, in no acute distress, alert and oriented. Sitting comfortably on exam table. Eyes: Pupils are equal, round and reactive. Bilat conjunctiva clear; no exudate to eyes noted. HENT: Normocephalic. Bilateral TMs with clear fluid bubbles, but not retracted or bulging, and no erythema. Bilateral ear canals unremarkable. No otorrhea. Nasal mucosa mildly injected and with trace edema; no sinus tenderness; no notable audible nasal congestion. Mucous membranes moist. No oral lesions; posterior pharynx unremarkable. Able to swallow/manage oral secretions without difficulty. Neck: Supple; no palpable lymphadenopathy. Respiratory: Respirations are easy and non-labored, with normal rate. Symmetrical chest wall expansion. Lungs are clear to auscultation - no wheezing, rhonchi, or rales. Breath sounds equal. No cough noted during visit. Cardiovascular: Normal rate, Regular rhythm. Normal S1-S2. No m/r/g. Musculoskeletal: Grossly normal for age. Integumentary: [place], warm, dry, and Intact. Normal skin turgor; no rashes appreciated. Neurologic: Alert, Oriented, Sensory and motor function grossly intact. No instability with position changes; gait unremarkable. Cognition and Speech: Oriented; Speech clear and coherent Psychiatric: Cooperative, Appropriate mood & affect. MEDICAL DECISION MAKING Course: Worsening; stable. Impression/Plan: Symptoms/exam consistent with eustachian tube dysfunction. Will begin conservative measures at this point; no indication for antibiotic use right now. Discussed strategies for management of symptoms-saline nasal spray, gentle auto insufflation, chewing gum, yawning, etc. OTC antihistamines/decong estants may also be helpful. Reviewed expectations for resolution of infection and improvement in symptoms (can take 4 to 6 weeks for symptoms to resolve completely), and encouraged to follow-up with PCP or ENT if symptoms not improving over the 2 weeks, or to seek care sooner if they worsen. Patient seems satisfied and agrees with plan of care; questions were encouraged and answered. Problem: R ear discomfort/fullness Data reviewed/analyzed: No lab work, imaging, or tests outside of physical exam done today; no previous documents reviewed for today's visit. Risk: Low risk of morbidity/mortality. Problems addressed: eustachian tube dysfunction Education/patient instructions: See above. Contact info for local ENT provided. DISPOSITION Diagnosis/Annotation: ED Dx Name:Eustachian tube dysfunction Code:H69.80 Disposition: discharged Type: home CONSULT CRITICAL CARE TIME Is this a critically ill patient: no Electronic Signatures: Kerry Hardy (CATHODIC PROTECTION TECHNICIAN-STENCIL PRINTER) (Signed 26-Sep-2022 08:52) Authored: HPI, PMH, Results/Vital (more content not included)... Normal [facility] Office Visiton 09-29-2021 Follow-up visit Diagnoses/Problems Current every day use of combustion-free vaporization device Chest discomfort (786.59) (R07.89) Coronary artery disease, non-occlusive (414.00) (I25.10) Hiatal hernia (553.3) (K44.9) Orders Chest discomfort Electrocardiogram 12 Lead; Status:Active; Requested for:29Sep2021; Coronary artery disease, non-occlusive Start: Aspirin 81 MG Oral Tablet Chewable; Take 1 tablet daily Start: Atorvastatin Calcium 20 MG Oral Tablet; TAKE 1 TABLET AT BEDTIME Patient Discussion/Summary Will get ECG. If any chest symptoms she will need stress test or ER evaluation. Begin baby aspirin and atorvastatin daily. Avoid laying down after meals. Chief Complaint Pt presents for CT CACS f/u History of Present IllnessShe presents today for follow up of CT cardiac score test. Her score was 258, which puts her in the intermediate category. She denies chest pain or pressure with activity. She does get short of breath and fatigue with some activity. With stretching she will get some chest discomfort and then fluttering in her chest. She denies any heart burn or food getting stuck sensation. She also has a hiatal hernia. Her mom is currently going to have a stent placed, but no other family cardiac history. She has had elevated cholesterol. I recommended aggressive risk factor reduction, cholesterol medication and baby aspirin as well as smoking cessation. Exercise-she does 20 minutes on a treadmill every day at a speed of 3.6. She tolerates it well. As well as heart healthy diet. Review of Systems General: Negative except HPI Cardiovascular: Negative except HPI Respiratory: Negative except HPI Gastrointestinal: Negative except HPI : Negative except HPI Neurological: Negative except HPI Active Problems Adjustment insomnia (307.41) (F51.02) Mild hyperlipidemia (272.4) (E78.5) Narcolepsy (347.00) (G47.419) Nicotine abuse (305.1) (Z72.0) Night sweats (780.8) (R61) Scapular dysfunction (733.90) (M89.9) Screening for heart disease (V81.2) (Z13.6) Past Medical History History of screening mammography (V15.89) (Z92.89) [facility] Surgical History History of Partial hysterectomy History of Tubal ligation Family History Family history of malignant neoplasm (V16.9) (Z80.9) Social History Caffeine use (V49.89) (Z78.9) Current every day use of combustion-free vaporization device Does not have living will No advance directives (V49.89) (Z78.9) No alcohol use Allergies codeine Recorded By: Pricilla Singleton; 02/24/2021 8:31:11 AM [facility] Recorded By: Pricilla Singleton; 02/24/2021 8:31:11 AM Vitals Vital Signs Recorded: 29Sep2021 03:32PM Qeeixqjgzxs48.3 F Heart Rate89 Nadvlfcd84, LUE Ovnabojcd47, LUE Height5 ft 6 in Kfbaed443 lb 9 oz BMI Bnqirzsqec12.59 kg/m2 BSA Calculated1.65 Tobacco Useb) No Fall Screeninga) No falls within the last year O2 Rmwoirhemk96 Physical Exam General: Well appearing, in no distress Respiratory: Able to speak in full sentences, nonlabored breathing, no cough Neuro: Alert and oriented x 3 Psych: Appropriate affect and mood Signatures Electronically signed by : JESSICA Moody; Sep 29 2021 4:12PM EST (Author) Normal [facility] Tobacco Screening.on 021 Fall risk assessment a) No falls within the last year [facility] Work Phone: Tobacco use status [facility] b) No M [facility] Work Phone: CT Cardiac Scoringon 021 CT Cardiac Scoring Normal -[facility] Work Phone: Office Visiton 09-08-2021 Follow-up visit Diagnoses/Problems Screening for heart disease (V81.2) (Z13.6) Mild hyperlipidemia (272.4) (E78.5) Nicotine abuse (305.1) (Z72.0) Orders Screening for heart disease CT Cardiac Scoring; Status:Active; Requested for:22Sep2021; Patient taking Metformin or Derivatives? : No Radiologist to Determine Optimal Study : Y What are the patient's signs and symptoms? : screening for heart disease Patient Discussion/Summary She is agreeable to taking a statin we will do the CT cardiac score test to see how aggressive of treatment we need I still recommended that she continue a healthy lifestyle of course smoking cessation. Chief Complaint Pt presents with concerns regarding elevated cholesterol levels for the past couple of years. History of Present IllnessShe presents today to discuss her elevated cholesterol levels. 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 She does not have any family history of early CAD. She is a smoker. Her weight is under good control she has a normal blood pressure. She has started walking for exercise. We have discussed on previous occasions about a healthy diet and low-cholesterol diet and she has not changed anything so far. We will get a CT cardiac score test and determine medication treatment from that point. Review of Systems General: Negative except HPI Cardiovascular: Negative except HPI Respiratory: Negative except HPI Neurological: Negative except HPI Active Problems Adjustment insomnia (307.41) (F51.02) Mild hyperlipidemia (272.4) (E78.5) Narcolepsy (347.00) (G47.419) Nicotine abuse (305.1) (Z72.0) Night sweats (780.8) (R61) Scapular dysfunction (733.90) (M89.9) Past Medical History History of screening mammography (V15.89) (Z92.89) [facility] Surgical History History of Partial hysterectomy History of Tubal ligation Family History Family history of malignant neoplasm (V16.9) (Z80.9) Social History Caffeine use (V49.89) (Z78.9) Current every day use of combustion-free vaporization device Does not have living will No advance directives (V49.89) (Z78.9) No alcohol use Allergies codeine Recorded By: Pricilla Singleton; 02/24/2021 8:31:11 AM [facility] Recorded By: Pricilla Singleton; 02/24/2021 8:31:11 AM Vitals Vital Signs Recorded: 08Sep2021 03:26PM Wyxlnjvhmpy94.4 F Heart Rate72 Xdohdhea208, LUE Kqmahgodi52, LUE Height5 ft 6 in Jsoqdo450 lb 4 oz BMI Fxvqdbekwr73.05 kg/m2 BSA Calculated1.63 Tobacco Usea) Yes Fall Screeninga) No falls within the last year O2 Pqrcgwbvly42 Physical Exam General: Well appearing, in no distress Respiratory: Able to speak in full sentences, nonlabored breathing, no cough Neuro: Alert and oriented x 3 Psych: Appropriate affect and mood Signatures Electronically signed by : JESSICA Moody; Sep 08 2021 6:41PM EST (Author) Normal [facility] Tobacco Screening.on Fall risk assessment a) No falls within the last year [facility] and Work Phone: Tobacco use status [facility] a) Yes [facility] and Work Phone: 19-49 Yearson 02-24-2021 19-49 Years Diagnoses/Problems Assessed Nicotine abuse (305.1) (Z72.0) Night sweats (780.8) (R61) Adjustment insomnia (307.41) (F51.02) Mild hyperlipidemia (272.4) (E78.5) Orders Mild hyperlipidemia Lipid Panel; Status:Active; Requested for:24Feb2021; Perform:Lab Services - Lab To Draw (Blood Test); Due:25May2021;Ordered ; For:Mild hyperlipidemia; Ordered By:Julio Cesar Holguin; Nicotine abuse Start: Chantix Continuing Month Porfirio 1 MG Oral Tablet; TAKE DIRECTED PER PACKAGE INSTRUCTIONS Rx By: Julio Cesar Holguin; Dispense: 0 Days ; #:1 X 56 Tablet Pack; Refill: 1; For: Nicotine abuse; JOEL = N; Verified Transmission to [facility] [place], [place] [address]Station [facility] ; Last Updated By: [facility]; 02/24/2021 4:31:03 PM Start: Chantix Starting Month Porfirio 0.5 MG X 11 AND 1 MG X 42 Oral Tablet; TAKE DIRECTED PER PACKAGE INSTRUCTIONS Rx By: Julio Cesar Holguin; Dispense: 0 Days ; #:1 X 53 Tablet Pack; Refill: 0; For: Nicotine abuse; JOEL = N; Verified Transmission to [facility] [place] [address]; Last Updated By: Pablo Martinez; 02/24/2021 4:31:00 PM Night sweats Follicle Stimulating Hormone, Serum; Status:Active; Requested for:24Feb2021; Perform:Lab Services - Lab To Draw (Blood Test); Due:25May2021;Ordered ; For:Night sweats; Ordered By:Julio Cesar Holguin; Patient Discussion/Summary Hyperlipidemia: labs reviewed with pt. Pt instructed to reduce fatty meat intake and to choose lean meats. Will recheck in 6 months. Nicotine abuse: chantix starter pack and continuing month pack prescribed. Instructed to start Chantix 2 weeks before set quit date. Night sweats: UA in office neg. Will check FSH if symptoms persist. Adjustment insomnia: advised pt to try OTC sleep aid such as melatonin d/t starting chantix. Discussed CT cardiac test with pt- pt informed she has to be 24 hour nicotine and caffeine free. Pt to call for order. Chief Complaint wellness visit with labs. Discuss menopause. Having hot flashes, not sleeping waking up about every hour History of Present IllnessThe last health maintenance visit was 12+ month(s) ago. Concerns raised today include: menopausal sx. The patient's health since the last visit is described as fair. She has regular dental visits. She complains of vision problems. Vision care includes wearing glasses and an eye examination within the last year. Lifestyle: She consumes a diverse and healthy diet. She does not exercise regularly. She uses tobacco. She denies alcohol use. vape 2-3 ppd. Reproductive health: she reports abnormal menses. Menstrual history: Menstrual Problems: partial hysterectomy. menopause- hot flashes and sweating, difficulty sleeping. Cervical cancer screening: cancer screening reviewed and current . patient has a history of an abnormal pap smear. Breast cancer screening: cancer screening reviewed and current . In 2019. Metabolic screening: lipid profile performed within the past five years. Pt presents for wellness exam for work. She complains of menopause, hot flashes, sweating, and difficulty sleeping x 1.5 months. She wakes every hour throughout the night. She had a partial hysterectomy last year. She currently vapes and wants to discuss possibly starting Chantix to quit. She has been on a keto diet for 1-1.5 years. Her recent labs show an increase in total cholesterol and LDL. Review of Systems Constitutional: feeling tired and night sweats. Cardiovascular: no chest pain. Respiratory: no cough. Gastrointestinal: no abdominal pain and no nausea. Psychiatric: sleep disturbances. Endocrine: heat/cold intolerance. Active Problems Problems Narcolepsy (347.00) (G47.419) Scapular dysfunction (733.90) (M89.9) Past Medical History Problems History of screening mammography (V15.89) (Z92.89) [facility] Surgical History Problems History of Partial hysterectomy History of Tubal ligation Family History Grandparent Family history of malignant neoplasm (V16.9) (Z80.9) Social History Problems Caffeine use (V49.89) (Z78.9) Current every day use of combustion-free vaporization device Does not have living will No alcohol use Allergies Medication codeine Recorded By: Pricilla Singleton; 02/24/2021 8:31:11 AM Sulfa Drugs Recorded By: Pricilla Singleton; 02/24/2021 8:31:11 AM Vitals Vital Signs Recorded: 24Feb2021 03:57PM Peizzhkccur72 F Heart Rate68 Trmewnla64 Teasnootl50 Height5 ft 1.61 in Qlkyhg555 lb 6 oz BMI Nflgxfgcca44.11 BSA Calculated1.53 Tobacco Usea) Yes Physical Exam Constitutional: Alert and in no acute distress. Well developed, well nourished. Neck: No neck mass was observed. Supple. Thyroid not enlarged and there were no palpable thyroid nodules. Cardiovascular: Heart rate and rhythm were normal, normal S1 and S2, no gallops, no murmurs and no pericardial rub. Pulmonary: No respiratory distress. Clear bilateral breath sounds. Psychiatric: Judgment and insight: Intact. Alert and oriented x 3. Recent and remote memory: N (more content not included)... Normal [facility] Auto Diffon 08-02-2018 Basophils #/vol (Bld) 0.1 E3/mcL Normal 0.0-0.2 [facility] Comment on above: Order Comment: Order Added by Discern Expert. Performed By: #### 2 [id number] #### MAYANK RemHemo [address] [place] [address] Basophils/100 WBC (Bld) 0.7 % Normal 0.0-2.0 [facility] Comment on above: Order Comment: Order Added by Discern Expert. Performed By: #### 2 [id number] #### MAYANK RemHemo [address] [place] [address] Eos Absolute 0.2 E3/mcL Normal 0.0-0.7 [facility] Comment on above: Order Comment: Order Added by Discern Expert. Performed By: #### 2 [id number] #### MAYANK RemHemo [address] [place] [address] Eosinophils/100 WBC (Bld) 2.0 % Normal 0.0-11.0 [facility] Comment on above: Order Comment: Order Added by Discern Expert. Performed By: #### 2 [id number] #### MAYANK RemHemo [address] [place] [address] Lymphocytes #/vol (Bld) 2.3 E3/mcL Normal 1.2-3.4 [facility] Comment on above: Order Comment: Order Added by Discern Expert. Performed By: #### 2 [id number] #### MAYANK RemHemo [address] [place] [address] Lymphocytes/100 WBC (Bld) 27.5 % Normal 20.0-55.0 [facility] Comment on above: Order Comment: Order Added by Discern Expert. Performed By: #### 2 [id number] #### MAYANK RemHemo [address] [place] [address] [place] Absolute 0.7 E3/mcL Normal 0.0-0.7 [facility] Comment on above: Order Comment: Order Added by Discern Expert. Performed By: #### 2 [id number] #### MAYANK RemHemo [address] [place] [address] Monocytes/100 WBC (Bld) 8.4 % Normal 0.0-10.0 [facility] Comment on above: Order Comment: Order Added by Discern Expert. Performed By: #### 2 [id number] #### MAYANK RemHemo [address] [place] [address] Neutro Absolute 5.1 E3/mcL Normal 1.4-6.5 [facility] Comment on above: Order Comment: Order Added by Discern Expert. Performed By: #### 2 [id number] #### MAYANK RemHemo [address] [place] [address] Neutro Auto 61.4 % Normal 37.0-75.0 [facility] Comment on above: Order Comment: Order Added by Discern Expert. Performed By: #### 2 [id number] #### MAYANK BalderramaHemo [address] [place] [address] CBC w/ Auto Diffon 8 Erythrocyte distribution width Ratio (RBC) 16.9 % High 11.5-14.5 [facility] Comment on above: Performed By: #### 2 [id number] #### MAYANK BalderramaHemo [address] [place] [address] Hematocrit Volume Fraction (Bld) 37.0 % Normal 36.0-48.0 [facility] Comment on above: Performed By: #### 2 [id number] #### MAYANK BalderramaHemo [address] [place] [address] Hemoglobin mass conc (Bld) 12.0 g/dL Normal 12.0-16.0 [facility] Comment on above: Performed By: #### 2 [id number] #### MAYANK BalderramaHemo [address] [place] [address] MCH Entitic mass (RBC) 25.9 pg Low 27.0-31.0 [facility] Comment on above: Performed By: #### 2 [id number] #### MAYANK RemHemo [address] [place] [address] MCHC mass conc (RBC) 32.5 g/dL Low 33.0-37.0 [facility] Comment on above: Performed By: #### 2 [id number] #### MAYANK RemHemo [address] [place] [address] MCV Entitic volume (RBC) 79.7 fL Normal 78.0-100.0 [facility] Comment on above: Performed By: #### 2 [id number] #### MAYANK RemHemo [address] [place] [address] Platelet mean volume Entitic volume (Bld) 9.2 fL Normal 7.4-11.0 [facility] Comment on above: Performed By: #### 2 100537 #### MAYANK RemHemo [address] [place] [address] Platelets #/vol (Bld) 245 E3/mcL Normal 130-400 [facility] Comment on above: Performed By: #### 2 [id number] #### MAYANK RemHemo [address] [place] [address] RBC #/vol (Bld) 4.64 E6/mcL Normal 3.90-5.40 [facility] Comment on above: Performed By: #### 2 [id number] #### MAYANK RemHemo [address] [place] [address] WBC #/vol (Bld) 8.4 E3/mcL Normal 3.6-11.0 [facility] Comment on above: Performed By: #### 2 190629 #### MAYANK RemHemo [address] [place] [address] CMPon 08-02-2018 Albumin mass conc 3.7 g/dL Normal 3.2-5.0 [facility] Comment on above: Performed By: #### 2 118250 #### MAYANK RemChem [address] [place] [address] Albumin/Globulin mass ratio 1.3 {ratio} Normal 1.1-1.9 [facility] Comment on above: Performed By: #### 2 [id number] #### MAYANK RemChem [address] [place] [address] Alk Phos 68 Int._Unit/L Normal 42-121 [facility] Comment on above: Performed By: #### 2 [id number] #### MAYANK RemChem [address] [place] [address] ALT enzyme act/vol 12 Int._Unit/L Normal 10-40 [facility] Comment on above: Performed By: #### 2 [id number] #### MAYANK [address] [address] AST enzyme act/vol 14 Int._Unit/L Normal 10-42 [facility] Comment on above: Performed By: #### 2 [id number] #### MAYANK BalderramaChem [address] [place] [address] Bili Total 0.4 mg/dL Normal 0.2-1.0 [facility] Comment on above: Performed By: #### 2 499388 #### MAYANK BalderramaChem [facility] [place] [address] Creatinine mass conc 0.8 mg/dL Normal 0.6-1.3 [facility] Comment on above: Performed By: #### 2 593904 #### MAYANKCarlita Balderrama[address] [address] Globulin mass conc (S) 2.9 g/dL Normal 2.0-4.0 [facility] Comment on above: Performed By: #### 2 [id number] #### MAYANK Balderrama[address] [address] Protein mass conc 6.6 g/dL Normal 6.4-8.3 [facility] Comment on above: Performed By: #### 2 [id number] #### MAYANK BalderramaChem [address] [place] [address] Urea nitrogen mass conc 10 mg/dL Normal 7-18 [facility] Comment on above: Performed By: #### 2 [id number] #### MAYANKCarlita BalderramaTakeCare [address] [place] [address] Urea nitrogen/Creatinine mass ratio 12.5 ratio Normal 5.4-30.0 [facility] Comment on above: Performed By: #### 2 [id number] #### MAYANK RemChem [address] [place] [address] Calcium mass conc 9.2 mg/dL Normal 8.4-10.2 [facility] Comment on above: Performed By: #### 2 [id number] #### MAYANK BalderramaChem [address] [place] [address] Chloride molar conc 106 mmol/L Normal 98-107 [facility] Comment on above: Performed By: #### 2 832377 #### MAYANK RemChem [address] [place] [address] CO2 molar conc 24.5 mmol/L Normal 24.0-30.0 [facility] Comment on above: Performed By: #### 2 726159 #### MAYANK BalderramaChem [address] [place] [address] Glucose mass conc 108 mg/dL High 70-99 [facility] Comment on above: Performed By: #### 2 107384 #### MAYANK RemChem [address] [place] [address] Potassium molar conc 3.5 mmol/L Normal 3.5-5.1 [facility] Comment on above: Performed By: #### 2 795769 #### MAYANK BalderramaChem [address] [place] [address] Sodium molar conc 139 mmol/L Normal 136-145 [facility] Comment on above: Performed By: #### 2 [id number] #### MAYANK Krueger [facility] [place] [address] CT Abdomen/Pelvis w/ Contras ton 08-02-2018 CT Abdomen/Pelvis w/ Contrast Exam Date/Time: 08/02/2018 00:31 EDT Reason for Exam: RLQ pain;Pain Report STUDY: CT Abdomen/Pelvis w/ Contrast; 08/02/2018 12:31 am INDICATION: Pain. Right lower quadrant pain for 2 days. COMPARISON: None. ACCESSION NUMBER(S): [id number] ORDERING CLINICIAN: Dianne Monae TECHNIQUE: CT of the abdomen and pelvis was performed. Standard contiguous axial images were obtained at 3 mm slice thickness through the abdomen and pelvis. Coronal and sagittal reconstructions at 3 mm slice thickness were performed. 88 ml of contrast Omnipaque 350 were administered intravenously without immediate complication.Oral contrast was also administered. FINDINGS: LOWER CHEST: No consolidation or pleural effusion. ABDOMEN: LIVER: No focal lesion is identified. BILE DUCTS: No significant dilation. GALLBLADDER: Present. PANCREAS: No peripancreatic inflammatory changes. SPLEEN: Not enlarged. ADRENAL GLANDS: Unremarkable. Exam Date/Time: 08/02/2018 00:31 EDT Report KIDNEYS AND URETERS: Symmetrical enhancement. No hydronephrosis or hydroureter is identified. Nonobstructive 2 mm calculus at the inferior pole of the right kidney. Subcentimeter cortical low-attenuation at the right kidney is too small to be adequately characterized. PELVIS: BLADDER: Distended. REPRODUCTIVE ORGANS: The uterus is present. BOWEL: No dilated bowel loops or focal inflammatory changes. Oral contrast is seen within the stomach and small bowel loops. Stool and air noted throughout the colon. The appendix is normal. VESSELS: No abdominal aortic aneurysm. PERITONEUM/RETROPERIT ONEUM/LYMPH NODES: There is a trace amount of fluid at the right adnexa. No free air. No retroperitoneal hemorrhage. No pathologically enlarged lymph nodes are identified. BONES AND ABDOMINAL WALL: No acute osseous findings. There is a small fat containing umbilical hernia. IMPRESSION: 1. Trace amount of fluid at the right adnexa. Otherwise, no acute findings. 2. Nonobstructing right nephrolithiasis. FINAL REPORT Dictated: 08/02/2018 1:00 am Sabrina Reyes DO Signed (Electronic Signature): 08/02/2018 1:00 am Signed by: Sabrina Reyes DO Technologist: NAS Leon [facility] Lipase Levelon 08-02-2018 Lipase Lvl 20 U/L Normal 8-57 [facility] Comment on above: Performed By: #### 2 [id number] #### MAYANK RemChem [address] [place] [address] U BhCG Qlton 08-02-2018 HCG.beta subunit Qn Negative Normal Neg [facility] Comment on above: Performed By: #### 2 [id number] #### MAYANK Urinalysis Manual Subsection [address] [place] [address] UA Completeon 08-02-2018 Color Nom (U) Straw Normal Yellow [facility] Comment on above: Performed By: #### 8 [id number] #### MAYANK Urinalysis Automated Subsection [address] [place] [address] Glucose mass conc (U) Negative Normal Negative [facility] Comment on above: Performed By: #### 8 [id number] #### MAYANK Urinalysis Automated Subsection [address] [place] [address] Ketones Ql (U) Negative Normal Negative [facility] Comment on above: Performed By: #### 8 [id number] #### MAYANK Urinalysis Automated Subsection [address] [place] [address] RBC #/vol (U) 0-3 Normal 0-3 [facility] Comment on above: Performed By: #### 8 [id number] #### MAYANK Urinalysis Automated Subsection [address] [place] [address] UA Blood 1+ Abnormal Negative [facility] Comment on above: Performed By: #### 8 [id number] #### MAYANK Urinalysis Automated Subsection [address] [place] [address] UA Bacteria Trace Abnormal None [facility] Comment on above: Performed By: #### 8 [id number] #### MAYANK Urinalysis Automated Subsection [address] [place] [address] UA Clarity Clear Normal Clear [facility] Comment on above: Performed By: #### 8 [id number] #### MAYANK Urinalysis Automated Subsection [address] [place] [address] UA Leuk Est Negative Normal Negative [facility] Comment on above: Performed By: #### 8 [id number] #### MAYANK Urinalysis Automated Subsection [address] [place] [address] UA Nitrite Negative Normal Negative [facility] Comment on above: Performed By: #### 8 [id number] #### MAYANK Urinalysis Automated Subsection [address] [place] [address] UA pH 6.0 Normal 4.6-8.0 [facility] Comment on above: Performed By: #### 8 [id number] #### MAYANK Urinalysis Automated Subsection [address] [place] [address] UA Protein Negative Normal Negative [facility] Comment on above: Performed By: #### 8 [id number] #### MAYANK Urinalysis Automated Subsection [address] [place] [address] UA Spec Grav 1.005 Normal 1.003-1.030 [facility] Comment on above: Performed By: #### 8 [id number] #### MAYANK Urinalysis Automated Subsection [address] [place] [address] UA Squam Epithelial 0-5 Normal 0-5 [facility] Comment on above: Performed By: #### 8 [id number] #### MAYANK Urinalysis Automated Subsection [address] [place] [address] UA Urobilinogen Negative Normal [facility] Comment on above: Performed By: #### 8 [id number] #### MAYANK Urinalysis Automated Subsection [facility] [place] [address] UA WBC 0-5 Normal 0-5 [facility] Comment on above: Performed By: #### 8 [id number] #### MAYANK Urinalysis Automated Subsection [facility] [place] [id number] Urobilinogen Qn (U) Negative Normal Negative [facility] Comment on above: Performed By: #### 8 [id number] #### MAYANK Urinalysis Automated Subsection [address] [place], [place] [address] eGFRon 08-02-2018 GFR/1.73 sq M predicted among non-blacks MDRD vol rate/area (S/P/Bld) mL/min/{1.73_m2} Normal [facility] Comment on above: Order Comment: Order added by Discern Expert. Performed By: #### 1 [id number] #### MAYANK [facility] [address] [place], [place] [address] Vital Signs Date Time Vital Sign Value Performing Clinician Jorge Luis pelayo 12-28-2024 08:08-0500 Body height 154.[address] Sonja Landaverde MD Work Phone: [facility] 12-28-2024 08:03-0500 Body mass index (BMI) [Ratio] 23.8 kg/m2 Dr. Sonja Landaverde MD Work Phone: [facility] 12-28-2024 08:03-0500 Body weight 57.[address] Sonja Landaverde MD Work Phone: [facility] 12-28-2024 08:03-0500 Diastolic blood pressure 73 mm[Hg] Dr. Sonja Landaverde MD Work Phone: [facility] 12-28-2024 08:03-0500 Systolic blood pressure 106 mm[Hg] Dr. Sonja Landaverde MD Work Phone: [facility] 12-13-2022 08:31-0500 Body height 154.[address] Sonja Landaverde Work Phone: [facility] 12-13-2022 08:31-0500 Body mass index (BMI) [Ratio] 23.4 kg/m2 Dr. Sonja Landaverde Work Phone: [facility] 12-13-2022 08:31-0500 Body weight 56.[address] Sonja Landaverde Work Phone: [facility] 12-13-2022 08:31-0500 Diastolic blood pressure 75 mm[Hg] Dr. Sonja Landaverde Work Phone: [facility] 12-13-2022 08:31-0500 Systolic blood pressure 106 mm[Hg] Dr. Sonja Landaverde Work Phone: [facility] 09-25-2022 11:05-0400 Body height 154.9 cm Julio Cesar Holguin Other Phone: [facility] 09-25-2022 11:05-0400 Body temperature 97.7 [degF] Julio Cesar Holguin Other Phone: [facility] 09-25-2022 11:05-0400 Diastolic blood pressure 73 mm[Hg] Julio Cesar Holguin Other Phone: [facility] 09-25-2022 11:05-0400 Heart rate 86 /min Julio Cesar Holguin Other Phone: [facility] 09-25-2022 11:05-0400 Respiratory rate 18 /min Julio Cesar Holguin Other Phone: [facility] 09-25-2022 11:05-0400 SaO2% (BldA) [Mass fraction] 98 % Julio Cesar Holguin Other Phone: [facility] 09-25-2022 11:05-0400 Systolic blood pressure 107 mm[Hg] Julio Cesar Holguin Other Phone: [facility] 06-10-2022 10:35-0400 Body temperature 97.1 [degF] PLATFORM CONSULTANT-C Julio Cesar Wainscott PLATFORM CONSULTANT Work Phone: [facility] Work Phone: 06-10-2022 10:35-0400 Diastolic blood pressure 59 mm[Hg] PLATFORM CONSULTANT-C Julio Cesar Wainscott PLATFORM CONSULTANT Work Phone: [facility] Work Phone: 06-10-2022 10:35-0400 Respiratory rate 16 /min PLATFORM CONSULTANT-C Julio Cesar Wainscott PLATFORM CONSULTANT Work Phone: [facility] Work Phone: 06-10-2022 10:35-0400 SaO2% (BldA) [Mass fraction] 100 % PLATFORM CONSULTANT-C Julio Cesar Wainscott PLATFORM CONSULTANT Work Phone: [facility] Work Phone: 06-10-2022 10:35-0400 Systolic blood pressure 90 mm[Hg] PLATFORM CONSULTANT-C Julio Cesar Wainscott PLATFORM CONSULTANT Work Phone: [facility] Work Phone: 06-10-2022 10:30-0400 Heart rate 60 /min PLATFORM CONSULTANT-C Julio Cesar Wainscott PLATFORM CONSULTANT Work Phone: [facility] Work Phone: 06-10-2022 08:25-0400 Body height 154.94 cm PLATFORM CONSULTANT-C Julio Cesar Wainscott PLATFORM CONSULTANT Work Phone: [facility] Work Phone: 06-10-2022 08:25-0400 Body mass index (BMI) [Ratio] 22.4 kg/m2 PLATFORM CONSULTANT-C Julio Cesar Wainscott PLATFORM CONSULTANT Work Phone: [facility] Work Phone: 06-10-2022 08:25-0400 Body weight 54 kg PLATFORM CONSULTANT-C Julio Cesar Wainscott PLATFORM CONSULTANT Work Phone: [facility] Work Phone: 03-31-2022 10:30-0400 Body height 154.94 cm PLATFORM CONSULTANT-C Julio Cesar Wainscott PLATFORM CONSULTANT Work Phone: [facility] Work Phone: 03-31-2022 10:30-0400 Body mass index (BMI) [Ratio] 23 kg/m2 PLATFORM CONSULTANT-C Julio Cesar Wainscott PLATFORM CONSULTANT Work Phone: [facility] Work Phone: 03-31-2022 10:30-0400 Body weight 55.33 kg PLATFORM CONSULTANT-C Julio Cesar Wainscott PLATFORM CONSULTANT Work Phone: [facility] Work Phone: 03-30-2022 08:54-0400 Body mass index (BMI) [Ratio] 23 kg/m2 PLATFORM CONSULTANT-C Julio Cesar Wainscott PLATFORM CONSULTANT Work Phone: [facility] Work Phone: 03-30-2022 08:54-0400 Body temperature 98 [degF] PLATFORM CONSULTANT-C Julio Cesar Wainscott PLATFORM CONSULTANT Work Phone: [facility] Work Phone: 03-30-2022 08:54-0400 Body weight 55.33 kg PLATFORM CONSULTANT-C Julio Cesar Wainscott PLATFORM CONSULTANT Work Phone: [facility] Work Phone: 03-30-2022 08:54-0400 Diastolic blood pressure 66 mm[Hg] PLATFORM CONSULTANT-C Julio Cesar Wainscott PLATFORM CONSULTANT Work Phone: [facility] Work Phone: 03-30-2022 08:54-0400 Heart rate 77 /min PLATFORM CONSULTANT-C Julio Cesar Wainscott PLATFORM CONSULTANT Work Phone: [facility] Work Phone: 03-30-2022 08:54-0400 Respiratory rate 14 /min PLATFORM CONSULTANT-C Julio Cesar Wainscott PLATFORM CONSULTANT Work Phone: [facility] Work Phone: 03-30-2022 08:54-0400 SaO2% (BldA) [Mass fraction] 98 % PLATFORM CONSULTANT-C Julio Cesar Holguin PLATFORM CONSULTANT Work Phone: [facility] Work Phone: 03-30-2022 08:54-0400 Systolic blood pressure 112 mm[Hg] PLATFORM CONSULTANT-C Julio Cesar Holguin PLATFORM CONSULTANT Work Phone: [facility] Work Phone: 09-29-2021 15:32-0400 Body height 167.64 cm Julio Cesar Holguin Work Phone: [facility] Work Phone: 09-29-2021 15:32-0400 Body mass index (BMI) [Ratio] 20.59 kg/m2 Julio Cesar Holguin Work Phone: [facility] Work Phone: 09-29-2021 15:32-0400 Body surface area Derived from formula 1.65 m2 Julio Cesar Holguin Work Phone: [facility] Work Phone: 09-29-2021 15:32-0400 Body temperature 97.3 [degF] Julio Cesar Holguin Work Phone: [facility] Work Phone: 09-29-2021 15:32-0400 Body weight 57.86 kg Julio Cesar Holguin Work Phone: [facility] Work Phone: 09-29-2021 15:32-0400 Diastolic blood pressure 66 mm[Hg] Julio Cesar Londono Wainscott Work Phone: [facility] Work Phone: 09-29-2021 15:32-0400 Heart rate 89 /min Julio Cesar Holguin Work Phone: [facility] Work Phone: 09-29-2021 15:32-0400 SaO2% (BldA) [Mass fraction] 98 % Julio Cesar Holguin Work Phone: [facility] Work Phone: 09-29-2021 15:32-0400 Systolic blood pressure 94 mm[Hg] Julio Cesar Holguin Work Phone: [facility] Work Phone: 09-08-2021 15:26-0400 Body height 167.64 cm Julio Cesar Holguin Work Phone: [facility] Work Phone: 09-08-2021 15:26-0400 Body mass index (BMI) [Ratio] 20.05 kg/m2 Julio Cesar Holguin Work Phone: [facility] Work Phone: 09-08-2021 15:26-0400 Body surface area Derived from formula 1.63 m2 Julio Cesar Holguin Work Phone: [facility] Work Phone: 09-08-2021 15:26-0400 Body temperature 96.4 [degF] Julio Cesar Holguin Work Phone: [facility] Work Phone: 09-08-2021 15:26-0400 Body weight 56.36 kg Julio Cesar Holguin Work Phone: [facility] Work Phone: 09-08-2021 15:26-0400 Diastolic blood pressure 66 mm[Hg] Julio Cesar Holguin Work Phone: [facility] Work Phone: 09-08-2021 15:26-0400 Heart rate 72 /min Julio Cesar Holguin Work Phone: [facility] Work Phone: 09-08-2021 15:26-0400 SaO2% (BldA) [Mass fraction] 96 % Julio Cesar Holguin Work Phone: [facility] Work Phone: 09-08-2021 15:26-0400 Systolic blood pressure 100 mm[Hg] Julio Cesar Holguin Work Phone: [facility] Work Phone: Encounters Encounter Date Encounter Type Care Provider Facility Start: 05-09-2025 ambulatory Roge Sarkar Facility: [facility] Start: 04-30-2025 End: 04-30-2025 ambulatory Spencer Chino [facility] [place] [place]: 02-07-2025 Encounter for genera l adult medical examination without abnormal findings Spencer Chino [facility] Start: 01-23-2025 End: 01-23-[address] Sonja Landaverde MD Work Phone: [facility] Work Phone: Start: 01-23-2025 End: 01-23-2025 Patient encounter procedure Spencer Chino PLATFORM CONSULTANT-C -Laboratory, Sailaja Parisi Start: 01-23-2025 End: 01-23-2025 ambulatory Spencer Chino [facility] Facility:[facility] Start: 12-28-2024 End: 12-28-2024 Patient encounter procedure Ladonna Grant [facility] Work Phone: Start: 12-28-2024 End: 12-28-2024 Patient encounter status Ladonna Grant [facility] Start: 12-28-2024 End: 12-28-2024 ambulatory [facility] Start: 07-18-2024 End: 07-18-2024 Emergency department patient visit PHYSICIAN [facility] Start: 06-25-2024 End: 06-25-2024 ambulatory [facility] Facility:[facility] Start: 06-23-2023 End: 06-23-2023 ambulatory [facility] Work Phone: Start: 06-23-2023 End: 06-23-2023 Patient encounter procedure [facility] Work Phone: Start: 12-13-2022 End: 12-13-[address] Sonja Landaverde Work Phone: [facility] Work Phone: Start: 12-13-2022 End: 12-13-[address] Sonja Ladnaverde Work Phone: [facility] Start: 09-25-2022 End: 09-25-2022 Emergency department patient visit Kerry Hardy [facility] Start: 06-10-2022 Non-patient / Non-visit PLATFORM CONSULTANT-Ingris Holguin PLATFORM CONSULTANT Work Phone: [facility] Start: 06-10-2022 End: 06-10-2022 Admission to same day surgery center PLATFORM CONSULTANT-Ingris Holguin PLATFORM CONSULTANT Work Phone: [facility] Start: 05-28-2022 End: 05-28-2022 Patient encounter procedure PLATFORM CONSULTANT-Ingris Holguin PLATFORM CONSULTANT Work Phone: [facility] Start: 03-31-2022 Non-patient / Non-visit PLATFORM CONSULTANT-Ingris Holguin PLATFORM CONSULTANT Work Phone: [facility] Start: 03-30-2022 Patient encounter status PLATFORM CONSULTANT-Ingris Holguin PLATFORM CONSULTANT Work Phone: [facility] Start: 03-30-2022 End: 03-30-2022 Encounter for general adult medical examination without abnormal findings PLATFORM CONSULTANT-C Julio Cesar Camarapster PLATFORM CONSULTANT Work Phone: [facility] Start: 03-30-2022 End: 03-30-2022 Patient encounter procedure PLATFORM CONSULTANT-Ingris Holguin PLATFORM CONSULTANT Work Phone: [facility] Start: 10-30-2021 ambulatory Ms. Julio Cesar christie [place] Facility:[id number] Start: 09-29-2021 Office outpatient vi sit 15 minutes Julio Cesar Bry HodgeWainscott Work Phone: [employer] Work Phone: Start: 09-28-2021 Chart Update Julio Cesar Camaraearline ster Work Phone: [facility] [employer] Work Phone: Start: 09-08-2021 Office outpatient vi sit 15 minutes Julio Cesar Holguin Work Phone: [facility] [employer] Work Phone: Start: 02-13-2019 Patient encounter procedure Julio Cesar Mccauley [place] Facility:[facility] Start: 02-13-2019 End: 02-14-2019 Patient encounter procedure Julio Cesar Mccauley [place] Facility:[facility] Start: 09-07-2018 End: 09-07-2018 Patient encounter procedure Jey Joseph Facility:[facility] Start: 08-08-2018 End: 08-09-2018 Patient encounter procedure Julio Cesar Mccauley [place] Facility:[facility] Start: 08-02-2018 Patient encounter Facil [id number] Start: 08-02-2018 End: 08-02-2018 Emergency department patient visit Julio Cesar Mccauley [place] Facility:[facility] Start: 08-01-2018 Patient encounter Facil [id number] Start: 07-20-2018 End: 07-21-2018 Patient encounter procedure Julio Cesar Mccauley [place] Facility:[facility] Start: 09-07-2017 End: 09-07-2017 Ambulatory JULIO CESAR HOLGUIN [facility] Procedures Date Procedure Procedure Detail Performing Clinician Start: 06-23-2023 Screening mammography Start: 06-10-2022 Colonoscopy PLATFORM CONSULTANT-C Jovana Banegas PLATFORM CONSULTANT Work Phone: Start: 05-28-2022 Screening mammography N P-C Julio Cesar Holguin PLATFORM CONSULTANT Work Phone: Start: 02-24-2021 Follow-up visit Ligation of fallopian tube M kumar Londono Carlos Work Phone: Partial hysterectomy Julio Cesardavid Holguin Work Phone: Plan of Treatment Date Care Activity Detail Author Start: 01-23-2025 Vitamin B12 measurement [facility] Start: 01-23-2025 Vitamin D, 25-hydrox y measurement [facility] Start: 12-13-2022 Patient referral [facility] Work Phone: Start: 06-10-2022 Patient discharge [facility] Work Phone: Start: 03-30-2022 Patient referral [facility] Work Phone: Colonoscopy [facility] Work Phone: MG Breast - bilateral Screening [facility] MG Breast - bilateral Screening [facility] Patient referral [facility] Work Phone: Payers Date Payer Category Payer Self-pay [id number] 2024 Unknown [id number] 2023 Unknown [id number] 2017 Unknown 2016 Medicaid [id number] 1975 Unknown [id number] 2.16.84 [id number]. 1975 Unknown [id number] 2.16.84 0.1.771935.3.579.2. 1975 Unknown [id number] 2.16.84 [id number] 1975 Unknown [id number] 2.16.84 0.1.485391.3.579.2.7 1975 Unknown [id number] 2.16.84 0.1.792695.3.579.2.7 1975 Unknown [id number] 2.16.84 0.1.043259.3.579.2. 1975 Unknown [id number] 2.16.84 0.1.295614.3.579.2.7 1975 Unknown [id number] 2.16.8 40.1.822755.3.579.2.9 1975 Unknown [id number] 2.16.8 [id number] 1975 Unknown [id number] 2.16. [id number] Unknown [id number] 2.16.8 [id number] Unknown [id number] 2.16.8 [id number] Unknown [id number] 2.16.8 [id number] Unknown [id number] 2.16.8 [id number] Unknown [id number] 2.16.8 [id number] Social History Date Type Detail Facility No alcohol use No alcohol use -[facility] Work Phone: Start: 03-30-2022 End: 12-13-2022 Tobacco smoking status MNIS Unknown if ever smoked [facility] Start: 06-14-2019 Vapor [facility] Start: 1975 Sex Assigned At Female [facility] Start: 12-14-2023 [facility] day sm[facility] Start: 02-07-2025 [facility] ([facility] Procedure Code Equipment Code Equipment Origin al Text Equipment Identifier Dates Vaginal hysterectomy SARAH 3GRM HEMOSTAT ABS FDA Start: 06-21-2019 Vaginal hysterectomy SARAH 3GRM HEMOSTAT ABS FDA Start: 06-21-2019 Vaginal hysterectomy SARAH 3GRM HEMOSTAT ABS FDA Start: 06-21-2019 Vaginal hysterectomy SARAH 3GRM HEMOSTAT ABS FDA Start: 06-21-2019 Vaginal hysterectomy SARAH 3GRM HEMOSTAT ABS FDA Start: 06-21-2019 Goals Date Patient Goal Desired Activity /State Mental Status Date Assessment Result Facility 06-10-2022 Cognitive function Level Of Cons ciousness Awake;Drowsy [facility] Work Phone: 06-10-2022 Cognitive function Voice/Name [facility] Work Phone: Evaluation note 12-28-2024 Note Date & Type Note Facility 12-28-2024 Evaluation note Diagnosis Onset Date Resolution Encounter for well woman exam with routine gynecological exam acute December 28, 2024 7:45am Encounter for routine gynecological examination noneactive December 28 7:45am [facility] Work Phone: Evaluation note Note Date & Type Note Facility Evaluation note Diagnosis Onset Date Colon cancer screening acute Encounter to establish care acute Hyperlipidemia acute Preventative health care acu te [facility] Work Phone: Evaluation note Note Date & Type Note Facility Evaluation note Diagnosis Onset Date Colon cancer screening acute Encounter to establish care acute Hyperlipidemia acute Preventative health care acu te Colon cancer screening acute [facility] Work Phone: Evaluation note Note Date & Type Note Facility Evaluation note Diagnosis Onset Date Encounter for routine gyneco logical examination noneactive [facility] Work Phone: Evaluation note Note Date & Type Note Facility Evaluation note No assessment information availa ble [facility] Work Phone: History of Present illness Narrative Note Date & Type Note Facility History of Present illness Narrative She presents today to discuss her elevated cholesterol levels. 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 She does not have any family history of early CAD. She is a smoker. Her weight is under good control she has a normal blood pressure. She has started walking for exercise. We have discussed on previous occasions about a healthy diet and low-cholesterol diet and she has not changed anything so far. We will get a CT cardiac score test and determine medication treatment from that point. [facility] Work Phone: History of Present illness Narrative Note Date & Type Note Facility History of Present illness Narrative She presents today for follow up of CT cardiac score test. Her score was 258, which puts her in the intermediate category. She denies chest pain or pressure with activity. She does get short of breath and fatigue with some activity. With stretching she will get some chest discomfort and then fluttering in her chest. She denies any heart burn or food getting stuck sensation. She also has a hiatal hernia. Her mom is currently going to have a stent placed, but no other family cardiac history. She has had elevated cholesterol. I recommended aggressive risk factor reduction, cholesterol medication and baby aspirin as well as smoking cessation. Exercise-she does 20 minutes on a treadmill every day at a speed of 3.6. She tolerates it well. As well as heart healthy diet. [facility] Work Phone: Hospital Discharge instructions Note Date & Type Note Facility Hospital Discharge instructions [facility] Work Phone: Hospital Discharge instructions Note Date & Type Note Facility Hospital Discharge instructions [facility] Work Phone: Reason for referral (narrative) Note Date & Type Note Facility Reason for referral (narrative) No reason for referral information available [facility] Work Phone: Summary Purpose Family History No Family History Records FoundUnknown Family Member Name Dates Details Family history of malignant neoplasm: Grandparent(V16.9, Z80.9) Status:Active Unknown Family Member Name Dates Details Family history of malignant neoplasm: Grandparent(V16.9, Z80.9) Status:Active Unknown Family Member Name Dates Details Family history of malignant neoplasm: Grandparent(V16.9, Z80.9) Status:Active Relationship Condition Age at Onset Recorded Date/T savannah Not Specified Cardiac disease Unknown grandmother Malignant neoplasm Unknown Malignant neoplasm of lung Unknown grandfather Malignant neoplasm Unknown Anxiety Unknown Depression Unknown mother Hyperlipidemia Unknown Advance Directives No Advanced Directives Records Found Advance Directive Response Recorded Date/ Time Living Will No June 14, 2019 10:21am Power of Master Fisher No June 14 9 10:21am Advance Directive Response Recorded Date/ Time Living Will No June 08, 2022 12:12pm Power of Master Fisher No June 08 2 12:12pm Advance Directive Response Recorded Date/ Time Living Will No June 08, 2022 11:12am Power of Master Fisher No June 08 11:12am Chief Complaint Pt presents with concerns regarding elevated cholesterol levels for the past couple of years.Pt presents for CT CACS f/u Chief Complaint and Reason for Visit Chief Complaint 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 CONSULTANT, EST.CARE-NPP FABIÁN LED Amb Documentation SCREENING Reason for Visit Colon cancer screeni ng Encounter to establish care Hyperlipidemia Preventative health care Chief Complaint 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 CONSULTANT, EST.CARE-NPP FABIÁN LED Amb Documentation SCREENING Reason for Visit Colon cancer screeni ng Encounter to establish care Hyperlipidemia Preventative health care Colon cancer screening Chief Complaint 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) Reason for Visit Encounter for routin e gynecological examination Chief Complaint SCREENING Chief Complaint Admit Date 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) December 28, 2024 7 :45am Reason for Visit Admit Date Encounter for well woman excarlita m with routine gynecological exam December 28, 2024 7:45am Encounter for routine gynecological exam ination December 28, 2024 7:45am Additional Source Comments INFORMATION SOURCE (unrecogn ized section and content) DATE CREATED AUTHOR 05/23/2018 [facility] DATE CREATED AUTHOR AUTHOR'S ORGANIZ ATION 08/16/2018 [facility] DATE CREATED AUTHOR AUTHOR'S ORGANIZ ATION 02/14/2019 [facility] DATE CREATED AUTHOR AUTHOR'S ORGANIZ ATION 10/01/2021 [facility] DATE CREATED AUTHOR AUTHOR'S ORGANIZ ATION 09/28/2022 [facility] DATE CREATED AUTHOR AUTHOR'S ORGANIZ ATION 07/25/2024 [facility] DATE CREATED AUTHOR AUTHOR'S ORGANIZ ATION [facility] Goals (unrecognized section and content) Goals may be documented in a n alternate sectionGoals may be documented in an alternate sectionGoals may be documented in an alternate sectionGoals may be documented in an alternate section <item> Privacy Markings (unrecogniz ed section and content) Section Author: Shelby Campo PROHIBITION ON REDISCLOSURE OF CONFIDENTIAL INFORMATION This notice accompanies a disclosure of information concerning a client made to you with the consent of such client. Care Teams (unrecognized sec tion and content) Team Status: Active Member Role Status Dates Julio Cesar Holguin NP, PLATFORM CONSULTANT-C Family Provider Active Dr. Sonja Landaverde MD Primary Care Provider Active Team Status: Inactive Member Role Status Dates Dr. Sonja Landaverde MD Primary Care Provider, Refer ring Provider Active Ladonna Grant CNM Attending Provider Active Team Status: Inactive Member Role Status Dates Dr. Sonja Landaverde MD Primary Care Provider Active Ladonna Grant CNM Attending Provider, Referring Pr ovider Active Team Status: Active Member Role Status Dates Julio Cesar Holguin NP, PLATFORM CONSULTANT-C Family Provider Active Spencer RAPHAEL NP-C Primary Care Provider Active Team Status: Inactive Member Role Status Dates Dr. Sonja Landaverde MD Referring Provider Active Start: December 28, 2024 End: December 28, 2024 Ladonna Grant CNM Attending Provider Active Start: December 28, 2024 End: December 28, 2024 Neto Harris MD Primary Care Provider Active St art: December 28, 2024 End: December 28, 2024 Team Status: Inactive Member Role Status Dates Spencer RAPHAEL NP-Ingris Primary Care Provider Active Start: January 23, 2025 End: January 23, 2025 Spencer RAPHAEL NP-Ingris Attending Provider Active S tart: January 23, 2025 End: January 23, 2025 FOR RECORDS PERTAINING TO PATIENTS WHO ARE OR HAVE BEEN ENROLLED IN A CHEMICAL DEPENDENCY/SUBSTANCEABUSE PROGRAM, SOME INFORMATION MAY BE OMITTED. This clinical summary was aggregated from multiple sources. Caution should be exercised in using it in the provision of clinical care. This summary normalizes information from multiple sources, and as a consequence, information in this document may materially change the coding, format and clinical context of patient data. In addition, data may be omitted in some cases. CLINICAL DECISIONS SHOULD BE BASED ON THE PRIMARY CLINICAL RECORDS. [employer] [facility]. provides no warranty or guarantee of the accuracy or completeness of information in this document.
[2025-05-09 07:07] VITALS: BP 103/76; PULSE 96; RESP 16; TEMP 36.1; O2SAT 99; BMI 23.3
[2025-05-09] MEDS: Lactated Ringers 1,000 ML 15 ML IV (07:22)
--- NOTE | 2025-05-09 07:43 | HP.PCM_ITS ---
History and Physical Date of Admission: 05/09/25 Date of Service: 04/30/25 MR#: [id number] Acct: [id number] Name: DARLENE CARRION Rep #: [id number] : 1975 Provider: Dr. Roge Sarkar MD Age/Sex: 50/F Location: [facility] Status: Signed Intake Vital Signs 12/28/2507:08 04/30/2509:31 Height 5 ft 1 in 5 ft 1 in Weight: 128 lb BMI 24.1 BP 101/60 Blood Pressure Location Rt brachial Position Sitting Pulse 73 Pulse Source Monitor Pulse Oximetry (%) 98 Oxygen Delivery Method room air Intake Visit Reasons: RECALL COLONOSCOPY, BLOOD IN STOOL Chief Complaint: recall colonoscopy/blood in stool Is patient in pain?: No Allergies codeine Allergy (Mild, Verified 04/30/25 09:33) OtherSulfa (Sulfonamide Antibiotics) Allergy (Mild, Verified 04/30/25 09:33) Other Medications ?Medication ?Instructions ?Recorded ?Confirmed ?Type valacyclovir 500 mg tablet 500 mg PO BID #30 tabs 11/10/22 04/30/25 Rx (Valtrex) cholecalciferol (vitamin D3) 25 25 mcg PO QDAY 04/30/25 04/30/25 History mcg (1,000 unit) capsule PFSH Medical History Abnormal mammogram Wears glasses Wears partial dentures Smoker Preventative health care Encounter to establish care Colon cancer screening Herpes Hyperlipidemia Surgical History History of LAVH H/O tubal ligation Family History Grandmother Cancer Lung cancerGrandfather Cancer prostate Anxiety Depression Lung cancerMother HyperlipidemiaOther Heart disease Social History Smoking Status: Current some day smoker tobacco type: e-cigarettes Electronic Cigarette Use: with nicotine alcohol intake: never substance use type: does not use caffeine: Yes what type of physical activity do you participate in: none frequency: 3-4 times per week seatbelt use: always do you feel safe at home: Yes additional social history: - [employer] HPI HPI HPI: Patient is a 50-year-old female who is known to me from a prior colonoscopy completed May 2022 and who presents for need to schedule surveillance colonoscopy secondary to history of advanced adenomatous polyps (serrated adenomas) at index scope as well as reports of some recent blood per rectum. They are referred for surgical consultation from Spencer Chino NP. Patient shares that for the past 1 to 1-1/2 months she has experienced some dark blood in her stools. She states that this has spontaneously resolved as of the last week. She she attributes this resolution to no longer eating nuts as she had been doing in some excess. She denies any concurrent use of Pepto-Bismol or iron supplements during this time. She further denies any evidence of hemorrhoids with specific denial of any signs of tissue protrusion, pain or itching. They describe their bowel habits as normal. They have approximately 1 bowel movements per day and spend roughly 5-7 minutes on the toilet but acknowledges there has been some significant straining of late. They do not regularly take fiber supplements. They do consume significant fiber in their regular diet. Additionally, they report they have made a conscious effort to increase their water intake as previously they had been drinking rather large volume of pop Patient has no family history of colon cancer, inflammatory bowel disease, diverticulitis. The patient's weight is stable. The patient is not prescribed anticoagulants/blood thinners. Relevant prior abdominal surgical history includes: [facility] Patient does not have a significant history of GERD/heartburn ROS General General: No weight change, appetite, fatigue, colon cancer, breast cancer or weakness HEENT HEENT: No difficulty swallowing, eye injury, eye surgery, swollen glands or hoarseness Endo Endocrine: No thyroid disease, diabetes mellitus, thyroid cancer, Hair loss, heat intolerance or cold intolerance Skin Skin: No rash or changing moles Musc Musculoskeletal: No back problems, arthritis, rheumatoid arthritis, gout or joint pain Cardio Cardiovascular: No murmur, pacemaker, heart disease, atrial fibrillation, high blood pressure, heart attack, heart stent, palpitations, shortness of breath with exertion or chest pain Psych Psychiatric: No depression, anxiety or hearing voices Resp Respiratory: No shortness of breath, No sleep apnea, No cough, No COPD, No asthma, No emphysema and No wheezing Gastro Gastrointestinal: No abdominal pain, No nausea or vomiting, No diarrhea, No constipation, Yes blood in stool, No acid reflux, No hemorrhoids, No ulcers, No gallbladder problem and No black,tarry stools Mike Hematologic: No blood thinners, No blood disorders, No bleeding, No anemia and No blood clots Neuro Neurologic: No system reviewed and no additional complaints, except as documented, No as per HPI, No abnormal gait, No abnormal hearing, No abnormal movements, No abnormal speech, No behavioral changes, No burning sensations, No confusion, No convulsions, No disequilibrium, No dizziness, No localized weakness, No frequent falls, No headache(s), No lack of coordination, No loss of vision, No memory loss, No numbness, No other visual disturbances, No radicular pain, No restless legs, No sensory deficit, No syncope, No tingling, No tremor(s), No weakness and No other Exam Const General: cooperative and comfortable Orientation: alert, awake and oriented x3 Resp Effort & Inspection: normal respiratory effort GI Other: Mildly distended, soft, mild tenderness to palpation in right lower quadrant?otherwise benign Assessment and Plan Assessment and Plan (1) Blood per rectum: Status: Acute Comment: Patient is a 50-year-old female who makes office visit related to recent experience of what she has taken to be painless bleeding per rectum. She denies a history that would be consistent with a hemorrhoid source for this bleeding and now confirms that the bleeding appears spontaneously resolved. While I take that to be encouraging, I find it necessary to investigate further since it has been over 2 years since her last colonoscopy and she is otherwise due for surveillance colonoscopy given her history with serrated adenoma found at her index scope. She is advised of this recommendation and confirmed her agreement. Plan: Plan will be to complete colonoscopy on first mutually agreeable date under local MAC. Pre-procedure prep discussed and paper instructions provided. Patient is also made aware that she will need to have a truss driver helper with her the day of the procedure. (2) Personal history of adenomatous and serrated colon polyps: Status: Acute Comment: Subcentimeter serrated adenoma of the rectum found at 15 cm with patient's prior colonoscopy completed May 2022. I have examined the patient and the H&P has been reviewed. There are no clinical changes since date of exam. Patient confirms that she is continuing to do well without observing any further dark stools. She also confirms she completed prep for today's procedure. She denies any further questions. Abdominal exam is benign. Consents were confirmed. Proceed to endoscopy suite for surveillance colonoscopy.
[2025-05-09 07:55] VITALS: BP 103/76; PULSE 96; RESP 16; TEMP 36.1; O2SAT 99
--- NOTE | 2025-05-09 07:55 | PRE.ANES_ITS ---
ASA Classification* ASA Classification ASA Classification: 2 Assessment & Plan Anesthesia* Anesthesia Assessment Anesthesia Assessment: Discussed sedation and/or anesthesia options, risks, benefits, and alternatives with patient/parents/legal guardian/POA. Questions invited. The patient/parents/legal guardian/POA seems to understand and agrees to proceed with anesthesia plan. Reviewed the physical assessment, medical history, allergy history and patient home medications list prior to surgery/procedure/anesthetic and documented any changes. Performed airway and anesthesia risk assessments. Anesthesia Type Anesthesia Type: MAC Anesthesia Focused Assessment* Temperature: 97 F Pulse Rate: 96 Blood Pressure: 103/76 Respiratory Rate: 16 Pulse Ox: 99 Airway Assessment Mouth opens: >3 cm Mallampati Score: II Labs Anesthesia Preop lab: CBC WBC 6.3 K/mm3 (4.4-11.0) 01/23/25 16:04 01/23/25 RBC 4.87 M/mm3 (4.2-5.4) 01/23/25 16:04 01/23/25 Hgb 14.2 g/dL (12.0-15.0) 01/23/25 16:04 01/23/25 Hct 42.9 % (37-47) 01/23/25 16:04 01/23/25 Plt Count 210 K/mm3 (150-450) 01/23/25 16:04 01/23/25 CHEMISTRY Potassium 4.2 mmol/L (3.3-5.1) 01/23/25 16:04 01/23/25 Sodium 141 mmol/L (133-145) 01/23/25 16:04 01/23/25 BUN 15 mg/dL (4-19) 01/23/25 16:04 01/23/25 Creatinine 0.7 mg/dL (0.6-1.0) 01/23/25 16:04 01/23/25 Glucose 87 mg/dL (70-99) 01/23/25 16:04 01/23/25 POC Glucose 69 mg/dL (70-110) L 06/21/19 06:37 06/21/19 TSH 1.240 uIU/mL (0.300-4.200) 01/23/25 16:04 12/30 05/22 COAG PT 14.2 SECONDS (11.7-14.9) 06/21/19 06:12 Urine Test Negative Negative 06/21/19 05:36 06/21/19 Pre-Assessment Diagnosis/Proposed Procedure Planned Operative Procedure(s): COLONOSCOPY Anesthesia History 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 When Was Last Pacemaker Check QUESTION #4 FULL TEXT: You/Your Family Experience fever (hyperthermia) with Anesthesia Last Oral Intake Last Oral intake: Last Oral Intake NPO since Meds taken in AM with sips of water? Meds patient instructed to take am of surgery PONV PONV - water quality technician: PONV - water quality technician Female Yes 05/06/25 14:40 HX of Motion Sickness No 05/06/25 14:40 HX of N/V After Surgery No 05/06/25 14:40 Non-Smoker No 05/06/25 14:40 Duration of Surgery greater No 05/06/25 14:40 than 60 minutes Number of Risk Factors 1 05/06/25 14:40 PONV Score Low Risk 05/06/25 14:40 Height & Weight Height & Weight: Anesthesia: Height & Weight Height 5 ft 1 in 05/09/25 07:07 Weight: 56.1 kg 05/09/25 07:07 Body Mass Index (BMI) 23.3 05/09/25 07:07 Respiratory Assessment Respiratory Assessment - water quality technician: Respiratory Tract Infection Hx - water quality technician Hx Respiratory Tract Infection No 05/06/25 14:40 STOP Sleep Apnea STOP Sleep Apnea - water quality technician: STOP Sleep Apnea - water quality technician Hx Hypertension No 05/06/25 14:40 Hx Sleep Apnea No 05/06/25 14:40 CPAP BIPAP Do you snore loudly (louder No 05/06/25 14:40 than talking or can be heard Do you often feel tired/ No 05/06/25 14:40 fatigued/ sleepy during daytime? Has anyone observed you stop No 05/06/25 14:40 breathing during sleep? STOP Results Negative 05/06/25 14:40 QUESTION #5 FULL TEXT : Do you snore loudly (louder than talking or can be heard through closed doors)? 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 Specify any problems Hx of Preganancy in last 3 No 05/06/25 14:40 Months Nurse Filling Out Transfusion [email or web address] 05/06/25 14:40 & Questions: Date: 05/06/25 05/06/25 14:40 Time: 14:45 05/06/25 14:40 Patient unable to answer at this time (ie. confused, unrespo /Reproduction History /Reproductive History - water quality technician: /Reproductive Hx- water quality technician Hx Now No 05/06/25 14:40 Gestational Age (in weeks): EDC: Hx Hx Para Hx Section SAB No 05/06/25 14:40 Active Medications Active Medications: Current Medications Generic Name Dose Route Start Last Admin Trade Name Freq PRN Reason Stop Dose Admin Lactated Ringer's 1,000 mls @ 15 mls/hr 05/09/25 07:15 05/09/25 07:22 IV 15 mls/hr .Q48H ABIGAIL Administration PFSH Medical History Wears contact lenses Low iron Abnormal mammogram Wears glasses Wears partial dentures Smoker Preventative health care Encounter to establish care Colon cancer screening Herpes Hyperlipidemia Home Medications ?Medication ?Instructions ?Recorded ?Last Taken ?Type valacyclovir 500 mg tablet 500 mg PO BID #30 tabs 10/28 03/19 Unknown Rx (Valtrex) cholecalciferol (vitamin D3) 25 25 mcg PO QDAY 5 Unknown History mcg (1,000 unit) capsule Allergy/AdvReac Type Severity Reaction Status Date / Time codeine Allergy Mild Other Verified 05/09/25 07:07 Sulfa (Sulfonamide Allergy Mild Other Verified 05/09/25 07:07 Antibiotics) Family History Grandmother Cancer Lung cancer Grandfather Cancer prostate Anxiety Depression Lung cancer Mother Hyperlipidemia Other Heart disease Surgical History History of LAVH H/O tubal ligation Social History Smoking Status: Current some day smoker tobacco type: e-cigarettes Electronic Cigarette Use: with nicotine alcohol intake: never substance use type: does not use caffeine: Yes what type of physical activity do you participate in: none frequency: 3-4 times per week seatbelt use: always do you feel safe at home: Yes additional social history: - [employer] Review of Systems (Anesthesia) ROS Narrative System reviewed and no additional complaints, except as documented.
--- NOTE | 2025-05-09 08:00 | COLBX_PTH ---
PATIENT: DARLENE CARRION LOC: EN U#:[id number] AGE/SX: 50/F ROOM: RE05/09/[address]: Dr. Roge Sarkar MD : 1975 BED: DIS: 05/09/2025 SPEC #: [id number] RECD: 05/09/25 12:54 STATUS: ISABEL REBranden #: [id number] ЕЛЕНА: 05/09/25 08:[address]: Roge Sarkar DEPT: SURGICAL PATHOLOGY RECD BY: Chuck Zhang ENTERED: 05/09/25 14:38 SP TYPE: COLON BX OTHR DR: Spencer Chino, NUCLEAR PROCESS ENGINEER-C Tissues: A - Rectum, NOS Procedures: Surgery Specimen Level IV HEADER OPERATION: Colonoscopy with polypectomy PRE-OP DIAGNOSIS: Blood per rectum, personal history of adenomatous and serrated colon polyps TISSUE SUBMITTED: A- Rectal polyp MICROSCOPIC DIAGNOSIS A. Rectum, polyp, biopsy: * Benign polyp with marked cautery artifact - see note. * Note: Marked cautery artifact limits the assessment (deeper sections examined). The findings are suggestive of a hyperplastic polyp, however a tubular adenoma cannot be ruled out. MICROSCOPIC DESCRIPTION Slides are reviewed. GROSS DESCRIPTION A. Received in formalin labeled with the patient's name and date of . Designated as rectal polyp is a 0.4 cm danielle tissue fragment. Entirely submitted 1 cassette. [facility] [place] 05/09/2025 CPT:92725
[2025-05-09 08:40] VITALS: BP 100/71; BP 103/76; PULSE 78; PULSE 82; RESP 16; RESP 18; TEMP 36.6; O2SAT 100
--- NOTE | 2025-05-09 08:40 | PCM.POST.ANE ---
Anesthesia: Postop Eval I Current Vital Signs Temperature: 97.9 F Pulse Rate: 82 Blood Pressure: 100/71 Respiratory Rate: 18 Pulse Ox: 100 Assessment Airway patent: Yes Spontaneous unlabored respirations: Yes nausea: No Vomiting: No Anesthesia Complication: No Fluid Hydration Crystalloid volume administer (ml): 450 Total IV fluid infused: 450 Progress Note Anesthesia document: Postop Eval 1 completed: Yes
--- NOTE | 2025-05-09 08:44 | OP.COLON_ITS ---
Patient Name: Ember Rodriguez Procedure Date: 05/09/2025 7:48 AM Date of : 1975 Age: 50 Procedure: Colonoscopy Indications: High risk colon cancer surveillance: Personal history of sessile serrated colon polyp (less than 10 mm in size) with no dysplasia Providers: Roge Sarkar MD Referring MD: Roge Sarkar MD Medicines: See the Anesthesia note for documentation of the administered medications Patient Profile: Last Colonoscopy: 3 years ago. Complications: No immediate complications. Estimated blood loss: None. Procedure: Pre-Anesthesia Assessment: - The heart rate, respiratory rate, oxygen saturations, blood pressure, adequacy of pulmonary ventilation, and response to care were monitored throughout the procedure. After I obtained informed consent, the scope was passed under direct vision. Throughout the procedure, the patient's blood pressure, pulse, and oxygen saturations were monitored continuously. The Colonoscope was introduced through the anus and advanced to the cecum, identified by transillumination. The colonoscopy was performed without difficulty. The patient tolerated the procedure well. The quality of the bowel preparation was adequate to identify polyps greater than 5 mm in size. Scope In: 8:10:27 AM Scope Withdrawal Time 0 hours 7 minutes 50 seconds Scope Out: 8:33:48 AM Total Procedure Duration Time 0 hours 23 minutes 21 seconds Findings: The perianal and digital rectal examinations were normal. A 10 mm polyp was found in the rectum. The polyp was semi-sessile. The polyp was removed with a hot snare. Resection and retrieval were complete. Estimated blood loss: none. The exam was otherwise without abnormality on direct and retroflexion views. Impression: - One 10 mm polyp in the rectum, removed with a hot snare. Resected and retrieved. - The examination was otherwise normal on direct and retroflexion views. Recommendation: - Discharge patient to home (via wheelchair). - Resume previous diet today. - No aspirin, ibuprofen, naproxen, or other non-steroidal anti-inflammatory drugs for 2 days after polyp removal. - Await pathology results. - Repeat colonoscopy date to be determined after pending pathology results are reviewed for surveillance based on pathology results. - Telephone my office for pathology results in 1 week. Procedure Code(s): --- Professional --- 94279, Colonoscopy, flexible; with removal of tumor(s), polyp(s), or other lesion(s) by snare technique Diagnosis Code(s): --- Professional --- Z86.010, Personal history of colonic polyps D12.8, Benign neoplasm of rectum CPT copyright 2021 [employer]. All rights reserved. The codes documented in this report are preliminary and upon head kiln operator review may be revised to meet current compliance requirements. Roge Sarkar MD 05/09/2025 8:44:06 AM This report has been signed electronically. Number of Addenda: 0 Note Initiated On: 05/09/2025 7:48 AM
[2025-05-09 08:45] VITALS: BP 103/76; BP 104/75; PULSE 76; RESP 16; O2SAT 100
--- NOTE | 2025-05-09 08:45 | OP.CCLET_ITS ---
05/09/2025 Spencer Chino [facility], Director Clinical Information Services-c Re : Colonoscopy procedure for Ember Rodriguez Dear Matti This procedure was performed on April. My impressions and recommendations are as follows: Impressions : - One 10 mm polyp in the rectum, removed with a hot snare. Resected and retrieved. - The examination was otherwise normal on direct and retroflexion views. Recommendations : - Discharge patient to home (via wheelchair). - Resume previous diet today. - No aspirin, ibuprofen, naproxen, or other non-steroidal anti-inflammatory drugs for 2 days after polyp removal. - Await pathology results. - Repeat colonoscopy date to be determined after pending pathology results are reviewed for surveillance based on pathology results. - Telephone my office for pathology results in 1 week. My findings are described in the full procedure note, which is enclosed. If I can be of further assistance, please feel free to contact me at Doctor phone number(s): , Work: . Sincerely, Roge Sarkar MD 05/09/2025 8:44:06 AM This report has been signed electronically.
[2025-05-09 08:50] VITALS: BP 103/76; BP 96/69; PULSE 74; RESP 16; TEMP 36.8; O2SAT 100
--- NOTE | 2025-05-09 08:57 | POSTOPAN2_ITS ---
Anesthesia Postop Eval I Sum Postop Eval Completion status Anesthesia document: Postop Eval 1 completed: Yes Anesthesia Postop Eval I Summary Anesthesia Postop Eval I Summary: Anesthesia Postop Eval I: Assessment Summary Airway patent Yes 05/09/25 08:40 CANAL TENDER.[email or web address] Spontaneous unlabored Yes 05/09/25 08:40 CANAL TENDER.DMAY respirations Mental status nausea No 05/09/25 08:40 CANAL TENDER.DMAY Vomiting No 05/09/25 08:40 CANAL TENDER.DMAY Anesthesia Postop Eval I: Fluid Summary Crystalloid volume administer 450 05/09/25 08:40 CANAL TENDER.DMAY (ml) Colloids volume administered ( ml) Blood Product volume administered (ml) Total IV fluid infused 450 05/09/25 08:40 CANAL TENDER.DMAY Anesthesia Postop Eval I: Summary Notes Anesthesia Complication No 05/09/25 08:40 CANAL TENDER.DMAY Anesthesia Complication Comment: Post-operative progress note Anesthesia: Postop Eval II Evaluation Mental status: Awake Pain Level: 0 nausea: No Vomiting: No
--- NOTE | 2025-05-09 08:57 | PCM.POSTANE2 ---
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 RITUAL SLAUGHTERER.[email or web address] Spontaneous unlabored Yes 05/09/25 08:40 RELIGIOUS RITUAL SLAUGHTERER.DMAY respirations Mental status nausea No 05/09/25 08:40 RELIGIOUS RITUAL SLAUGHTERER.DMAY Vomiting No 05/09/25 08:40 RELIGIOUS RITUAL SLAUGHTERER.DMAY Anesthesia Postop Eval I: Fluid Summary Crystalloid volume administer 450 05/09/25 08:40 RELIGIOUS RITUAL SLAUGHTERER.DMAY (ml) Colloids volume administered ( ml) Blood Product volume administered (ml) Total IV fluid infused 450 05/09/25 08:40 RELIGIOUS RITUAL SLAUGHTERER.DMAY Anesthesia Postop Eval I: Summary Notes Anesthesia Complication No 05/09/25 08:40 RELIGIOUS RITUAL SLAUGHTERER.DMAY Anesthesia Complication Comment: Post-operative progress note Anesthesia: Postop Eval II Evaluation Mental status: Awake Pain Level: 0 nausea: No Vomiting: No
[2025-05-09 09:05] VITALS: BP 103/76
== END 2025-05-09 09:06 | disposition home or self-care (01) ==
LOC: EN 06:19 → AC 06:21
PROVIDERS: PCP Nurse Practitioner Family; Referring Provider Surgery; Visit Provider Surgery
PROC: 0DJD8ZZ Inspection of Lower Intestinal Tract, Via Natural or Artificial Opening Endoscopic (ICD-10-PCS; CPT 45378; principal; 2025-05-09 07:55)
DX: Z12.11 Encounter for screening for malignant neoplasm of colon (principal); K62.5 Hemorrhage of anus and rectum; E78.5 Hyperlipidemia, unspecified; Z86.0100 Personal history of colon polyps, unspecified; F17.290 Nicotine dependence, other tobacco product, uncomplicated
CPT/HCPCS: 45385; 88305

== ENCOUNTER → 2025-06-28 | Outpatient (CLI) | payer BC, SELFPAY ==
--- NOTE | 2025-06-28 08:30 | BI_ITS ---
EXAM: SCRN MAMM (CAD)W/CHRISTOPHER BILAT DATE: 06/28/2025 CLINICAL HISTORY: F, Age 50 y/o , SCREENING MAMMOGRAM FOR BREAST CANCER TECHNIQUE: SCRN MAMM (CAD)W/CHRISTOPHER BILAT COMPARISON: Prior exam(s) dated 06/25/2024, 06/23/2023, 05/28/2022. FINDINGS: TISSUE DENSITY: There are scattered areas of fibroglandular density. Bilateral Breast Mammographic Findings: No significant masses, calcifications or other abnormalities are identified. BI/SCRN MAMM (CAD)W/CHRISTOPHER BILAT IMPRESSION: There is no mammographic evidence of malignancy. OVERALL FINAL ASSESSMENT BI-RADS 1: NEGATIVE. RECOMMENDATION: Routine annual follow-up in 1 Year A letter with findings and recommendations will be mailed to the patient. Reading Location: [id number]
== END | disposition home or self-care (01) ==
LOC: OPBI 08:28
PROVIDERS: PCP Nurse Practitioner Family; Referring Provider Registered Nurse; Visit Provider Registered Nurse
DX: Z12.31 Encounter for screening mammogram for malignant neoplasm of breast (principal)
CPT/HCPCS: 77063; 77067

== ENCOUNTER → 2025-10-04 | Outpatient (CLI) | payer BC, SELFPAY ==
--- OUTSIDE RECORDS SUMMARY | 2025-10-04 06:20 | XMS RPT_ITS | CCD ---
Author Organization [facility] Care Team Providers Care Noodle Press Operator Name Role Phone CHAYITORAFATER, JULIO CESAR APRIL Unavailable Unavailab ellie TRINI WAYNE Unavailable Unavailable HARPSTER, JULIO CESAR APRIL Unavailable Unavailab le HARPSTER, JULIO CESAR APRIL Unavailable Unavailab Jey Burgess Attending Unavailable [place], Julio Cesar April Primary Care Unavailab le [place], Julio Cesar April Attending Unavailab le [place], Julio Cesar April Primary Care Unavailab le [place], Julio Cesar April Admitting Unavailab le [place], Julio Cesar April Attending Unavailab le [place], Julio Cesar April Primary Care Unavailab le [place], Julio Cesar April Admitting Unavailab le [place], Julio Cesar April Primary Care Unavailab le Ivanauskas, Saulius Admitting Unavailable Ivanauskas, Saulius Attending Unavailable [place], Julio Cesar April Attending Unavailab le [place], Julio Cesar April Primary Care Unavailab le [place], Julio Cesar April Admitting Unavailab le Brent Lagunas A Consulting [place], Julio Cesar April Admitting Unavailab le [place], Julio Cesar April Attending Unavailab le [place], Julio Cesar April Primary Care Unavailab Brent Santoro A Attending Unavailable [place], Julio Cesar April Primary Care Unavailab le [place], Julio Cesar J Unavailable Unavailable Unavailable Carlos RUG DYER HELPER, RUG DYER HELPER-C Julio Cesar Primary Care Provider Carlos RUG DYER HELPER, RUG DYER HELPER-C Julio Cesar Referring Provider [phone] Dr. Sonja Landaverde Attending Provider [phone] Mallory Lewis Attending Provider Unavailable Dr. Roge Sarkar Attending Provider Dr. Roge Sarkar Other Provider Dr. Sonja Landaverde Primary Care Provider [phone] Dr. Sonja Landaverde Referring Provider [phone] Julio Cesar Gonzalez Unavailable Kerry Hardy Unavailable Unavailable Carlos, Ms. Regan Parisa Primary Care Unava florinda Gonzalez, Ms. Regan Parisa Attending Kerry Moreno Attending Unavailab ellie Gonzalez, Ms. Regan April Primary Care Danielava Dr. Sonja Peoples Primary Care Provider [phone] Dr. Sonja Landaverde Referring Provider [phone] ROSIE Grant Attending Provider NO, PHYSICIAN Primary Care Unavailable VENKAT HUDDLESTON Attending Unavaila Dr. Sonja Sarmiento MD Referring Provider [phone] Ladonna Grant CNM Attending Provider Neto Harris MD Primary Care Provider [place] RUG DYER HELPER-C, Spencer Primary Care Provider [place] RUG DYER HELPER-C, Spencer Attending Provider [place] RUG DYER HELPER-C, Spencer Referring Provider Dr. Roge Sarkar MD Attending Provider Dr. Roge Sarkar MD Referring Provider Dr. Roge Sarkar MD Other Provider [place] RUG DYER HELPER-C, Spencer Primary Care Provider Ladonna Grant CNM Attending Provider Ladonna Grant CNM Referring Provider Matti RUG DYER HELPER-C, Spencer Primary Care Physician Dr. Roge Sarkar MD Attending Physician Dr. Roge Sarkar MD Nurse Practitioner Ladonna Grant CNM Attending Physician [phone] [place] RUG DYER HELPER-C, Spencer Referring Provider [phone] Roxanne YO, Dr. Pineda Attending Physician [phone] Ladonna Grant Attending Unavailable Ladonna Grant Referring Unavailable [place] VSC, Spencer Primary Care Unavailable Edwin Oliveira Attending Unavailable Soto Oliveiraril Referring Unavailable [place] VSC, Spencer Primary Care Unavailable Ladonna Grant Attending Unavailable Sonja Landaverde Referring Unavailable Kimberly, Neto Primary Care Unavailable Roge Sarkar Attending Unavailable [place] VSC, Spencer Referring Unavailable [place] VSC, Spencer Primary Care Unavailable Roge Sarkar Attending Unavailable Roge Sarkar Referring Unavailable [place] VSC, Spencer Primary Care Unavailable Roge Sarkar Consulting Unavailable Edwin Oliveira Attending Unavailable [place] VSC, Spencer Referring Unavailable [place] VSC, Spencer Primary Care Unavailable Roge Sarkar Attending Unavailable [place] VSC, Spencer Primary Care Unavailable Roge Sarkar Referring Unavailable [place] VSC, Spencer Attending Unavailable [place] VSC, Spencer Primary Care Unavailable Allergies Allergy Classification Reported Allergen(s) Allergy Type Date of Onset Reaction(s) Facility (16 sources) codeine; Translations: [CODEINE] Drug Allergy 7 Other [facility] Repository (12 sources) Sulfonamides (Antibiotic); Translations: [SULFA (SULFONAMIDE ANTIBIOTICS)] Propensity to adverse reactions to drug (disorder) 7 Other [facility] Repository (4 sources) Sulfonamides (Antibiotic); Translations: [sulfa drugs] Propensity to adverse reactions to drug (disorder) [facility] Repository (1 source) Wbkmies-Hgh-Uiv Reductase Inhibitor Propensity to adverse reactions 5 Myalgias [facility] (1 source) Ueutoaa-Bpy-Hba Reductase Inhibitor Drug allergy (disorder) 5 [facility] Repository Medications Current Medications Medication Drug Class(es) Dates Sig (Normalized) Sig (Original) cholecalciferol 0.025 mg oral capsule (4 sources) Vitamin D Start: 04-30-2025 take 1 capsule by mouth once daily Cholecalciferol (Vitamin D3) 25 mcg (1,000 unit) capsule Active 25 ug PO daily April 30, 2025 12:00am Complies with drug therapy Completed/Discontinued Medications Medication Drug Class(es) Dates Sig (Normalized) Sig (Original) acetaminophen 325 mg / oxyCODONE hydrochloride 5 mg oral tablet (9 sources) Opioid Agonist Start: 06-21-2019 End: 06-30-2019 Oxycodone-Acetaminoph en 1 TABLET tablet Discontinued 1 - 2 {tbl} PO EVERY 4 HOURS NEEDED as needed for Pain 15 7 0 June 21, 2019 June 27, 2019 12:00am June 30, 2019 12:08am Other acute postprocedural pain Start: 06-21-2019 End: 06-30-2019 take 1 tablet by mouth every four hours as needed Oxycodone-Acetaminophen Discontinued 1 - 2 TABLET PO EVERY 4 HOURS NEEDED 15 7 June 21, 2019 June 30, 2019 12:08am aspirin 81 mg chewable tablet (17 sources) Platelet Aggregation Inhibitor, Nonsteroidal Anti-inflammatory Drug Start: 03-15-2022 End: 04-30-2025 take 1 tablet by mouth once daily Aspirin (Aspirin Childrens) 81 mg tablet,chewable Discontinued 81 mg PO DAILY 90 0 November 09, 2022 1:59pm April 30, 2025 9:33am Start: 09-29-2021 take 1 tablet by zoran th once daily Aspirin 81 MG Oral Tablet Chewable Take 1 tablet daily Quantity: 30 Refills: 11 Ordered: 29-Sep-2021 Julio Cesar Mathew Start : 29-Sep-2021 Active atorvastatin 20 mg oral tablet (20 sources) HMG-CoA Reductase Inhibitor Start: 03-15-2022 End: 04-30-2025 take 1 tablet by mouth at bedtime Atorvastatin 20 mg tablet Discontinued 20 mg PO AT BEDTIME 90 0 January 12, 2023 3:19pm April 30, 2025 9:33am Start: 09-29-2021 take 1 tablet by zoran th at bedtime Atorvastatin Calcium 20 MG Oral Tablet TAKE 1 TABLET AT BEDTIME. Quantity: 90 Refills: 3 Ordered: 29-Sep-2021 Julio Cesar Mathew Start : 29-Sep-2021 Active atorvastatin Cali ntity: 0 Refills: 0 Ordered: 25-Sep-2022 Vidal Andrade Generic Substitution Allowed naproxen 250 mg oral tablet (9 sources) Nonsteroidal Anti-inflammatory Drug Start: 06-21-2019 End: 07-09-2019 take 250-500 mg by mouth every eight hours as needed for pain Naproxen 250 MG tablet Discontinued 250 - 500 mg PO EVERY 8 HOURS NEEDED as needed for MILD PAIN 30 June 21, 2019 12:00am July 09, 2019 1:49pm omeprazole 40 mg delayed release oral capsule (9 sources) Proton Pump Inhibitor Start: 03-14-2019 End: [...] Discontinued 500 mg PO TWICE A DAY 6 February 22, 2022 11:26am June 08, 2022 12:12pm Problems Active Problems Problem Classification Problem Date Documented Da te Episodic/Chronic Abdominal hernia (1 source) Hiatal hernia; Translations: [Diaphragmatic hernia without mention of obstruction or gangrene] Episodic Administrative/social admission (6 sources) Persons encountering health services in other specified circumstances; Translations: [Other reasons for seeking consultation] Episodic Benign neoplasm of uterus (9 sources) Uterine leiomyoma; Translations: [Leiomyoma of uterus, unspecified] 08-26-2021 Episodic Comment on above: [facility]ie [facility]. Conditions associated with dizziness or vertigo (2 sources) Dizziness and giddiness; Translations: [Dizziness and giddiness] Onset: 07-18-2024 Episodic Coronary atherosclerosis and other heart disease (2 sources) Coronary arteriosclerosis; Translations: [Coronary atherosclerosis of unspecified type of vessel, ugashik or graft] Onset: 09-30-2025 Chronic Disorders of lipid metabolism (15 sources) Hyperlipidemia; Translations: [Other and unspecified hyperlipidemia] Onset: 09-04-2025 Chronic Endometriosis (9 sources) Endometriosis (clinical); Translations: [Endometriosis, unspecified] 08-26-2021 Chronic Comment on above: depot lupron discuss ed if persistent dyspareunia. seen at hysterectomy stage III, all scar tissue removed Gastrointestinal hemorrhage (5 sources) Rectal hemorrhage; Translations: [Hemorrhage of anus and rectum] 04-30-2025 Episodic Comment on above: Patient is a 50-year -old female who makes office visit related to recent experience of what she has taken to be painless bleeding per rectum. She denies a history that would be consistent with a hemorrhoid source for this bleeding and now confirms that the bleeding appears spontaneously resolved. While I take that to be encouraging, I find it necessary to investigate further since it has been over 2 years since her last colonoscopy and she is otherwise due for surveillance colonoscopy given her history with serrated adenoma found at her index scope. She is advised of this recommendation and confirmed her agreement. Genitourinary symptoms and ill-defined conditions (9 sources) Genuine stress incontinence; Translations: [Stress incontinence (female) (male)] 06-21-2019 Chronic Comment on above: urogyn consult with [facility] pelvic floor physical therapy Miscellaneous mental health disorders (3 sources) Adjustment insomnia; Translations: [Transient disorder of initiating or maintaining sleep] Episodic Nutritional deficiencies (1 source) Serum iron low; Translations: [Iron deficiency] 08-01-2025 Episodic Other and unspecified benign neoplasm (5 sources) History of polyp of colon; Translations: [History of adenomatous and serrated colon polyps] 04-30-2025 Episodic Comment on above: Subcentimeter serrat ed adenoma of the rectum found at 15 cm with patient's prior colonoscopy completed May 2022. Other bone disease and musculoskeletal deformities (3 [...] conditions (not mental disorders or infectious disease) (6 sources) Ultrasound scan abnormal; Translations: [Abnormal findings on diagnostic imaging of other specified body structures] 06-23-2023 Chronic Other screening for suspected conditions (not mental disorders or infectious disease) (20 sources) Patient encounter status; Translations: [Screening for other and unspecified cardiovascular conditions] Onset: 05-20-2025 Episodic Other skin disorders (3 sources) Night sweats; [...] source) Eustachian tube dysfunction 09-25-2022 Viral infection (9 sources) Herpes simplex; Translations: [Herpesviral infection, unspecified] 03-15-2022 Episodic Past or Other Problems Problem Classification Problem Date Documented Da te Episodic/Chronic Nonspecific chest pain (4 sources) Chest discomfort; Translations: [Other chest pain] Onset: 10-30-2021 Episodic Other and unspecified benign neoplasm (2 sources) Other benign neoplasm of skin of right upper limb, including shoulder; Translations: [Other benign neoplasm of skin of right upper limb, including shoulder] Onset: 09-07-2017 Episodic Other circulatory disease (2 sources) Nevus, non-neoplastic; Translations: [Nevus, non-neoplastic] Onset: 09-07-2017 Episodic Other skin disorders (2 sources) Actinic keratosis; Translations: [Actinic keratosis] Onset: 09-07-2017 Episodic Residual codes; unclassified (3 sources) Past history of procedure; Translations: [Other specified personal history presenting hazards to health] Onset: 04-25-2020 Episodic Comment on above: [facility]; Results Test Name Value Interpretation Reference Range Facility Cardiology Visit Reporton Cardiology Visit Report [facility] [address] [place] [address] OFFICE VISIT Date of Service: 09/04/25 MR#: [id number] Acct: [id number] Name: DARLENE RODRIGUEZ Rep #: [id number] : 1975 Provider: Dr. Edwin Oliveira MD Age/Sex: 50/F [place] [facility] [place] Status: Signed HPI HPI History of Present Illness Details: HPI: The patient is a 50-year-old female with a history of elevated coronary artery calcium score and hypercholesterolemia, presenting for evaluation and management. Approximately five years ago, at age 45, the patient underwent a coronary artery calcium score screening, which revealed a 40% blockage in one of her arteries. She was advised to start statin therapy but experienced significant myalgias, particularly in her legs, which impaired her ability to ambulate in the mornings. She attempted to take statins three times a week as per her clinician's recommendation, but the myalgias persisted, leading to discontinuation of the medication. Her coronary calcium score at that time was noted to be 258 with a score of 191 in the LAD and 67 in the left circumflex artery. She denies any family history of heart disease and is not currently on antihypertensive medications. Her most recent total cholesterol level was 204 mg/dL, HDL was 49 and her LDL was 105, and her blood pressure is 105 mmHg. She does not have a history of diabetes mellitus. Her physical exam is unremarkable. She has a history of mild narcolepsy, diagnosed around the same time as her initial calcium score screening. She is a current smoker and has transitioned to vaping. She works at [employer] She has grown children and grandchildren. Intake Vital Signs 05/09/25 07:07 09/04/25 13:47 Height 5 ft 1 in 5 ft 1 in Weight: 127 lb BMI 24.0 BP 105/76 Blood Pressure Location Lt brachial Position Sitting Respiration 16 Pulse 78 Pulse Source Monitor Intake Visit Reasons: EST/FAMILY HX (AMPARO) Fruit Buyer Required: No Accompanied by: Self Is patient in pain?: No Allergies codeine Allergy (Mild, Verified 09/04/25 13:55) Other Sulfa (Sulfonamide Antibiotics) Allergy (Mild, Verified 09/04/25 13:55) Other Flzxymf-NPK-WoX Reductase Inhibitor Adverse Reaction (Severe, Verified 09/04/25 13:55) Myalgias Medications ???Medication ???Instructions ???Recorded ???Confirmed ???Type valacyclovir 500 mg tablet 500 mg PO BID #30 tabs 11/10/22 Rx (Valtrex) cholecalciferol (vitamin D3) 25 25 mcg PO QDAY 04/30/25 09/04/25 H istory mcg (1,000 unit) capsule [facility] Medical History Low iron Herpes Hyperlipidemia Surgical History History of LAVH [...] social history: - [employer] ROS Const Const: Negative for fatigue, weakness, daytime sleepiness or difficulty sleeping ENT ENT: Negative for dizziness or Nosebleed/epistaxis Cardio Chest Pain: No Palpitations: Yes feels like its: fast Edema: None Resp Respiratory: Negative for SOB with activity, SOB at rest, SOB orthopnea SOB lying down or Cough GI GI: Negative nausea, vomiting or heartburn Neuro Neuro: Negative for dizziness, lightheadedness, near syncope or weakness Endo Endo: Negative for fatigue Cardiology Exam Const Appearance: cooperative, healthy appearing, no acute distress, well developed and well groomed Nutritional Appearance: average body habitus and well nourished Orientation: alert, awake and oriented x3 Head Head: normal to inspection, normocephalic and atraumatic Ears: hearing grossly normal bilaterally and external ears normal Nose: external nose normal, nares normal, nasal mucous membranes and turbinates normal, septum normal and no nasal discharge Face and Sinus: face symmetric Mouth: oral mucosae normal, tongue normal, oropharynx normal and moist mucous membranes Teeth and gingiva: dentition normal Throat: posterior oropharynx normal, tonsils normal and uvula midline Eyes General: appearance normal, both eyes and all related structur (more content not included)... Normal [facility] Breast imaging reportOrdered By: Nidia Ortiz on 06-28-2025 Study report [facility] Imaging Services [address] [place], [place] [address] SCRN MAMM (CAD)W/CHRISTOPHER BILAT MR#: [id number] Acct: [id number] Name: DARLENE RODRIGUEZ Rep #: [id number] : 1975 F 50 From: Amanda Ortiz MD PCP: [facility] [place] Status: [facility] CLI Study:SCRN MAMM (CAD)W/CHRISTOPHER BILAT Date of Exa m: 06/28/25 Exam# [id number] Ordering Dr: Ladonna Grant CNM EXAM: SCRN MAMM (CAD)W/CHRISTOPHER BILAT DATE: 06/28/2025 CLINICAL HISTORY: F, Age 50 y/o , SCREENING MAMMOGRAM FOR BREAST CANCER TECHNIQUE: SCRN MAMM (CAD)W/CHRISTOPHER BILAT COMPARISON: Prior exam(s) dated 06/25/2024, 06/23/2023, 05/28/2022. FINDINGS: TISSUE DENSITY: There are scattered areas of fibroglandular density. Bilateral Breast Mammographic Findings: No significant masses, calcifications or other abnormalities are identified. BI/SCRN MAMM (CAD)W/CHRISTOPHER BILAT IMPRESSION: There is no mammographic evidence of malignancy. OVERALL FINAL ASSESSMENT BI-RADS 1: NEGATIVE. RECOMMENDATION: Routine annual follow-up in 1 Year A letter with findings and recommendations will be mailed to the patient. Reading Location: [facility] CC: ROSIE Grant; KAITY [place] ~ Marketing Consultant: Signed [facility] SCRN MAMM (CAD)W/CHRISTOPHER BILATo n 06-28-2025 SCRN MAMM (CAD)W/HCRISTOPHER BILAT [facility] Imaging Services [address] [place], [place] [id number] SCRN MAMM (CAD)W/CHRISTOPHER BILAT MR#: [id number] Acct: [id number] Name: IESHATORIDARLENE MALDONADON Rep #: [id number] : 1975 F 50 From: Nidia Ortiz MD PCP: [facility] [place] Status: REG [facility] Study: SCRN MAMM (CAD)W/CHRISTOPHER BILAT Date of Exam: 12/22 Exam# [id number] Ordering Dr: Ladonna Grant CNM EXAM: SCRN MAMM (CAD)W/CHRISTOPHER BILAT DATE: 06/28/2025 CLINICAL HISTORY: F, Age 50 y/o , SCREENING MAMMOGRAM FOR BREAST CANCER TECHNIQUE: SCRN MAMM (CAD)W/CHRISTOPHER BILAT COMPARISON: Prior exam(s) dated 06/25/2024, 06/23/2023, 05/28/2022. FINDINGS: TISSUE DENSITY: There are scattered areas of fibroglandular density. Bilateral Breast Mammographic Findings: No significant masses, calcifications or other abnormalities are identified. BI/SCRN MAMM (CAD)W/CHRISTOPHER BILAT IMPRESSION: There is no mammographic evidence of malignancy. OVERALL FINAL ASSESSMENT BI-RADS 1: NEGATIVE. RECOMMENDATION: Routine annual follow-up in 1 Year A letter with findings and recommendations will be mailed to the patient. Reading Location: [facility] CC: ROSIE Grant; KAITY [place] Marketing Consultant: Signed Normal [facility] Colonoscopy Reporton 025 Colonoscopy Report [facility] Medical Records Department [address] [place] [address] Colonoscopy Report MR#: [id number] Acct: [id number] Name: DARLENE RODRIGUEZ Rep #: [id number] : 1975 50 From: Roge Sarkar MD PCP: [facility] [place] Status:[place] [facility] [place] Patient Name: Darlene Rodriguez Procedure Date: 05/09/2025 7:48 AM Date of : 1975 Age: 50 Procedure: Colonoscopy Indications: High risk colon cancer surveillance: Personal history of sessile serrated colon polyp (less than 10 mm in size) with no dysplasia Providers: Roge Sarkar MD Referring MD: Roge Sarkar MD Medicines: See the Anesthesia note for documentation of the administered medications Patient Profile: Last Colonoscopy: 3 years ago. Complications: No immediate complications. Estimated blood loss: None. Procedure: Pre-Anesthesia Assessment: - The heart rate, respiratory rate, oxygen saturations, blood pressure, adequacy of pulmonary ventilation, and response to care were monitored throughout the procedure. After I obtained informed consent, the scope was passed under direct vision. Throughout the procedure, the patient's blood pressure, pulse, and oxygen saturations were monitored continuously. The Colonoscope was introduced through the anus and advanced to the cecum, identified by transillumination. The colonoscopy was performed without difficulty. The patient tolerated the procedure well. The quality of the bowel preparation was adequate to identify polyps greater than 5 mm in size. Scope In: 8:10:27 AM Scope Withdrawal Time 0 hours 7 minutes 50 seconds Scope Out: 8:33:48 AM Total Procedure Duration Time 0 hours 23 minutes 21 seconds Findings: The perianal and digital rectal examinations were normal. A 10 mm polyp was found in the rectum. The polyp was semi-sessile. The polyp was removed with a hot snare. Resection and retrieval were complete. Estimated blood loss: none. The exam was otherwise without abnormality on direct and retroflexion views. Impression: - One 10 mm polyp in the rectum, removed with a hot snare. Resected and retrieved. - The examination was otherwise normal on direct and retroflexion views. Recommendation: - Discharge patient to home (via wheelchair). - Resume previous diet today. - No aspirin, ibuprofen, naproxen, or other non-steroidal anti-inflammatory drugs for 2 days after polyp removal. - Await pathology results. - Repeat colonoscopy date to be determined after pending pathology results are reviewed for surveillance based on pathology results. - Telephone my office for pathology results in 1 week. Procedure Code(s): --- Professional --- 09959, Colonoscopy, flexible; with removal of tumor(s), polyp(s), or other lesion(s) by snare technique Diagnosis Code(s): --- Professional --- Z86.010, Personal history of colonic polyps D12.8, Benign neoplasm of rectum CPT copyright 2021 [employer]. All rights reserved. The codes documented in this report are preliminary and upon visual coordinator review may be revised to meet current compliance requirements. Roge Sarkar MD 05/09/2025 8:44:06 AM This report has been signed electronically. Number of Addenda: 0 Note Initiated On: 05/09/2025 7:48 AM 05/09/25843 Date Roge Reyes Signature: Date (if indicated) CC: RUG DYER HELPER-C Spencer Chino; Dr. Roge Sarkar MD Date Dictated: 05/09/25747 Date Transcribed: Marketing Consultant: JESUS Hennessy [facility] MR/POSTOP.[facility] 05-09-2025 MR/POSTOP.[facility] Medical Records Department [address] [place] [address] Anesthesia Postop Eval I 05/09/25839 MR#: [id number] Acct: [id number] Name: DARLENE RODRIGUEZ Rep #: [id number] : 1975 50 From: Steven Agrawal WELDER APPRENTICE GAS PCP: [facility] [place] Status:REG [facility] Y Race: C Location: [place] [address] Anesthesia: Postop Eval I Current Vital Signs Temperature: 97.9 F Pulse Rate: 82 Blood Pressure: 100/71 Respiratory Rate: 18 Pulse Ox: 100 Assessment Airway patent: Yes Spontaneous unlabored respirations: Yes nausea: No Vomiting: No Anesthesia Complication: No Fluid Hydration Crystalloid volume administer (ml): 450 Total IV fluid infused: 450 Progress Note Anesthesia document: Postop Eval 1 completed: Yes 05/09/25840 Date Steven Nghia WELDER APPRENTICE GAS Cosigner Signature: Date CC: Signed Normal [facility] MR/[id number] 05-09-2025 MR/POSTOPAN2 [facility] Medical Records Department [address] [place] [address] Anesthesia Postop Eval II 05/09/2557 MR#: [id number] Acct: [id number] Name: DARLENE RODRIGUEZ Rep #: [id number] : 1975 50 From: Klever Barreto MD PCP: [facility]C Status:REG [facility] [place] Y Race: C Location: [place] [address] Anesthesia Postop Eval I Sum Postop Eval Completion status Anesthesia document: Postop Eval 1 completed: Yes Anesthesia Postop Eval I Summary Anesthesia Postop Eval I Summary: Anesthesia Postop Eval I: Assessment Summary Airway patent Yes 05/09/25 08:40 WELDER APPRENTICE GAS.DMAY Spontaneous unlabored Yes 05/09/25 08:40 [employer]DMAY respirations Mental status nausea No 05/09/25 08:40 [employer]DMAY Vomiting No 05/09/25 08:40 [employer]DMAY Anesthesia Postop Eval I: Fluid Summary Crystalloid volume administer 450 05/09/25 08:40 [employer] G[employer].DMAY (ml) Colloids volume administered ( ml) Blood Product volume administered (ml) Total IV fluid infused 450 05/09/25 08:40 [employer]DMAY Anesthesia Postop Eval I: Summary Notes Anesthesia Complication No 05/09/25 08:40 [employer]DMAY Anesthesia Complication Comment: Post-operative progress note Anesthesia: Postop Eval II Evaluation Mental status: Awake Pain Level: 0 nausea: No Vomiting: No 05/09/25856 Date Klever Barreto MD Cosigner Signature: Date CC: Signed Normal [facility] Surgery Specimen Level Idania 05-09-2025 Surgery Specimen Level IV -------- Patient Age/Sex Location Account Attending Physician -------- DARLENE RODRIGUEZ 50/F EN [id number] Dr. Roge Sarkar MD -------- Specimen: [id number] Received: 05/09/25-1253 Status: ISABEL Valdovinososcar Num: [id number] Spec Type: COLON BX Subm Dr: Dr. Roge Sarkar MD HEADER OPERATION: Colonoscopy with polypectomy PRE-OP DIAGNOSIS: Blood per rectum, personal history of adenomatous and serrated colon polyps TISSUE SUBMITTED: A- Rectal polyp -------- MICROSCOPIC DIAGNOSIS A. Rectum, polyp, biopsy: * Benign polyp with marked cautery artifact - see note. * Note: Marked cautery artifact limits the assessment (deeper sections examined). The findings are suggestive of a hyperplastic polyp, however a tubular adenoma cannot be ruled out. MICROSCOPIC DESCRIPTION Slides are reviewed. GROSS DESCRIPTION A. Received in formalin labeled with the patient's name and date of . Designated as rectal polyp is a 0.4 cm danielle tissue fragment. Entirely submitted 1 cassette. [facility] 05/09/2025 [facility]:[id number] -------- Patient Age/Sex Location Account Attending Physician -------- DARLENE RODRIGUEZ 50/F EN [id number] Dr. Roge Sarkar MD -------- Signed (signature on file) Dr. Julio Cesar Kruger MD 05/17/25 1322 -------- Normal [facility] Comment on above: Performed By: #### P SUIV ####[facility] [address] [place], [address] Surgery Visit Reporton 04-30 Surgery Visit Report [facility] [address] [place] [address] OFFICE VISIT Date of Service: 04/30/25 MR#: [id number] Acct: [id number] Name: DARLENE RODRIGUEZ Rep #: [id number] : 1975 Provider: Dr. Roge rivera MD Age/Sex: 50/F Location: [facility] Status: Signed Intake Vital Signs 12/28/24 08:08 [...] thinners. Relevant prior abdominal surgical history includes: [facility] Patient does not have a significant history [...] hemorrhoids, N (more content not included)... Normal [facility] Absolute lymphocyte countOrd ered By: Spencer Chino on 01-23-2025 Lymphocytes Auto (Unsp spec) [#/Vol] 1.92 10*3/uL 0.83-4.51 [facility] Absolute neutrophil countOrd ered By: Spencer Chino on 01-23-2025 Neutrophils (Bld) [#/Vol] 3.5 10*3/uL 2.0-7.7 [facility] Automated lymphocyte count a s percentage of total leukocytesOrdered By: Spencer Chino on 01-23-2025 Lymphocytes/100 WBC Auto (Unsp spec) 30.7 % 19-41 [facility] BUN/creatinine ratioOrdered By: Spencer Chino on 01-23-2025 Urea nitrogen/Creatinine [Mass ratio] 21.1 mg/mg High 10-20 [facility] Basophil percentageOrdered B y: Spencer Chino on 01-23-2025 Basophils/100 WBC (Bld) 0.8 % 0-1 [facility] Bilirubin, totalOrdered By: Spencer Chino on 01-23-2025 Bilirubin [Mass/Vol] 0.42 mg/dL 0.00-1.30 [facility] CBC W/Diff, Automatedon 12-30 Absolute Lymph 1.92 X10 3/uL Normal 0.83-4.51 [facility] Comment on above: Performed By: #### L 501.9985, L501.9520, L500.4050, L500.4100, L100.0100, L506.1001, L503.0106 #### [facility] [address] [place], [address] Absolute Neut 3.5 X10 3/uL Normal 2.0-7.7 [facility] Comment on above: Performed By: #### L 501.9985, L501.9520, L500.4050, L500.4100, L100.0100, L506.1001, L503.0106 #### [facility] [address] [place], [address] Basophils/100 WBC (Bld) 0.8 % Normal 0-1 [facility] Comment on above: Performed By: #### L 501.9985, L501.9520, L500.4050, L500.4100, L100.0100, L506.1001, L503.0106 #### [facility] [address] [place], [address] Eosinophils/100 WBC (Bld) 4.2 % Normal 0-5 [facility] Comment on above: Performed By: #### L 501.9985, L501.9520, L500.4050, L500.4100, L100.0100, L506.1001, L503.0106 #### [facility] [address] [place], [address] Erythrocyte distribution width (RBC) [Ratio] 13.4 % Normal 11.6-14.6 [facility] Comment on above: Performed By: #### L 501.9985, L501.9520, L500.4050, L500.4100, L100.0100, L506.1001, L503.0106 #### [facility] [address] [place], [address] Hematocrit (Bld) [Volume fraction] 42.9 % Normal 37-47 [facility] Comment on above: Performed By: #### L 501.9985, L501.9520, L500.4050, L500.4100, L100.0100, L506.1001, L503.0106 #### [facility] [address] [place], [address] Hemoglobin (Bld) [Mass/Vol] 14.2 g/dL Normal 12.0-15.0 [facility] Comment on above: Performed By: #### L 501.9985, L501.9520, L500.4050, L500.4100, L100.0100, L506.1001, L503.0106 #### [facility] [address] [place], [address] IG% 0.300 Normal 0.0-0.9 [facility] Comment on above: Result Comment: IG% - Immature Granulocytes (promyelocytes, myelocytes and metamyelocytes) > 1% indicates that a LEFT SHIFT is Present. Performed By: #### L 501.9985, L501.9520, L500.4050, L500.4100, L100.0100, L506.1001, L503.0106 #### [facility] [address] [place], [address] Lymphocytes/100 WBC (Bld) 30.7 % Normal 19-41 [facility] Comment on above: Performed By: #### L 501.9985, L501.9520, L500.4050, L500.4100, L100.0100, L506.1001, L503.0106 #### [facility] [address] [place], [address] MCH (RBC) [Entitic mass] 29.2 pg Normal 27.0-32.0 [facility] Comment on above: Performed By: #### L 501.9985, L501.9520, L500.4050, L500.4100, L100.0100, L506.1001, L503.0106 #### [facility] [address] [place], [address] MCHC (RBC) [Mass/Vol] 33.1 g/dL Normal 32-36 [facility] Comment on above: Performed By: #### L 501.9985, L501.9520, L500.4050, L500.4100, L100.0100, L506.1001, L503.0106 #### [facility] [address] [place], [address] MCV (RBC) [Entitic vol] 88.1 fL Normal 81-99 [facility] Comment on above: Performed By: #### L 501.9985, L501.9520, L500.4050, L500.4100, L100.0100, L506.1001, L503.0106 #### [facility] [address] [place], [address] Monocytes/100 WBC (Bld) 8.6 % Normal 0-10 [facility] Comment on above: Performed By: #### L 501.9985, L501.9520, L500.4050, L500.4100, L100.0100, L506.1001, L503.0106 #### [facility] [address] [place], [address] Neutrophils/100 WBC (Bld) 55.4 % Normal 47-70 [facility] Comment on above: Performed By: #### L 501.9985, L501.9520, L500.4050, L500.4100, L100.0100, L506.1001, L503.0106 #### [facility] [address] [place], [address] Nucleated RBC (Bld) [#/Vol] 0 10*3/uL Normal 0-5 [facility] Comment on above: Performed By: #### L 501.9985, L501.9520, L500.4050, L500.4100, L100.0100, L506.1001, L503.0106 #### [facility] [address] [place], [address] Platelet mean volume (Bld) [Entitic vol] 11.1 fL Normal 6.2-12.0 [facility] Comment on above: Performed By: #### L 501.9985, L501.9520, L500.4050, L500.4100, L100.0100, L506.1001, L503.0106 #### [facility] [address] [place], [address] Platelets (Bld) [#/Vol] 210 10*3/uL Normal 150-450 [facility] Comment on above: Performed By: #### L 501.9985, L501.9520, L500.4050, L500.4100, L100.0100, L506.1001, L503.0106 #### [facility] [address] [place], [address] RBC (Bld) [#/Vol] 4.87 10*6/uL Normal 4.2-5.4 [facility] Comment on above: Performed By: #### L 501.9985, L501.9520, L500.4050, L500.4100, L100.0100, L506.1001, L503.0106 #### [facility] [address] [place], [address] RDW SD 43.0 fl Normal 35.1-43.9 [facility] Comment on above: Performed By: #### L 501.9985, L501.9520, L500.4050, L500.4100, L100.0100, L506.1001, L503.0106 #### [facility] [address] [place], [address] WBC (Bld) [#/Vol] 6.3 10*3/uL Normal 4.4-11.0 [facility] Comment on above: Performed By: #### L 501.9985, L501.9520, L500.4050, L500.4100, L100.0100, L506.1001, L503.0106 #### [facility] [address] [place], [place], [id number] Calculated very low density lipoprotein (VLDL) cholesterol measurementOrdered By: Spencer Chino on 01-23-2025 Calculated very low density lipoprotein (VLDL) cholesterol measurement 50 mg/dL High 5-40 [facility] VLDL Cholesterol 50 mg/dL High 5-40 [facility] Carbon dioxide measurementOr dered By: Spencer Chino on 01-23-2025 CO2 [Moles/Vol] 23.7 mmol/L 22.0-29.0 [facility] Chloride measurementOrdered By: Spencer Chino on 01-23-2025 Chloride [Moles/Vol] 104 mmol/L 96-108 [facility] Comprehensive Metabolic Prof ilon 01-23-2025 Albumin [Mass/Vol] 4.7 g/dL Normal 3.5-5.0 [facility] Comment on above: Performed By: #### L 501.9985, L501.9520, L500.4050, L500.4100, L100.0100, L506.1001, L503.0106 ####[facility] [address] [place], [place], [id number] Albumin/Globulin [Mass ratio] 1.8 {ratio} Normal 0.9-2.4 [facility] Comment on above: Performed By: #### L 501.9985, L501.9520, L500.4050, L500.4100, L100.0100, L506.1001, L503.0106 ####[facility] [address] [place], [address] ALK PHOS 78 U/L Normal 35-104 [facility] Comment on above: Performed By: #### L 501.9985, L501.9520, L500.4050, L500.4100, L100.0100, L506.1001, L503.0106 ####[facility] [address] [place], [address] ALT [Catalytic activity/Vol] 15 U/L Normal <=34 [facility] Comment on above: Performed By: #### L 501.9985, L501.9520, L500.4050, L500.4100, L100.0100, L506.1001, L503.0106 ####[facility] [address] [place], [address] Anion gap [Moles/Vol] 12 mmol/L Normal 5-15 [facility] Comment on above: Performed By: #### L 501.9985, L501.9520, L500.4050, L500.4100, L100.0100, L506.1001, L503.0106 ####[facility] [address] [place], [place], [phone] AST [Catalytic activity/Vol] 18 U/L Normal <=31 [facility] Comment on above: Performed By: #### L 501.9985, L501.9520, L500.4050, L500.4100, L100.0100, L506.1001, L503.0106 ####[facility] [address] [place], [place], [phone] Bilirubin [Mass/Vol] 0.42 mg/dL Normal 0.00-1.30 [facility] Comment on above: Performed By: #### L 501.9985, L501.9520, L500.4050, L500.4100, L100.0100, L506.1001, L503.0106 ####[facility] [address] [place], [address] BUN/CRE 21.1 RATIO High 10-20 [facility] Comment on above: Performed By: #### L 501.9985, L501.9520, L500.4050, L500.4100, L100.0100, L506.1001, L503.0106 ####[facility] [address] [place], [address] Calcium [Mass/Vol] 10.1 mg/dL Normal 7.6-11.0 [facility] Comment on above: Performed By: #### L 501.9985, L501.9520, L500.4050, L500.4100, L100.0100, L506.1001, L503.0106 ####[facility] [address] [place], [address] Chloride [Moles/Vol] 104 mmol/L Normal 96-108 [facility] Comment on above: Performed By: #### L 501.9985, L501.9520, L500.4050, L500.4100, L100.0100, L506.1001, L503.0106 ####[facility] [address] [place], [address] CO2 [Moles/Vol] 23.7 mmol/L Normal 22.0-29.0 [facility] Comment on above: Performed By: #### L 501.9985, L501.9520, L500.4050, L500.4100, L100.0100, L506.1001, L503.0106 ####[facility] [address] [place], [address] Creatinine [Mass/Vol] 0.7 mg/dL Normal 0.6-1.0 [facility] Comment on above: Performed By: #### L 501.9985, L501.9520, L500.4050, L500.4100, L100.0100, L506.1001, L503.0106 ####[facility] [address] [place], [address] GFR/1.73 sq M.predicted among non-blacks MDRD (S/P/Bld) [Vol rate/Area] 102 mL/min/{1.73_m2} Normal >60 [facility] Comment on above: Result Comment: mL/m in/1.73m2 CKD-EPI Creatinine Equation (2020) Performed By: #### L 501.9985, L501.9520, L500.4050, L500.4100, L100.0100, L506.1001, L503.0106 ####[facility] [address] [place], [address] Globulin (S) [Mass/Vol] 2.6 g/dL Normal 2.2-4.2 [facility] Comment on above: Performed By: #### L 501.9985, L501.9520, L500.4050, L500.4100, L100.0100, L506.1001, L503.0106 ####[facility] [address] [place], [address] Glucose [Mass/Vol] 87 mg/dL Normal 70-99 [facility] Comment on above: Performed By: #### L 501.9985, L501.9520, L500.4050, L500.4100, L100.0100, L506.1001, L503.0106 ####[facility] [address] [place], [address] Potassium [Moles/Vol] 4.2 mmol/L Normal 3.3-5.1 [facility] Comment on above: Performed By: #### L 501.9985, L501.9520, L500.4050, L500.4100, L100.0100, L506.1001, L503.0106 ####[facility] [address] [place], [address] Sodium [Moles/Vol] 141 mmol/L Normal 133-145 [facility] Comment on above: Performed By: #### L 501.9985, L501.9520, L500.4050, L500.4100, L100.0100, L506.1001, L503.0106 ####[facility] [address] [place], [place], [id number] T PROT 7.3 g/dL Normal 5.9-8.4 [facility] Comment on above: Performed By: #### L 501.9985, L501.9520, L500.4050, L500.4100, L100.0100, L506.1001, L503.0106 ####[facility] [address] [place], [place], [id number] Urea nitrogen [Mass/Vol] 15 mg/dL Normal 4-19 [facility] Comment on above: Performed By: #### L 501.9985, L501.9520, L500.4050, L500.4100, L100.0100, L506.1001, L503.0106 ####[facility] [address] [place], [place], [address] Eosinophil percentageOrdered By: Spencer Chino on 01-23-2025 Eosinophils/100 WBC (Bld) 4.2 % 0-5 [facility] Erythrocyte distribution wid th ratioOrdered By: Spencer Chino on 01-23-2025 Erythrocyte distribution width (RBC) [Ratio] 13.4 % 11.6-14.6 [facility] Erythrocyte distribution wid th standard deviationOrdered By: Spencer Chino on 01-23-2025 Erythrocyte distribution width (RBC) [Entitic vol] 43.0 fL 35.1-43.9 [facility] Erythrocyte distribution width (RBC) [Ratio] 43.0 fl 35.1-43.9 [facility] GFR/1.73 sq M.predicted suzi g non-blacks MDRD (S/P/Bld) [Vol rate/Area]Ordered By: Spencer Chino on 01-23-2025 Estimated GFR (MDRD) Non-Af Amer 102 >60 [facility] Comment on above: mL/min/1.73m2 CKD-EP I Creatinine Equation (2020) Glomerular filtration rate ( GFR) estimation/1.73 sq m using serum, plasma, or whole bOrdered By: Spencer Chino on 01-23-2025 GFR/1.73 sq M.predicted among non-blacks MDRD (S/P/Bld) [Vol rate/Area] 102 mL/min/{1.73_m2} >60 [facility] Comment on above: mL/min/1.73m2 CKD-EP I Creatinine Equation (2020) Hematocrit Auto (Bld) [Volum e fraction]Ordered By: Spencer Chino on 01-23-2025 Hematocrit (Bld) [Volume fraction] 42.9 % 37-47 [facility] Hemoglobin A1con 01-23-2025 HbA1c (Bld) [Mass fraction] 5.2 % Low <=5.6 [facility] Comment on above: Performed By: #### L 501.9985, L501.9520, L500.4050, L500.4100, L100.0100, L506.1001, L503.0106 #### [facility] [address] [place] [address]. [place], [place], [id number] Hemoglobin A1c percentageOrd ered By: Spencer Chino on 01-23-2025 HbA1c (Bld) [Mass fraction] 5.2 % Low >5.7 [facility] Hemoglobin measurementOrdere d By: Spencer Chino on 01-23-2025 Hemoglobin (Bld) [Mass/Vol] 14.2 g/dL 12.0-15.0 [facility] Immature granulocytes/100 WB C Auto (Bld)Ordered By: Spencer Chino on 01-23-2025 Immature granulocytes/100 WBC (Bld) 0.300 % 0.0-0.9 [facility] Comment on above: IG% - Immature Granu locytes (promyelocytes, myelocytes and metamyelocytes) > 1% indicates that a LEFT SHIFT is Present. L503.0106on 01-23-2025 Cobalamin (Vitamin B12) [Mass/Vol] 500 pg/mL Normal 180-914 [facility] Comment on above: Performed By: #### L 501.9985, L501.9520, L500.4050, L500.4100, L100.0100, L506.1001, L503.0106 #### [facility] [address] [place], [address] L506.1001on 01-23-2025 Vitamin D 25-OH 24.9 ng/mL Low 30-100 [facility] Comment on above: Result Comment: Yina min D Status Deficiency: <20 ng/mL (50nmol/L) Insufficiency: 20-30 ng/mL (50-75 nmol/L) Sufficiency: 30-100 ng/mL (75-250 nmol/L) Toxicity: >100 ng/mL (>250 nmol/L) Performed By: #### L 501.9985, L501.9520, L500.4050, L500.4100, L100.0100, L506.1001, L503.0106 #### [facility] [address] [place], [address] LDL calc ser/plasOrdered By: Spencer Chino on 01-23-2025 Cholesterol in LDL [Mass/Vol] 105 mg/dL [facility] Comment on above: Eyikxyzhos=634-948 m g/dL & Higher Ljki=490 mg/dL or greater LDL Cholesterol, Calculated 105 mg/dL [facility] Comment on above: Qodyyfxmql=408-897 m g/dL & Higher Rgjd=893 mg/dL or greater Laboratory - Chemistry and C hemistry - challengeOrdered By: Spencer Chino on 01-23-2025 AST [Catalytic activity/Vol] 18 U/L <32 [facility] Lipid Profileon 01-23-2025 CHOL:HDL 4.13 Normal [facility] Comment on above: Performed By: #### L 501.9985, L501.9520, L500.4050, L500.4100, L100.0100, L506.1001, L503.0106 #### [facility] [address] [place], [address] Cholesterol [Mass/Vol] 204 mg/dL High <=200 [facility] Comment on above: Result Comment: Chol esterol level, Desirable <200 mg/dL Borderline high cholesterol 200-239 mg/dL High cholesterol >=240 mg/dL Recommendations of the NCEP Adult Treatment Panel for the following risk-cutoff thresholds for the [place] population. Performed By: #### L 501.9985, L501.9520, L500.4050, L500.4100, L100.0100, L506.1001, L503.0106 #### [facility] [address] [place], [address] Cholesterol in HDL [Mass/Vol] 49 mg/dL Normal [facility] Comment on above: Result Comment: Autumn onal Cholesterol Education Program (NCEP) guidelines: <40 mg/dL: Low HDL-cholesterol (major risk factor for CHD) >= 60 mg/dL: High HDL-cholesterol (negative risk factor for CHD) HDL-cholesterol is affected by a number of factors, e.g. smoking, exercise, hormones, sex and age. Performed By: #### L 501.9985, L501.9520, L500.4050, L500.4100, L100.0100, L506.1001, L503.0106 #### [facility] [address] [place], [address] Cholesterol in LDL [Mass/Vol] 105 mg/dL Normal [facility] Comment on above: Result Comment: Bord brwmlk=664-316 mg/dL Higher Hggv=164 mg/dL or greater Performed By: #### L 501.9985, L501.9520, L500.4050, L500.4100, L100.0100, L506.1001, L503.0106 #### [facility] [address] [place], [address] Cholesterol in VLDL [Mass/Vol] 50 mg/dL High 5-40 [facility] Comment on above: Performed By: #### L 501.9985, L501.9520, L500.4050, L500.4100, L100.0100, L506.1001, L503.0106 #### [facility] [address] [place], [place], [address] Triglyceride [Mass/Vol] 248 mg/dL High [facility] Comment on above: Result Comment: The drugs N-Acetylcysteine and Metamizole may falsely depress this assay. Normal range: <150 mg/dL Borderline High: 150-199 mg/dL High: 200-499 mg/dL Very High: >500 mg/dL Performed By: #### L 501.9985, L501.9520, L500.4050, L500.4100, L100.0100, L506.1001, L503.0106 #### [facility] [address] [place], [place], [id number] Lymphocytes Auto (Unsp spec) [#/Vol]Ordered By: Spencer Chino on 01-23-2025 Lymphocytes (Bld) [#/Vol] 1.92 10*3/uL 0.83-4.51 [facility] Lymphocytes/100 WBC Auto (Un sp spec)Ordered By: Spencer Chino on 01-23-2025 Lymphocytes/100 WBC (Bld) 30.7 % 19-41 [facility] MCV (mean corpuscular volume ) determinationOrdered By: Spencer Chino on 01-23-2025 MCV (RBC) [Entitic vol] 88.1 fL 81-99 [facility] Mean corpuscular hemoglobin (MCH) determinationOrdered By: Spencer Chino on 01-23-2025 MCH (RBC) [Entitic mass] 29.2 pg 27.0-32.0 [facility] Mean corpuscular hemoglobin concentration (MCHC) determinationOrdered By: Spencer Chino on 01-23-2025 MCHC (RBC) [Mass/Vol] 33.1 g/dL 32-36 [facility] Mean platelet volume determi nationOrdered By: Spencer Chino on 01-23-2025 Platelet mean volume (Bld) [Entitic vol] 11.1 fL 6.2-12.0 [facility] Monocyte percentageOrdered B y: Spencer Chino on 01-23-2025 Monocytes/100 WBC (Bld) 8.6 % 0-10 [facility] Neutrophil percentageOrdered By: Spencer Chino on 01-23-2025 Neutrophils/100 WBC (Bld) 55.4 % 47-70 [facility] Nucleated red blood cell per centageOrdered By: Spencer Chino on 01-23-2025 Nucleated RBC/100 WBC (Bld) [Ratio] 0 % 0-5 [facility] Platelet countOrdered By: Shlomo Chnio on 01-23-2025 Platelets (Bld) [#/Vol] 210 10*3/uL 150-450 [facility] RBC Auto (Bld) [#/Vol]Ordere d By: Spencer Chino on 01-23-2025 RBC (Bld) [#/Vol] 4.87 10*6/uL 4.2-5.4 [facility] Screening total cholesterol/ high density lipoprotein (HDL) cholesterol ratioOrdered By: Spencer Chino on 01-23-2025 Cholesterol.total/Choles terol in HDL [Mass ratio] 4.13 {ratio} [facility] Serum creatinine measurement (mass/volume)Ordered By: Spencer Chino on 01-23-2025 Creatinine [Mass/Vol] 0.7 mg/dL 0.70-1.20 [facility] Serum globulin measurementOr dered By: Spencer Chino on 01-23-2025 Globulin (S) [Mass/Vol] 2.6 g/dL 2.2-4.2 [facility] Serum glucose measurement (m ass/volume)Ordered By: Spencer Chino on 01-23-2025 Glucose [Mass/Vol] 87 mg/dL 70-99 [facility] Serum or plasma alanine luna otransferase (ALT) measurementOrdered By: Spencer Chino on 01-23-2025 ALT [Catalytic activity/Vol] 15 U/L <35 [facility] Serum or plasma albumin melanie urement (mass/volume)Ordered By: Spencer Chino on 01-23-2025 Albumin [Mass/Vol] 4.7 g/dL 3.5-5.0 [facility] Serum or plasma albumin/glob ulin mass ratioOrdered By: Spencer Chino on 01-23-2025 Albumin/Globulin [Mass ratio] 1.8 {ratio} 0.9-2.4 [facility] Serum or plasma alkaline maya sphatase measurementOrdered By: Spencer Chino on 01-23-2025 ALP [Catalytic activity/Vol] 78 U/L 35-104 [facility] Serum or plasma anion gap de termination (moles/volume)Ordered By: Spencer Chino on 01-23-2025 Anion gap [Moles/Vol] 12 mmol/L 5-15 [facility] Serum or plasma calcium melanie urement (mass/volume)Ordered By: Spencer Chino on 01-23-2025 Calcium [Mass/Vol] 10.1 mg/dL 7.6-11.0 [facility] Serum or plasma cholesterol in HDL measurement (mass/volume)Ordered By: Spencer Chino on 01-23-2025 Cholesterol in HDL [Mass/Vol] 49 mg/dL >40 [facility] Comment on above: National Cholesterol Education Program (NCEP) guidelines:<40 mg/dL: Low HDL-cholesterol (major risk factor for CHD)>= 60 mg/dL: High HDL-cholesterol (negative risk factor for CHD)HDL-cholesterol is affected by a number of factors, e.g. smoking, exercise, hormones, sex and age. Serum or plasma cholesterol measurement (mass/volume)Ordered By: Spencer Chino on 01-23-2025 Cholesterol [Mass/Vol] 204 mg/dL High <201 [facility] Comment on above: Cholesterol level, D esirable <200 mg/dLBorderline high cholesterol 200-239 mg/dLHigh cholesterol >=240 mg/dLRecommendations of the NCEP Adult Treatment Panel for the following risk-cutoff thresholds for the [place] population. Serum or plasma potassium me asurementOrdered By: Spencer Chino on 01-23-2025 Potassium [Moles/Vol] 4.2 mmol/L 3.3-5.1 [facility] Serum or plasma sodium measu rement (moles/volume)Ordered By: Spencer Chino on 01-23-2025 Sodium [Moles/Vol] 141 mmol/L 133-145 [facility] Serum or plasma urea nitroge n measurement (mass/volume)Ordered By: Spencer Chino on 01-23-2025 Urea nitrogen [Mass/Vol] 15 mg/dL 4-19 [facility] TSH DL <= 0.005 mIU/L QnOrde red By: Spencer Chino on 01-23-2025 Thyroid Stimulating Hormone (TSH) 1.240 uIU/mL 0.300-4.200 [facility] TSH Qn 1.240 uIU/mL 0.300-4.200 [facility] Thyroid Stim Hormone (TSH)on 01-23-2025 TSH 1.240 uIU/mL Normal 0.300-4.200 [facility] Comment on above: Performed By: #### L 501.9985, L501.9520, L500.4050, L500.4100, L100.0100, L506.1001, L503.0106 #### [facility] [address] [place], [place], [id number] Total proteinOrdered By: Zehra Chino on 01-23-2025 Protein [Mass/Vol] 7.3 g/dL 5.9-8.4 [facility] Triglycerides measurementOrd ered By: Spencer Chino on 01-23-2025 Triglyceride [Mass/Vol] 248 mg/dL High <199 [facility] Comment on above: The drugs N-Acetylcy steine and Metamizole may falsely depress this assay. Normal range: <150 mg/dLBorderline High: 150-199 mg/dLHigh: 200-499 mg/dLVery High: >500 mg/dL Vitamin B12 ser/plasOrdered By: Spencer Chino on 01-23-2025 Cobalamin (Vitamin B12) [Mass/Vol] 500 pg/mL 180-914 [facility] Vitamin D, 25-hydroxyOrdered By: Spencer Chino on 01-23-2025 Vitamin D 25-Hydroxy 24.9 ng/mL Low 30-100 [facility] Comment on above: Vitamin D StatusDefi ciency: <20 ng/mL (50nmol/L)Insufficiency: 20-30 ng/mL (50-75 nmol/L)Sufficiency: 30-100 ng/mL (75-250 nmol/L)Toxicity: >100 ng/mL (>250 nmol/L) White blood cell (WBC) count Ordered By: Spencer Chino on 01-23-2025 WBC (Bld) [#/Vol] 6.3 10*3/uL 4.4-11.0 [facility] Fund Development Manager Office Visit Reporton 12-28-2024 Fund Development Manager Office Visit Report [facility] [address], [address] [place] [address] OFFICE VISIT Date of Service: 12/28/24 MR#: [id number] Acct: [id number] Name: DARLENE RODRIGUEZ Rep #: [id number] : 1975 Provider: ROSIE ramirez Age/Sex: 49/F Location: [facility] Status: Signed Intake Vital Signs 12/14/23 09:21 12/28/24 08:03 12/28/24 08:08 Height 5 ft 1 in 5 ft 1 in 5 ft 1 in Weight: 126 lb BMI 23.8 BP 106/73 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 no concerns. has been participating in pelvic floor therapy with modest effects and is happy with results. Last PAP: 2018; normal. hpv neg History of abnormal PAP: [...] external appea (more content not included)... Normal [facility] ED Prov Noteon 07-18-2024 ED Prov Note ED PROVIDER NOTE [facility] EM[facility]Y [facility] NAME: Darlene Carlson AGE: 49 y.o. : 1975 VISIT DATE: 07/18/2024 CSN: [id number] PCP: Julio Cesar Gonzalez CNP Chief Complaint Patient presents with Dizziness [...] Follow-up Info (more content not included)... Normal [facility] POC [facility] Chloride [Moles/Vol] 112 mmol/L High 98-108 [facility] Comment on above: Order Comment: [facility] Services has implemented the eGFR calculation approach that does not have a coefficient for race that conforms to the NKF-ASN Task Force Recommendations. CO2 [Moles/Vol] 25 mmol/L Normal 21-32 [facility] Comment on above: Order Comment: [facility] Services has implemented the eGFR calculation approach that does not have a coefficient for race that conforms to the NKF-ASN Task Force Recommendations. Creatinine [Mass/Vol] 0.66 mg/dL Normal 0.40-1.10 [facility] Comment on above: Order Comment: [facility] Services has implemented the eGFR calculation approach that does not have a coefficient for race that conforms to the NKF-ASN Task Force Recommendations. Glucose [Mass/Vol] 109 mg/dL High 65-99 [facility] Comment on above: Order Comment: [facility] Services has implemented the eGFR calculation approach that does not have a coefficient for race that conforms to the NKF-ASN Task Force Recommendations. POC GFR 108 mL/min/1.73 m2 Normal >=60 [facility] Comment on above: Order Comment: [facility] Services has implemented the eGFR calculation approach that does not have a coefficient for race that conforms to the NKF-ASN Task Force Recommendations. Result Comment: Sylvia mated GFR was calculated using the 2020 CKD-EPI creatinine equation. POC IONIZED CALCIUM 5.3 mg/dL Normal 4.5-5.3 [facility] Comment on above: Order Comment: [facility] Services has implemented the eGFR calculation approach that does not have a coefficient for race that conforms to the NKF-ASN Task Force Recommendations. Potassium [Moles/Vol] 4.2 mmol/L Normal 3.5-5.1 [facility] Comment on above: Order Comment: [facility] Services has implemented the eGFR calculation approach that does not have a coefficient for race that conforms to the NKF-ASN Task Force Recommendations. Sodium [Moles/Vol] 144 mmol/L Normal 135-145 [facility] Comment on above: Order Comment: [facility] Services has implemented the eGFR calculation approach that does not have a coefficient for race that conforms to the NKF-ASN Task Force Recommendations. Urea nitrogen [Mass/Vol] 29 mg/dL High 8-25 [facility] Comment on above: Order Comment: [facility] Services has implemented the eGFR calculation approach that does not have a coefficient for race that conforms to the NKF-ASN Task Force Recommendations. POC CBC AND DIFFERENTIALon 0 07-18-2024 BASOPHILS ABSOLUTE COUNT 0.02 K/mcL Normal 0.00-0.30 [facility] Basophils/100 WBC (Bld) 0.4 % Normal [facility] Eosinophils (Bld) [#/Vol] 0.24 10*3/uL Normal 0.00-0.50 [facility] Eosinophils/100 WBC (Bld) 5.1 % Normal [facility] Erythrocyte distribution width (RBC) [Ratio] 13.2 % Normal 11.6-14.8 [facility] Hematocrit (Bld) [Volume fraction] 44.1 % Normal 36.0-46.0 [facility] Hemoglobin (Bld) [Mass/Vol] 14.7 g/dL Normal 12.0-16.0 [facility] IG ABSOLUTE 0.01 K/mcL Normal 0.00-0.30 [facility] IG PERCENT 0.20 % Normal [facility] Comment on above: Result Comment: The IG parameter is the percentage of metamyelocytes, myelocytes and promyelocytes. An immature granulocyte count (IG) of 1% or more suggests the possibility of infection, an IG count of 3% is very likely related to an infection. Lymphocytes (Bld) [#/Vol] 1.25 10*3/uL Normal 0.90-4.00 [facility] Lymphocytes/100 WBC (Bld) 26.7 % Normal [facility] MCH (RBC) [Entitic mass] 29.4 pg Normal 26.0-34.0 [facility] MCV (RBC) [Entitic vol] 88.2 fL Normal 80.0-100.0 [facility] MEAN CORPUSCULAR HEMOGLOBIN CONC 33.3 g/dL Normal 31.0-37.0 [facility] Monocytes (Bld) [#/Vol] 0.44 10*3/uL Normal 0.30-0.90 [facility] Monocytes/100 WBC (Bld) 9.4 % Normal [facility] NEUTROPHILS ABSOLUTE COUNT 2.72 K/mcL Normal 1.70-7.00 [facility] Neutrophils/100 WBC (Bld) 58.2 % Normal [facility] Platelet mean volume (Bld) [Entitic vol] 10.3 fL Normal 9.4-12.4 [facility] Platelets (Bld) [#/Vol] 181 10*3/uL Normal 150-400 [facility] RBC (Bld) [#/Vol] 5.00 10*6/uL Normal 4.00-5.20 [facility] WBC (Bld) [#/Vol] 4.68 10*3/uL Normal 4.50-11.00 [facility] Absolute lymphocyte countOrd ered By: Ladonna Grant on 12-13-2022 Lymphocytes Auto (Unsp spec) [#/Vol] 1.32 10*3/uL 0.83-4.51 [facility] Basophil percentageOrdered B y: Ladonna Grant on 12-13-2022 Basophils/100 WBC (Bld) 1.1 % 0-1 [facility] Bilirubin [Mass/Vol] 0.80 mg/dL 0.20-1.00 [facility] Comment on above: For patients on eltr ombopag therapy, use of Dimension [place] TBIL is not recommended. Chloride [Moles/Vol] 107 mmol/L 98-107 [facility] Cholesterol [Mass/Vol] 134 mg/dL <200 [facility] Comment on above: <200 mg/dL Desirable 200-240 mg/dL Borderline >240 mg/dL High Risk Eosinophils/100 WBC (Bld) 3.3 % 0-5 [facility] Glucose [Mass/Vol] 96 mg/dL 74-106 [facility] Neutrophils (Bld) [#/Vol] 1.8 10*3/uL 2.0-7.7 [facility] Neutrophils/100 WBC (Bld) 49.1 % 47-70 [facility] Potassium [Moles/Vol] 3.7 mmol/L 3.5-5.1 [facility] Protein [Mass/Vol] 7.5 g/dL 6.4-8.2 [facility] Sodium [Moles/Vol] 142 mmol/L 136-145 [facility] WBC (Bld) [#/Vol] 3.6 10*3/uL 4.4-11.0 [facility] Blood erythrocytes count (nu mber/volume)Ordered By: Ladonna Grant on 12-13-2022 RBC (Bld) [#/Vol] 4.76 10*6/uL 4.2-5.4 [facility] Blood hemoglobin measurement (mass/volume)Ordered By: Ladonna Grant on 12-13-2022 Hemoglobin (Bld) [Mass/Vol] 14.2 g/dL 12.0-15.0 [facility] Blood lymphocytes/100 leukoc ytesOrdered By: Ladonna Grant on 12-13-2022 Lymphocytes/100 WBC (Bld) 36.5 % 19-41 [facility] Blood monocytes/100 leukocyt esOrdered By: Ladonna Grant on 12-13-2022 Monocytes/100 WBC (Bld) 9.7 % 0-10 [facility] Blood platelet mean volumeOr dered By: Ladonna Grant on 12-13-2022 Platelet mean volume (Bld) [Entitic vol] 10.5 fL 6.2-12.0 [facility] Determination of erythrocyte mean corpuscular volume (MCV)Ordered By: Ladonna Grant on 12-13-2022 MCV (RBC) [Entitic vol] 90.1 fL 81-99 [facility] Hematocrit Auto (Bld) [Volum e fraction]Ordered By: Ladonna Grant on 12-13-2022 Hematocrit (Bld) [Volume fraction] 42.9 % 37-47 [facility] - Chemistry and C hemistry - challengeOrdered By: Ladonna Grant on 12-13-2022 ALP [Catalytic activity/Vol] 72 U/L 45-117 [facility] ALT [Catalytic activity/Vol] 23 U/L 13-56 [facility] CO2 [Moles/Vol] 27.0 mmol/L 21.0-32.0 [facility] Globulin (S) [Mass/Vol] 3.5 g/dL 2.2-4.2 [facility] Urea nitrogen/Creatinine [Mass ratio] 16.8 mg/mg 10-20 [facility] - Hematology and Cell countsOrdered By: Ladonna Grant on 12-13-2022 Erythrocyte distribution width (RBC) [Entitic vol] 42.1 fL 35.1-43.9 [facility] Erythrocyte distribution width (RBC) [Ratio] 12.7 % 11.6-14.6 [facility] Immature granulocytes/100 WBC (Bld) 0.300 % 0.0-0.9 [facility] Comment on above: IG% - Immature Granu locytes (promyelocytes, myelocytes and metamyelocytes) > 1% indicates that a LEFT SHIFT is Present. MCH (RBC) [Entitic mass] 29.8 pg 27.0-32.0 [facility] Nucleated RBC/100 WBC (Bld) [Ratio] 0 % 0-5 [facility] MCHC Auto (RBC) [Mass/Vol]Or dered By: Ladonna Grant on 12-13-2022 MCHC (RBC) [Mass/Vol] 33.1 g/dL 32-36 [facility] No Panel InformationOrdered By: Ladonna Grant on 12-13-2022 Estimated GFR (MDRD) Amer 87 mL/min >60 [facility] Comment on above: GFR Calc Estimated GFR (MDRD) Non-Af Amer 72 mL/min >60 [facility] Comment on above: Non- GFR Calc Vitamin D 25-Hydroxy 25.2 ng/mL [facility] Comment on above: Vitamin D 25(OH) Sta tus Range Deficiency <20 ng/mL (50nmol/L) Insufficiency 20 - 30 ng/mL (50 - 75 nmol/L) Sufficiency 30 - 100 ng/mL (75 - 250 nmol/L) Toxicity >100 ng/mL (>250 nmol/L) Platelets bldOrdered By: Kiara Grant on 12-13-2022 Platelets (Bld) [#/Vol] 187 10*3/uL 150-450 [facility] Serum or plasma albumin melanie urement (mass/volume)Ordered By: Ladonna Grant on 12-13-2022 Albumin [Mass/Vol] 4.0 g/dL 3.2-5.0 [facility] Serum or plasma albumin/glob ulin mass ratioOrdered By: Ladonna Grant on 12-13-2022 Albumin/Globulin [Mass ratio] 1.1 {ratio} 0.9-2.4 [facility] Serum or plasma calcium melanie urement (mass/volume)Ordered By: Ladonna Grant on 12-13-2022 Calcium [Mass/Vol] 9.8 mg/dL 8.5-10.1 [facility] Serum or plasma creatinine m easurement (mass/volume)Ordered By: Ladonna Grant on 12-13-2022 Creatinine [Mass/Vol] 0.89 mg/dL 0.55-1.02 [facility] Comment on above: The validity of the calculated GFR & GFRAA in patients over 70 years has not been determined. Clinical correlation is essential. Serum or plasma urea nitroge n measurement (mass/volume)Ordered By: Ladonna Grant on 12-13-2022 Urea nitrogen [Mass/Vol] 15 mg/dL 7-18 [facility] Thin prep Papanicolaou smear with manual screeningOrdered By: Ladonna Grant on 12-13-2022 Thin prep Papanicolaou smear with manual screening 11 U/L 15-37 [facility] Thin prep Papanicolaou smear with manual screening 8 5-15 [facility] Whole blood hemoglobin A1c/t otal hemoglobin ratio (mass fraction)Ordered By: Ladonna Grant on 12-13-2022 HbA1c (Bld) [Mass fraction] 4.7 % 3.8-5.6 [facility] Comment on above: Normal < 5.7 % Predi abetic 5.7 - 6.4 % Diabetic >or= 6.5 % Please note range changes. Provider Note - ED v3on 10-2 Provider Note - ED v3 Provider Note: Chart Review: HISTORY OF PRESENTING ILLNESS DARLENE is a 47 year old Female and [...] past surgical history or known significant events. VIDEO ARCADE MANAGER: Is : no Is : no CRITICAL CARE VITAL SIGNS: T PRBP SpO2O2(LPM) %FiO2 Method 25-Sep-2022 09:05:[id number]/ 73 98 MDM MDM/ED COURSE: This note [...] m/r/g. Musculoskeletal: Grossly normal for age. Integumentary: [place], warm, dry, and Intact. Normal skin turgor; [...] ill patient: no Electronic Signatures: Kerry Hardy (METAL FURNACE OPERATOR-DISHWASHER BUSSER) (Signed 26-Sep-2022 08:52) Authored: HPI, PMH, Results/Vital (more content not included)... Normal [facility] Office Visiton 09-29-2021 Follow-up visit Diagnoses/Problems Current [...] AM Vitals Vital Signs Recorded: 29Sep2021 03:32PM Aeqojbswsff58.3 F Heart Rate89 Lqwqjkfj50, LUE Fygaloukz12, LUE Height5 ft 6 in Cxkpwg543 lb 9 oz BMI Isrkyynstt03.59 kg/m2 BSA Calculated1.65 Tobacco Useb) No Fall Screeninga) No falls within the last year O2 Frkjyvccvb94 Physical Exam General: Well appearing, in no distress Respiratory: Able to speak in full sentences, nonlabored breathing, no cough Neuro: Alert and oriented x 3 Psych: Appropriate affect and mood Signatures Electronically signed by : JESSICA Moody; Sep 29 2021 4:12PM EST (Author) Normal [facility] Tobacco Screening.on 021 Fall risk assessment a) No falls within the last year [facility] and Work Phone: Tobacco use status [facility] b) No M [facility] and Work Phone: CT Cardiac Scoringon 021 CT Cardiac Scoring Normal [facility] Work Phone: Office Visiton 09-08-2021 Follow-up [...] elevated cholesterol levels. She talk to her soil fertility specialist and they recommended that she take medication. [...] AM Vitals Vital Signs Recorded: 08Sep2021 03:26PM Odloujnisae06.4 F Heart Rate72 Arkdhsqw344, LUE Ghxsfsvpi66, LUE Height5 ft 6 in Vbwjmb373 lb 4 oz BMI Zksepmtded81.05 kg/m2 BSA Calculated1.63 Tobacco Usea) Yes Fall Screeninga) No falls within the last year O2 Jbgcydddxj05 Physical Exam General: Well appearing, in no distress Respiratory: Able to speak in full sentences, nonlabored breathing, no cough Neuro: Alert and oriented x 3 Psych: Appropriate affect and mood Signatures Electronically signed by : JESSICA Moody; Sep 08 2021 6:41PM EST (Author) Normal [facility] Tobacco Screening.on 021 Fall risk assessment a) No falls within the last year [facility] and Work Phone: Tobacco use status [facility] a) Yes [facility] Work Phone: 19-49 Yearson 02-24-2021 19-49 Years Diagnoses/Problems Assessed Nicotine abuse (305.1) (Z72.0) Night sweats (780.8) (R61) Adjustment insomnia (307.41) (F51.02) Mild hyperlipidemia (272.4) (E78.5) Orders Mild hyperlipidemia Lipid Panel; Status:Active; Requested for:24Feb2021; Perform:Lab Services - Lab To Draw (Blood Test); Due:25May2021;Ordered ; For:Mild hyperlipidemia; Ordered By:Julio Cesar Gonzalez; Nicotine abuse Start: Chantix Continuing Month Porfirio 1 MG Oral Tablet; TAKE DIRECTED PER PACKAGE INSTRUCTIONS Rx By: Julio Cesar Gonzalez; Dispense: 0 Days ; #:1 X 56 Tablet Pack; Refill: 1; For: Nicotine abuse; JOEL = N; Verified Transmission to [address]; Last Updated By: Infopia CensorNet; 02/24/2021 4:31:03 PM Start: Chantix Starting Month Porfirio 0.5 MG X 11 AND 1 MG X 42 Oral Tablet; TAKE DIRECTED PER PACKAGE INSTRUCTIONS Rx By: Julio Cesar Gonzalez; Dispense: 0 Days ; #:1 X 53 Tablet Pack; Refill: 0; For: Nicotine abuse; JOEL = N; Verified Transmission to [address]; Last Updated By: Juan CensorNet; 02/24/2021 4:31:00 PM Night sweats Follicle Stimulating Hormone, Serum; Status:Active; Requested for:24Feb2021; Perform:Lab Services - Lab To Draw (Blood Test); Due:25May2021;Ordered ; For:Night sweats; Ordered By:Julio Cesar Gonzalez; Patient Discussion/Summary Hyperlipidemia: labs reviewed with pt. [...] cancer screening reviewed and current . In 2020. Metabolic screening: lipid profile performed within the [...] AM Vitals Vital Signs Recorded: 24Feb2021 03:57PM Pgumncwqsmb33 F Heart Rate68 Gkbpibql46 Ykhqcjfqh89 Height5 ft 1.61 in Tfhkzp719 lb 6 oz BMI Kqynorwifx06.11 BSA Calculated1.53 Tobacco Usea) Yes Physical Exam [...] memory: N (more content not included)... Normal [facility] Auto Diffon 08-02-2018 Basophils #/vol (Bld) 0.1 E3/mcL Normal 0.0-0.2 [facility] Comment on above: Order Comment: Order Added by Discern Expert. Performed By: #### 2 [id number] #### MAYANK RemHemo [address] [place] [address] Basophils/100 WBC (Bld) 0.7 % Normal 0.0-2.[address] [facility] Comment on above: Order Comment: Order Added by Discern Expert. Performed By: #### 2 [id number] #### MAYANK RemHemo [address] [place] [address] Eos Absolute 0.2 E3/mcL Normal 0.0-0.7 [facility] Comment on above: Order Comment: Order Added by Discern Expert. Performed By: #### 2 [id number] #### MAYANK RemHemo [address] [place] [address] Eosinophils/100 WBC (Bld) 2.0 % Normal 0.0-11.0 [facility] Comment on above: Order Comment: Order Added by Discern Expert. Performed By: #### 2 [id number] #### MAYANK RemHemo [address] [place] [address] Lymphocytes #/vol (Bld) 2.3 E3/mcL Normal 1.2-3.[address] [facility] Comment on above: Order Comment: Order Added by Discern Expert. Performed By: #### 2 [id number] #### MAYANK RemHemo [address] [place] [address] Lymphocytes/100 WBC (Bld) 27.5 % Normal 20.0-55.0 [facility] Comment on above: Order Comment: Order Added by Discern Expert. Performed By: #### 2 [id number] #### MAYANK RemHemo [address] [place] [address] [place] Absolute 0.7 E3/mcL Normal 0.0-0.7 [facility] Comment on above: Order Comment: Order Added by Discern Expert. Performed By: #### 2 [id number] #### MAYANK RemHemo [address] [place] [address] Monocytes/100 WBC (Bld) 8.4 % Normal 0.0-10.[address] [facility] Comment on above: Order Comment: Order Added by Discern Expert. Performed By: #### 2 [id number] #### MAYANK BalderramaHemo [address] [place] [id number] Neutro Absolute 5.1 E3/mcL Normal 1.4-6.5 [facility] Comment on above: Order Comment: Order Added by Discern Expert. Performed By: #### 2 [id number] #### MAYANK BalderramaHemo [address] [place] [id number] Neutro Auto 61.4 % Normal 37.0-75.0 [facility] Comment on above: Order Comment: Order Added by Discern Expert. Performed By: #### 2 [id number] #### MAYANK BalderramaHemo [facility] [place] [id number] CBC w/ Auto Diffon 8 Erythrocyte distribution width Ratio (RBC) 16.9 % High 11.5-14.5 [facility] Comment on above: Performed By: #### 2 [id number] #### MAYANK BalderramaHemo [address] [place], [place] [id number] Hematocrit Volume Fraction (Bld) 37.0 % Normal 36.0-48.0 [facility] Comment on above: Performed By: #### 2 [id number] #### MAYANK BalderramaHemo [address] [place], [place] [id number] Hemoglobin mass conc (Bld) 12.0 g/dL Normal 12.0-16.0 [facility] Comment on above: Performed By: #### 2 [id number] #### MAYANK BalderramaHemo [address] [place] [address] MCH Entitic mass (RBC) 25.9 pg Low 27.0-31.0 [facility] Comment on above: Performed By: #### 2 [id number] #### MAYANK RemHemo [address] [place] [address] MCHC mass conc (RBC) 32.5 g/dL Low 33.0-37.0 [facility] Comment on above: Performed By: #### 2 [id number] #### MAYANK RemHemo [address] [place] [id number] MCV Entitic volume (RBC) 79.7 fL Normal 78.0-100.0 [facility] Comment on above: Performed By: #### 2 [id number] #### MAYANK BalderramaHemo [address] [place] [id number] Platelet mean volume Entitic volume (Bld) 9.2 fL Normal 7.4-11.0 [facility] Comment on above: Performed By: #### 2 [id number] #### MAYANK BalderramaHemo [address] [place], [place] [id number] Platelets #/vol (Bld) 245 E3/mcL Normal 130-400 [facility] Comment on above: Performed By: #### 2 [id number] #### MAYANK BalderramaHemo [address] [place], [place] [address] RBC #/vol (Bld) 4.64 E6/mcL Normal 3.90-5.40 [facility] Comment on above: Performed By: #### 2 [id number] #### MAYANKGwen BalderramaHemo [address] [place], [place] [address] WBC #/vol (Bld) 8.4 E3/mcL Normal 3.6-11.0 [facility] Comment on above: Performed By: #### 2 [id number] #### MAYANK BalderramaHemo [address] [place], [place] [id number] CMPon 08-02-2018 Albumin mass conc 3.7 g/dL Normal 3.2-5.0 [facility] Comment on above: Performed By: #### 2 [id number] #### MAYANK Krueger [address] [place], [place] [id number] Albumin/Globulin mass ratio 1.3 {ratio} Normal 1.1-1.9 [facility] Comment on above: Performed By: #### 2 [id number] #### MAYANKGwen BalderramaMargaux [facility] [place] [id number] Alk Phos 68 Int._Unit/L Normal 42-121 [facility] Comment on above: Performed By: #### 2 [id number] #### MAYANK BalderramaMargaux [facility] [place] [id number] ALT enzyme act/vol 12 Int._Unit/L Normal 10-40 [facility] Comment on above: Performed By: #### 2 [id number] #### MAYNAK BalderramaChem [address] [place] [address] AST enzyme act/vol 14 Int._Unit/L Normal 10-42 [facility] Comment on above: Performed By: #### 2 [id number] #### MAYANK RemChem [address] [place] [address] Bili Total 0.4 mg/dL Normal 0.2-1.0 [facility] Comment on above: Performed By: #### 2 [id number] #### MAYANK RemChem [address] [place] [address] Creatinine mass conc 0.8 mg/dL Normal 0.6-1.3 [facility] Comment on above: Performed By: #### 2 [id number] #### MAYANK BalderramaChem [address] [place] [address] Globulin mass conc (S) 2.9 g/dL Normal 2.0-4.0 [facility] Comment on above: Performed By: #### 2 [id number] #### MAYANK RemChem [address] [place] [address] Protein mass conc 6.6 g/dL Normal 6.4-8.3 [facility] Comment on above: Performed By: #### 2 [id number] #### MAYANK RemChem [address] [place] [address] Urea nitrogen mass conc 10 mg/dL Normal 7-[address] [facility] Comment on above: Performed By: #### 2 [id number] #### MAYANK RemChem [address] [place] [address] Urea nitrogen/Creatinine mass ratio 12.5 ratio Normal 5.4-30.0 [facility] Comment on above: Performed By: #### 2 [id number] #### MAYANK RemChem [address] [place] [address] Calcium mass conc 9.2 mg/dL Normal 8.4-10.2 [facility] Comment on above: Performed By: #### 2 [id number] #### MAYANK RemChem [address] [place] [address] Chloride molar conc 106 mmol/L Normal 98-107 [facility] Comment on above: Performed By: #### 2 [id number] #### MAYANK RemChem [address] [place] [address] CO2 molar conc 24.5 mmol/L Normal 24.0-30.0 [facility] Comment on above: Performed By: #### 2 [id number] #### MAYANK RemChem [address] [place] [address] Glucose mass conc 108 mg/dL High 70-99 [facility] Comment on above: Performed By: #### 2 [id number] #### MAYANK RemChem [address] [place] [address] Potassium molar conc 3.5 mmol/L Normal 3.5-5.1 [facility] Comment on above: Performed By: #### 2 [id number] #### MAYANK RemChem [address] [place] [address] Sodium molar conc 139 mmol/L Normal 136-145 [facility] Comment on above: Performed By: #### 2 [id number] #### MAYANK RemChem [address] [place] [address] CT Abdomen/Pelvis w/ Contras ton 08-02-2018 CT Abdomen/Pelvis w/ Contrast Exam Date/Time: 08/02/2018 00:31 EDT Reason for Exam: RLQ pain;Pain Report STUDY: CT Abdomen/Pelvis w/ Contrast; 08/02/2018 12:31 am INDICATION: Pain. Right lower quadrant pain for 2 days. COMPARISON: None. ACCESSION NUMBER(S): [id number] ORDERING CLINICIAN: Dianne Monae TECHNIQUE: CT of [...] by: Sabrina Reyes DO Technologist: NAS Leon [facility] Lipase Levelon 08-02-2018 Lipase Lvl 20 U/L Normal 8-57 [facility] Comment on above: Performed By: #### 2 [id number] #### MAYANK RemChem [address] [place] [address] U BhCG Qlton 08-02-2018 HCG.beta subunit Qn Negative Normal Neg [facility] Comment on above: Performed By: #### 2 [id number] #### MAYANK Urinalysis Manual Subsection [address] [place] [address] UA Completeon 08-02-2018 Color Nom (U) Straw Normal Yellow [facility] Comment on above: Performed By: #### 8 [id number] #### MAYANK Urinalysis Automated Subsection [address] [place] [address] Glucose mass conc (U) Negative Normal Negative [facility] Comment on above: Performed By: #### 8 [id number] #### MAYANK Urinalysis Automated Subsection [address] [place] [address] Ketones Ql (U) Negative Normal Negative [facility] Comment on above: Performed By: #### 8 [id number] #### MAYANK Urinalysis Automated Subsection [facility] [place] [address] RBC #/vol (U) 0-3 Normal 0-3 [facility] Comment on above: Performed By: #### 8 [id number] #### MAYANK Urinalysis Automated Subsection [facility] [place] [address] UA Blood 1+ Abnormal Negative [facility] Comment on above: Performed By: #### 8 [id number] #### MAYANK Urinalysis Automated Subsection [facility] [place] [address] UA Bacteria Trace Abnormal None [facility] Comment on above: Performed By: #### 8 [id number] #### MAYANK Urinalysis Automated Subsection [address] [place] [address] UA Clarity Clear Normal Clear [facility] Comment on above: Performed By: #### 8 [id number] #### MAYANK Urinalysis Automated Subsection [address] [place] [address] UA Leuk Est Negative Normal Negative [facility] Comment on above: Performed By: #### 8 [id number] #### MAYANK Urinalysis Automated Subsection [address] [place] [address] UA Nitrite Negative Normal Negative [facility] Comment on above: Performed By: #### 8 [id number] #### MAYANK Urinalysis Automated Subsection [address] [place] [address] UA pH 6.0 Normal 4.6-8.0 [facility] Comment on above: Performed By: #### 8 [id number] #### MAYANK Urinalysis Automated Subsection [address] [place] [address] UA Protein Negative Normal Negative [facility] Comment on above: Performed By: #### 8 [id number] #### MAYANK Urinalysis Automated Subsection [address] [place] [address] UA Spec Grav 1.005 Normal 1.003-1.030 [facility] Comment on above: Performed By: #### 8 [id number] #### MAYANK Urinalysis Automated Subsection [facility] [place] [address] UA Squam Epithelial 0-5 Normal 0-5 [facility] Comment on above: Performed By: #### 8 [id number] #### MAYANK Urinalysis Automated Subsection [address] [place] [address] UA Urobilinogen Negative Normal [facility] Comment on above: Performed By: #### 8 [id number] #### MAYANK Urinalysis Automated Subsection [address] [place] [address] UA WBC 0-5 Normal 0-5 [facility] Comment on above: Performed By: #### 8 [id number] #### MAYANK Urinalysis Automated Subsection [address] [place] [address] Urobilinogen Qn (U) Negative Normal Negative [facility] Comment on above: Performed By: #### 8 [id number] #### MAYANK Urinalysis Automated Subsection [facility] [place] [address] eGFRon 08-02-2018 GFR/1.73 sq M predicted among non-blacks MDRD vol rate/area (S/P/Bld) mL/min/{1.73_m2} Normal [facility] Comment on above: Order Comment: Order added by Discern Expert. Performed By: #### 1 [id number] #### MAYANK RemChem [address] [place] [address] Vital Signs Date Time Vital Sign Value Performing Clinician Jorge Luis pelayo 09-04-2025 13:47-0400 Body height 154.94 cm Spencer Chino [employer] D[employer] HELPER[employer]C Work Phone: [facility] 09-04-2025 13:47-0400 Body mass index (BMI) [Ratio] 24 kg/m2 Spencer Chino [employer] D[employer] HELPER[employer]C Work Phone: [facility] 09-04-2025 13:47-0400 Body weight 57.6 kg Spencer Chino [employer] D[employer] HELPER[employer]C Work Phone: [facility] 09-04-2025 13:47-0400 Diastolic blood pressure 76 mm[Hg] Spencer Chino [employer] D[employer]ER HELPER-C Work Phone: [facility] 09-04-2025 13:47-0400 Heart rate 78 /min Spencer Chino [employer] D[employer] HELPER[employer]C Work Phone: 0(538)679-905501 [place] [address] 09-04-2025 13:47-0400 Respiratory rate 16 /min Spencer Chino [employer] D[employer] HELPER[employer]C Work Phone: 9(034)421-139101 [place] [address] 09-04-2025 13:47-0400 Systolic blood pressure 105 mm[Hg] Spencer Chino [employer] D[employer] HELPER[employer]C Work Phone: 2(674)656-831801 [place] [address] 05-09-2025 08:50-0400 Body temperature 98.2 [degF] Spencer Chino [employer] D[employer] HELPER[employer]C Work Phone: 5(945)090-652801 [place] [address] 05-09-2025 08:50-0400 Diastolic blood pressure 69 mm[Hg] Spencer Chino [employer] D[employer] HELPER[employer]C Work Phone: 1(826)630-515001 [place] [address] 05-09-2025 08:50-0400 Heart rate 74 /min Spencer Chino [employer] D[employer] HELPER[employer]C Work Phone: 4(339)031-023601 [place] [address] 05-09-2025 08:50-0400 Respiratory rate 16 /min Spencer Chino [employer] HEL[employer] Work Phone: 0(046)798-372501 [place] [address] 05-09-2025 08:50-0400 SaO2% (BldA) [Mass fraction] 100 % Spencer Chnio [employer] D[employer]ER HELPER-C Work Phone: 9(227)733-314401 [place] [address] 05-09-2025 08:50-0400 Systolic blood pressure 96 mm[Hg] Spencer Chino [employer] HELPER[employer]C Work Phone: 8(131)362-021401 [place] [address] 05-09-2025 07:07-0400 Body height 154.94 cm Spencer Chino [employer] D[employer] HELPER[employer]C Work Phone: 2(423)231-314301 [place] [address] 05-09-2025 07:07-0400 Body mass index (BMI) [Ratio] 23.3 kg/m2 Spencer Chino [employer] D[employer] HELPER[employer]C Work Phone: 1(312)342-623501 [place] [address] 05-09-2025 07:07-0400 Body weight 56.1 kg Spencer Chino [employer] HELPER[employer]C Work Phone: 9(822)900-552801 [place] [address] 04-30-2025 09:31-0400 Body height 154.94 cm Spencer Chino [employer] D[employer] HELPER[employer]C Work Phone: 8(405)613-874401 [place] [address] 04-30-2025 09:31-0400 Body mass index (BMI) [Ratio] 24.1 kg/m2 Spencer Chino [employer] D[employer]ER HELPER[employer]C Work Phone: [facility] 04-30-2025 09:31-0400 Body weight 58.05 kg Spencer Chino [employer] D[employer]ER HELPER[employer]C Work Phone: [facility] 04-30-2025 09:31-0400 Diastolic blood pressure 60 mm[Hg] Spencer Chino [employer] D[employer] HELPER[employer]C Work Phone: 3(276)108-791487 [place] [address] 04-30-2025 09:31-0400 Heart rate 73 /min Spencer Chino [employer] D[employer] HELPER[employer]C Work Phone: 8(794)136-697387 [place] [address] 04-30-2025 09:31-0400 SaO2% (BldA) [Mass fraction] 98 % Spencer Chino [employer] D[employer] HELPER[employer]C Work Phone: 2(795)196-056987 [place] [address] 04-30-2025 09:31-0400 Systolic blood pressure 101 mm[Hg] Spencer Chino [employer] D[employer] HELPER[employer]C Work Phone: 5(083)653-445487 [place] [address] 12-28-2024 08:08-0500 Body height 154.[address] Sonja Landaverde MD Work Phone: [facility] 12-28-2024 08:03-0500 Body mass index (BMI) [Ratio] 23.8 kg/m2 Dr. Sonja Landaverde MD Work Phone: [facility] 12-28-2024 08:03-0500 Body weight 57.[address] Sonja Landaverde MD Work Phone: [facility] 12-28-2024 08:03-0500 Diastolic blood pressure 73 mm[Hg] Dr. Sonja Landaverde MD Work Phone: [facility] 12-28-2024 08:03-0500 Systolic blood pressure 106 mm[Hg] Dr. Sonja Landaverde MD Work Phone: [facility] 12-13-2022 08:31-0500 Body height 154.[address] Sonja Landaverde Work Phone: [facility] 12-13-2022 08:31-0500 Body mass index (BMI) [Ratio] 23.4 kg/m2 Dr. Sonja Landaverde Work Phone: [facility] 12-13-2022 08:31-0500 Body weight 56.[address] Sonja Landaverde Work Phone: [facility] 12-13-2022 08:31-0500 Diastolic blood pressure 75 mm[Hg] Dr. Sonja Landaverde Work Phone: [facility] 12-13-2022 08:31-0500 Systolic blood pressure 106 mm[Hg] Dr. Sonja Landaverde Work Phone: [facility] 09-25-2022 11:05-0400 Body height 154.9 cm Julio Cesar Gonzalez Other Phone: [facility] 09-25-2022 11:05-0400 Body temperature 97.7 [degF] Julio Cesar Hodgeter Other Phone: [facility] 09-25-2022 11:05-0400 Diastolic blood pressure 73 mm[Hg] Julio Cesar Carlos Other Phone: [facility] 09-25-2022 11:05-0400 Heart rate 86 /min Julio Cesar Hodgeter Other Phone: [facility] 09-25-2022 11:05-0400 Respiratory rate 18 /min Julio Cesar Gonzalez Other Phone: [facility] 09-25-2022 11:05-0400 SaO2% (BldA) [Mass fraction] 98 % Julio Cesar Gonzalez Other Phone: [facility] 09-25-2022 11:05-0400 Systolic blood pressure 107 mm[Hg] Julio Cesar [place] Other Phone: [facility] 06-10-2022 10:35-0400 Body temperature 97.1 [degF] R[employer] D[employer]ER HELPER-C Julio Cesar [place] RUG DYER HELPER Work Phone: [facility] Work Phone: 06-10-2022 10:35-0400 Diastolic blood pressure 59 mm[Hg] RUG D[employer]ER HELPER-C Julio Cesar [place] RUG DYER HELPER Work Phone: [facility] Work Phone: 06-10-2022 10:35-0400 Respiratory rate 16 /min R[employer] D[employer] HELPER[employer]C Julio Cesar [place] RUG DYER HELPER Work Phone: [facility] Work Phone: 06-10-2022 10:35-0400 SaO2% (BldA) [Mass fraction] 100 % R[employer] D[employer] HELPER-C Julio Cesar [place] RUG DYER HELPER Work Phone: [facility] Work Phone: 06-10-2022 10:35-0400 Systolic blood pressure 90 mm[Hg] RUG DYER HELPER-C Julio Cesar [place] RUG DYER HELPER Work Phone: [facility] Work Phone: 06-10-2022 10:30-0400 Heart rate 60 /min R[employer] D[employer]ER HELPER-C Julio Cesar [place] RUG DYER HELPER Work Phone: [facility] Work Phone: 06-10-2022 08:25-0400 Body height 154.94 cm RUG D[employer]ER HELPER-C Julio Cesar [place] RUG DYER HELPER Work Phone: [facility] Work Phone: 06-10-2022 08:25-0400 Body mass index (BMI) [Ratio] 22.4 kg/m2 [employer] D[employer] HEL[employer] Julio Cesar [place] RUG DYER HELPER Work Phone: [facility] Work Phone: 06-10-2022 08:25-0400 Body weight 54 kg RUG DYER HELPER-C Julio Cesar [place] RUG DYER HELPER Work Phone: [facility] Work Phone: 03-31-2022 10:30-0400 Body height 154.94 cm RUG DYER HELPER-C Julio Cesar [place] RUG DYER HELPER Work Phone: [facility] Work Phone: 03-31-2022 10:30-0400 Body mass index (BMI) [Ratio] 23 kg/m2 R[employer] D[employer]ER HELPER-C Julio Cesar [place] RUG DYER HELPER Work Phone: [facility] Work Phone: 03-31-2022 10:30-0400 Body weight 55.33 kg RUG DYER HELPER-C Julio Cesar [place] RUG DYER HELPER Work Phone: [facility] Work Phone: 03-30-2022 08:54-0400 Body mass index (BMI) [Ratio] 23 kg/m2 R[employer] D[employer] HELPER-C Julio Cesar [place] RUG DYER HELPER Work Phone: [facility] Work Phone: 03-30-2022 08:54-0400 Body temperature 98 [degF] RUG DYER HELPER-C Julio Cesar [place] RUG DYER HELPER Work Phone: [facility] Work Phone: 03-30-2022 08:54-0400 Body weight 55.33 kg RUG DYER HELPER-C Julio Cesar [place] RUG DYER HELPER Work Phone: [facility] Work Phone: 03-30-2022 08:54-0400 Diastolic blood pressure 66 mm[Hg] RUG DYER HELPER-C Julio Cesar [place] RUG DYER HELPER Work Phone: [facility] Work Phone: 03-30-2022 08:54-0400 Heart rate 77 /min R[employer] D[employer]ER HELPER-C Julio Cesar [place] RUG DYER HELPER Work Phone: [facility] Work Phone: 03-30-2022 08:54-0400 Respiratory rate 14 /min R[employer] D[employer]ER HELPER-C Julio Cesar [place] RUG DYER HELPER Work Phone: [facility] Work Phone: 03-30-2022 08:54-0400 SaO2% (BldA) [Mass fraction] 98 % R[employer] D[employer]ER HELPER-C Julio Cesar Gonzalez RUG DYER HELPER Work Phone: [facility] Work Phone: 03-30-2022 08:54-0400 Systolic blood pressure 112 mm[Hg] RUG DYER HELPER-C Julio Cesar Gonzalez RUG DYER HELPER Work Phone: [facility] Work Phone: 09-29-2021 15:32-0400 Body height 167.64 cm Julio Cesar Gonzalez Work Phone: [facility] Work Phone: 09-29-2021 15:32-0400 Body mass index (BMI) [Ratio] 20.59 kg/m2 Julio Cesar Gonzalez Work Phone: [facility] Work Phone: 09-29-2021 15:32-0400 Body surface area Derived from formula 1.65 m2 Julio Cesar Gonzalez Work Phone: [facility] Work Phone: 09-29-2021 15:32-0400 Body temperature 97.3 [degF] Julio Cesar Gonzalez Work Phone: [facility] Work Phone: 09-29-2021 15:32-0400 Body weight 57.86 kg Julio Cesar Gonzalez Work Phone: [facility] Work Phone: 09-29-2021 15:32-0400 Diastolic blood pressure 66 mm[Hg] Julio Cesar Gonzalez Work Phone: [facility] Work Phone: 09-29-2021 15:32-0400 Heart rate 89 /min Julio Cesar Gonzalez Work Phone: [facility] Work Phone: 09-29-2021 15:32-0400 SaO2% (BldA) [Mass fraction] 98 % Julio Cesar Gonzalez Work Phone: [facility] Work Phone: 09-29-2021 15:32-0400 Systolic blood pressure 94 mm[Hg] Julio Cesar Gonzalez Work Phone: [facility] Work Phone: 09-08-2021 15:26-0400 Body height 167.64 cm Julio Cesar Gonzalez Work Phone: [facility] Work Phone: 09-08-2021 15:26-0400 Body mass index (BMI) [Ratio] 20.05 kg/m2 Julio Cesar Gonzalez Work Phone: [facility] Work Phone: 09-08-2021 15:26-0400 Body surface area Derived from formula 1.63 m2 Julio Cesar Gonzalez Work Phone: [facility] Work Phone: 09-08-2021 15:26-0400 Body temperature 96.4 [degF] Julio Cesar Gonzalez Work Phone: [facility] Work Phone: 09-08-2021 15:26-0400 Body weight 56.36 kg Julio Cesar Gonzalez Work Phone: [facility] Work Phone: 09-08-2021 15:26-0400 Diastolic blood pressure 66 mm[Hg] Julio Cesar Gonzalez Work Phone: [facility] Work Phone: 09-08-2021 15:26-0400 Heart rate 72 /min Julio Cesar Gonzalez Work Phone: [facility] Work Phone: 09-08-2021 15:26-0400 SaO2% (BldA) [Mass fraction] 96 % Julio Cesar Gonzalez Work Phone: [facility] Work Phone: 09-08-2021 15:26-0400 Systolic blood pressure 100 mm[Hg] Julio Cesar Gonzalez Work Phone: [facility] Work Phone: Encounters Encounter Date Encounter Type Care Provider Facility Start: 10-04-2025 ambulatory Ediwn Oliveira Facility:[facility] Start: 09-04-2025 End: 09-04-[address] Edwin Oliveira MD -[facility] Work Phone: Start: 09-04-2025 End: 09-04-2025 ambulatory Spencer Chino [employer] D[employer]ER HELPER-C Work Phone: -[facility] Start: 06-28-2025 End: 06-28-2025 ambulatory Spencer Chino [employer] D[employer]ER HELPER-C Work Phone: -[facility] Start: 06-28-2025 End: 06-28-2025 Patient encounter procedure Ladonna Grant [facility] -Outpatient Breast Imaging Work Phone: Start: 06-28-2025 End: 06-28-2025 ambulatory Ladonna Grant Facility:[facility] Start: 05-09-2025 ambulatory Roge Sarkar Facility: [facility] Start: 05-09-2025 Non-patient / Non-visit Dr. Roge Sarkar MD -[facility] Start: 05-09-2025 End: 05-09-2025 Admission to same day surgery center Dr. Roge Sarkar MD -Endoscopy Work Phone: Start: 05-09-2025 End: 05-09-2025 ambulatory Spencer Chino [employer] D[employer]ER HELPER-C Work Phone: [facility] Work Phone: Start: 04-30-2025 End: 04-30-[address] Roge Sarkar MD -[facility] Work Phone: Start: 04-30-2025 End: 04-30-2025 ambulatory Spencer Chino [employer] D[employer]ER HELPER-C Work Phone: [facility] Work Phone: Start: 02-07-2025 Encounter for genera l adult medical examination without abnormal findings Spencer Chino [facility] Start: 01-23-2025 End: 01-23-[address] Sonja Landaverde MD Work Phone: [facility] Work Phone: Start: 01-23-2025 End: 01-23-2025 Patient encounter procedure Spencer Garcíader RUG DYER HELPER-C -Karen, Sailaja Parisi Start: 01-23-2025 End: 01-23-2025 ambulatory Spencer Chino [facility] Facility:[facility] Start: 12-28-2024 End: 12-28-2024 Patient encounter procedure Ladonna TAPIA -[facility] Work Phone: Start: 12-28-2024 End: 12-28-2024 Patient encounter status Ladonna Rudy [facility] Start: 12-28-2024 End: 12-28-2024 ambulatory Ladonna Grant Facility:[facility] Start: 07-18-2024 End: 07-18-2024 Emergency department patient visit PHYSICIAN [facility] Start: 06-23-2023 End: 06-23-2023 ambulatory [facility] Work Phone: Start: 06-23-2023 End: 06-23-2023 Patient encounter procedure [facility]patient Breast Imaging Work Phone: Start: 12-13-2022 End: 12-13-[address] Sonja Landaverde Work Phone: [facility] Work Phone: Start: 12-13-2022 End: 12-13-[address] Sonja Landaverde Work Phone: [facility] Start: 09-25-2022 End: 09-25-2022 Emergency department patient visit Kerry Hardy [facility] Start: 06-10-2022 Non-patient / Non-visit R[employer] DYER HELPER-C Mary Gonzalez RUG DYER HELPER Work Phone: [facility] Start: 06-10-2022 End: 06-10-2022 Admission to same day surgery center RUG DYER HELPER-Ingris Gonzalez RUG DYER HELPER Work Phone: [facility]-Endoscopy Start: 05-28-2022 End: 05-28-2022 Patient encounter procedure RUG DYER HELPER-Ingris Gonzalez RUG DYER HELPER Work Phone: [facility]-Outpatient Breast Imaging Start: 03-31-2022 Non-patient / Non-visit RUG DYER HELPER-C Mary Gonzalez RUG DYER HELPER Work Phone: [facility] Start: 03-30-2022 Patient encounter status RUG DYER HELPER-Ingris Gonzalez RUG DYER HELPER Work Phone: [facility] Start: 03-30-2022 End: 03-30-2022 Encounter for general adult medical examination without abnormal findings RUG DYER HELPER-Ingris Gonzalez RUG DYER HELPER Work Phone: [facility] Start: 03-30-2022 End: 03-30-2022 Patient encounter procedure RUG DYER HELPER-Ingris Gonzalez RUG DYER HELPER Work Phone: [facility] Start: 10-30-2021 ambulatory Julio Cesar Gonzalez Facility:[id number] Start: 09-29-2021 Office outpatient vi sit 15 minutes Julio Cesar Gonzalez Work Phone: [facility] Work Phone: Start: 09-28-2021 Chart Update Julio Cesar del rio Work Phone: [facility] Work Phone: Start: 09-08-2021 Office outpatient vi sit 15 minutes Julio Cesar Gonzalez Work Phone: [facility] Work Phone: Start: 02-13-2019 Patient encounter procedure Julio Cesar Mccauley [place] Facility:[facility] Start: 02-13-2019 End: 02-14-2019 Patient encounter procedure Julio Cesar Mccauley [place] Facility:[facility] Start: 09-07-2018 End: 09-07-2018 Patient encounter procedure Jey Joseph Facility:[facility] Start: 08-08-2018 End: 08-09-2018 Patient encounter procedure Julio Cesar Mccauley [place] Facility:[facility] Start: 08-02-2018 Patient encounter Facil [id number] Start: 08-02-2018 End: 08-02-2018 Emergency department patient visit Julio Cesra Mccauley [place] Facility:[facility] Start: 08-01-2018 Patient encounter Facil [id number] Start: 07-20-2018 End: 07-21-2018 Patient encounter procedure Julio Cesar Mccauley [place] Facility:[facility] Start: 09-07-2017 End: 09-07-2017 Ambulatory JULIO CESAR MCCAULEY [facility] Procedures Date Procedure Procedure Detail Performing Clinician Start: 06-28-2025 Screening mammography M stephen Chino [employer] HELPER[employer] Work Phone: Start: 05-09-2025 Colonoscopy Spencer Chino [employer] D[employer]PER[employer] Work Phone: Start: 01-23-2025 Vitamin D, 25-hydrox y measurement Spencer Chino [employer]UG D[employer] HELPER-[employer] Work Phone: Comment on above: Vitamin D StatusDefi ciency: <20 ng/mL (50nmol/L)Insufficiency: 20-30 ng/mL (50-75 nmol/L)Sufficiency: 30-100 ng/mL (75-250 nmol/L)Toxicity: >100 ng/mL (>250 nmol/L) Start: 06-23-2023 Screening mammography Start: 06-10-2022 Colonoscopy [employer] Jovana Banegas RUG DYER HELPER Work Phone: Start: 05-28-2022 Screening mammography N P-Ingris Gonzalez RUG DYER HELPER Work Phone: Start: 02-24-2021 Follow-up visit Ligation of fallopian tube Mary Londono Carlos Work Phone: Partial hysterectomy Julio Cesar Bry Gonzalez Work Phone: Plan of Treatment Date Care Activity Detail Author Start: 09-04-2025 End: 09-04-2025 Evaluation of diagnostic study results [facility] Start: 05-09-2025 Colsc flx w/rmvl of tumor polyp lesion snare tq COLONOSCOPY W/LESION REMOVAL [facility] Start: 05-09-2025 Patient discharge [facility] Start: 01-23-2025 Vitamin B12 measurement [facility] Start: 01-23-2025 Vitamin D, 25-hydrox y measurement [facility] Start: 12-13-2022 Patient referral [facility] Work Phone: Start: 06-10-2022 Patient discharge [facility] Work Phone: Start: 03-30-2022 Patient referral [facility] Work Phone: Colonoscopy [facility] Work Phone: MG Breast - bilatera l Screening [facility] MG Breast - bilatera l Screening [facility] Patient referral [facility] Work Phone: Payers Date Payer Category Payer Self-pay [id number] 2024 Unknown [id number] 2023 Unknown [id number] 2017 Unknown 2016 Medicaid [id number] 1975 Unknown [id number] 2.16.84 [id number] 1975 Unknown [id number] 2.16.84 0.1.729286.3.579.2.7 1975 Unknown [id number] 2.16.84 0.1.450633.3.579.2. 1975 Unknown [id number] 2.16.84 0.1.621551.3.579.2. 1975 Unknown [id number] 2.16.84 0.1.685021.3.579.2. 1975 Unknown [id number] 2.16.84 0.1.789315.3.579.2. 1975 Unknown [id number] 2.16.84 0.1.491405.3.579.2. 1975 Unknown [id number] 2.16.8 40.1.981094.3.579.2.1068 1975 Unknown [id number] .16.8 40.1.182936.3.579.2.1068 1975 Unknown [id number] 2.16. 840.1.604894.3.579.2.902 Unknown [id number] 2.16.8 40.1.391067.3.579.2.462 Unknown [id number] 2.16.8 40.1.940075.3.579.2.462 Unknown [id number] 2.16.8 40.1.037356.3.579.2.462 Unknown [id number] 2.16.8 40.1.696360.3.579.2.462 Unknown [id number] 2.16.8 40.1.581263.3.579.2.462 Unknown [id number] 2.16.8 40.1.201120.3.579.2.462 Unknown [id number] 2.16.8 40.1.051082.3.579.2.462 Unknown [id number] 2.16.8 40.1.719345.3.579.2.462 Social History Date Type Detail Facility No alcohol use No alcohol use [facility] Work Phone: Start: 03-30-2022 End: 12-13-2022 Tobacco smoking status NHIS Unknown if ever smoked [facility] Start: 06-14-2019 [facility] Start: 1975 Sex Assigned At Female [facility] Start: 12-14-2023 End: 05-06-2025 Tobacco smoking status NHIS Current some day smoker [facility] Start: 02-07-2025 Sex Female (finding) [facility] Not [facility] NEGATED: Highlighted row Not [facility] Medical Equipment Procedure Code Equipment Code Equipment [...] /State Mental Status Date Assessment Result Facility 05-09-2025 Cognitive function Voice/Name [facility] Work Phone: 06-10-2022 Cognitive function Level Of Cons ciousness Awake;Drowsy [facility] Work Phone: 06-10-2022 Cognitive function Voice/Name [facility] Work Phone: Clinical Notes 12-28-2024 to 05-09-2025 Note Date & Type Note Facility 05-09-2025 Consult note [facility] 05-09-2025 Procedure note [facility] 05-09-2025 Procedure note [facility] 05-09-2025 Consult note [facility] 05-09-2025 Consult note [facility] 05-09-2025 History and physi maria ines note [facility] 05-09-2025 Note [facility] Medical Records Department [address] [place] [address] History Physical Exam 05/09/25 0743 MR#: [id number] Acct: [id number] Name: DARLENE RODRIGUEZ Rep #: [id number] : 1975 50 From: Roge Sarkar MD PCP: GALO DoverC Status:[facility] Location: [facility] History and Physical Date of Admission: 05/09/25 Date of Service: 04/30/25 MR#: [id number] Acct: [id number] Name: DARLENE RODRIGUEZ Rep #: [id number] : 1975 Provider: Dr. Roge Sarkar MD Age/Sex: 50/F Location: [facility] Status: Signed Intake Vital Signs 12/28/2507:08 04/30/2509:31 Height 5 ft 1 in 5 ft 1 in Weight: 128 lb BMI 24.1 BP 101/60 Blood Pressure Location Rt brachial Position Sitting Pulse 73 Pulse Source Monitor Pulse Oximetry (%) 98 Oxygen Delivery Method room air Intake Visit Reasons: RECALL COLONOSCOPY, BLOOD IN STOOL Chief Complaint: recall colonoscopy/blood in stool Is patient in pain?: No Allergies codeine Allergy (Mild, Verified 04/30/25 09:33) OtherSulfa (Sulfonamide Antibiotics) Allergy (Mild, Verified 04/30/25 09:33) Other Medications ???Medication ???Instructions ???Recorded ???Confirmed ???Type valacyclovir 500 mg tablet 500 mg PO BID #30 tabs 11/10/22 04/30/25 Rx (Valtrex) cholecalciferol (vitamin D3) 25 25 mcg PO QDAY 04/30/25 04/30/25 History mcg (1,000 unit) capsule PFSH Medical History Abnormal mammogram Wears glasses Wears partial dentures Smoker Preventative health care Encounter to establish care Colon cancer screening Herpes Hyperlipidemia Surgical History History of LAVH H/O tubal ligation Family History Grandmother Cancer Lung cancerGrandfather Cancer prostate Anxiety Depression Lung cancerMother HyperlipidemiaOther Heart disease Social History Smoking Status: Current [...] thinners. Relevant prior abdominal surgical history includes: [facility] Patient does not have a significant history [...] high blood pressure, heart attack, heart stent, palpitation (more content not included)... [facility] 04-30-2025 Evaluation note Diagnosis Onset Date Resolution Blood per rectum acute April 9:22am Personal history of adenomatous and serrated colon polyps acute April 30, 2025 9:22am [facility] Work Phone: 1(218) 571-213201-31-2025 Evaluation note* Diagnosis Onset Date Resolution Status Admit Date Encounter for well woman melonie vázquez with routine gynecological exam acute December 28 7:45am Encounter for routine gynecological examination noneactive Januar y 2024 7:45am [facility] Work Phone: Consult note Author Klever Barreto [facility] Note Date/Time May 09, 2025 7:55 am [facility] Medical Records Department [address] [place] [address] Pre-Anesthesia Evaluation 05/09/25 0755 MR#: [id number] Acct: [id number] Name: DARLENE RODRIGUEZ Rep #:[id number] : 1975 50 From: Klever Barreto MD PCP: [facility] [place] Status:[facility] Y Race: C Location: [place] [address] ASA Classification* ASA Classification ASA Classification: 2 Assessment & Plan Anesthesia* Anesthesia Assessment Anesthesia Assessment: Discussed sedation and/or anesthesia options, risks, benefits, and alternatives with patient/parents/legal guardian/POA. Questions invited. The patient/parents/legal guardian/POA seems to understand and agrees to proceedwith anesthesia plan. Reviewed the physical assessment, medical history, allergy history and patient home medications list prior to surgery/procedure/anesthetic and documented any changes. Performed airway and anesthesia risk assessments. Anesthesia Type Anesthesia Type: MAC Anesthesia Focused Assessment* Temperature: 97 F Pulse Rate: 96 Blood Pressure: 103/76 Respiratory Rate: 16 Pulse Ox: 99 Airway Assessment Mouth opens: >3 cm Mallampati Score: II Labs Anesthesia Preop lab: CBC WBC 6.3 K/mm3 (4.4-11.0) 01/23/25 16:04 01/23/25 RBC 4.87 M/mm3 (4.2-5.4) 01/23/25 16:04 01/23/25 Hgb 14.2 g/dL (12.0-15.0) 01/23/25 16:04 01/23/25 Hct 42.9 % (37-47) 01/23/25 16:04 01/23/25 Plt Count 210 K/mm3 (150-450) 01/23/25 16:04 01/23/25 CHEMISTRY Potassium 4.2 mmol/L (3.3-5.1) 01/23/25 16:04 01/23/25 Sodium 141 mmol/L (133-145) 01/23/25 16:04 01/23/25 BUN 15 mg/dL (4-19) 01/23/25 16:04 01/23/25 Creatinine 0.7 mg/dL (0.6-1.0) 01/23/25 16:04 01/23/25 Glucose 87 mg/dL (70-99) 01/23/25 16:04 01/23/25 POC Glucose 69 mg/dL (70-110) L 06/21/19 06:37 06/21/19 TSH 1.240 uIU/mL (0.300-4.200) 01/23/25 16:04 /05/22 COAG PT 14.2 SECONDS (11.7-14.9) 06/21/19 06:12 Urine Test Negative Negative 06/21/19 05:36 06/21/19 Pre-Assessment Diagnosis/Proposed Procedure Planned Operative Procedure(s): COLONOSCOPY Anesthesia History Anesthesia History - oxygen equipment preparer: Anesthesia History - oxygen equipment preparer Hx Hospitalization No 05/06/25 14:40 Any Problems With Anesthesia No 05/06/25 14:40 Cholinesterase deficiency No 05/06/25 14:40 You/Your Family Experience No 05/06/25 14:40 fever (hyperthermia) with Relationship Recent Exposure to Contagious No 06/10/22 09:28 Disease Does patient have nerve No 05/06/25 14:40 stimulator Patient instructed to have device shut off --Does patient have Pacemaker or ICD? When Was Last Pacemaker Check QUESTION #4 FULL TEXT: You/Your Family Experience fever (hyperthermia) with Anesthesia Last Oral Intake Last Oral intake: Last Oral Intake NPO since Meds taken in AM with sips of water? Meds patient instructed to take am of surgery PONV PONV - oxygen equipment preparer: PONV - oxygen equipment preparer Female Yes 05/06/25 14:40 HX of Motion Sickness No 05/06/25 14:40 HX of N/V After Surgery No 05/06/25 14:40 Non-Smoker No 05/06/25 14:40 Duration of Surgery greater No 05/06/25 14:40 than 60 minutes Number of Risk Factors 1 05/06/25 14:40 PONV Score Low Risk 05/06/25 14:40 Height & Weight Height & Weight: Anesthesia: Height & Weight Height 5 ft 1 in 05/09/25 07:07 Weight: 56.1 kg 05/09/25 07:07 Body Mass Index (BMI) 23.3 05/09/25 07:07 Respiratory Assessment Respiratory Assessment - oxygen equipment preparer: Respiratory Tract Infection Hx - oxygen equipment preparer Hx Respiratory Tract Infection No 05/06/25 14:40 STOP Sleep Apnea STOP Sleep Apnea - oxygen equipment preparer: STOP Sleep Apnea - oxygen equipment preparer Hx Hypertension No 05/06/25 14:40 Hx Sleep Apnea No 05/06/25 14:40 CPAP BIPAP Do you snore loudly (louder No 05/06/25 14:40 than talking or can be heard Do you often feel tired/ No 05/06/25 14:40 fatigued/ sleepy during daytime? Has anyone observed you stop No 05/06/25 14:40 breathing during sleep? STOP Results Negative 05/06/25 14:40 QUESTION #5 FULL TEXT : Do you snore loudly (louder than talking or can be heard through closed doors)? 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 Specify any problems Hx of Preganancy in last 3 No 05/06/25 14:40 Months Nurse Filling Out Transfusion [email or web address] 05/06/25 14:40 & Questions: Date: 05/06/25 05/06/25 14:40 Time: 14:45 05/06/25 14:40 Patient unable to answer at this time (ie. confused, unrespo /Reproduction History /Reproductive History - oxygen equipment preparer: /Reproductive Hx- oxygen equipment preparer Hx Now No 05/06/25 14:40 Gestational Age (in weeks): EDC: Hx Hx Para Hx Section SAB No 05/06/25 14:40 Active Medications Active Medications: Current Medications Generic Name Dose Route Start Last Admin Trade Name Freq PRN Reason Stop Dose Admin Lactated Ringer's 1,000 mls @ 15 mls/hr 05/09/25 07:15 05/09/25 07:22 IV 15 mls/hr .Q48H ABIGAIL Administration PFSH Medical History Wears contact lenses Low iron Abnormal mammogram Wears glasses Wears partial dentures Smoker Preventative health care Encounter to establish care Colon cancer screening Herpes Hyperlipidemia Home Medications ?Medication ?Instructions ?Recorded ?Last Taken ?Type valacyclovir 500 mg tablet 500 mg PO BID #30 tabs 10/28 03/19 Unknown Rx (Valtrex) cholecalciferol (vitamin D3) 25 25 mcg PO QDAY 5 Unknown History mcg (1,000 unit) capsule Allergy/AdvReac Type Severity Reaction Status Date / Time codeine Allergy Mild Other Verified 05/09/25 07:07 Sulfa (Sulfonamide Allergy Mild Other Verified 05/09/25 07:07 Antibiotics) Family History Grandmother Cancer Lung cancer Grandfather Cancer prostate Anxiety Depression Lung cancer Mother Hyperlipidemia Other Heart disease Surgical History History of LAVH H/O tubal ligation Social History Smoking Status: Current some day smoker tobacco type: e-cigarettes Electronic Cigarette Use: with nicotine alcohol intake: never substance use type: does not use caffeine: Yes what type of physical activity do you participate in: none frequency: 3-4 times per week seatbelt use: always do you feel safe at home: Yes additional social history: - [employer] Review of Systems (Anesthesia) ROS Narrative System reviewed and no additional complaints, except as documented. 05/09/25 7610 <Electronically signed by Klever Barreto MD > Date _ Klever Barreto MD Cosigner Signature: Date CC: ~ Signed [facility] Work Phone: Consult note [facility] Note Date/Time May 09, 2025 8:41 am [facility] Medical Records Department [address] [place] [address] Anesthesia Postop Eval I 05/09/25 0840 MR#: [id number] Acct: [id number] Name: DARLENE RODRIGUEZ Rep #:[id number] : 1975 50 From: Steven Hidalgo PCP: Spencer Chino NP-C Status:REG [facility] Y Race: C Location: [place] [address] Anesthesia: Postop Eval I Current Vital Signs Temperature: 97.9 F Pulse Rate: 82 Blood Pressure: 100/71 Respiratory Rate: 18 Pulse Ox: 100 Assessment Airway patent: Yes Spontaneous unlabored respirations: Yes nausea: No Vomiting: No Anesthesia Complication: No Fluid Hydration Crystalloid volume administer (ml): 450 Total IV fluid infused: 450 Progress Note Anesthesia document: Postop Eval 1 completed: Yes 05/09/25 0841 <Electronically signed by Steven YORK> Date _ Steven Agrawal WELDER APPRENTICE G[employer] Cosigner Signature: Date CC: ~ Signed [facility] Work Phone: Consult note Author Klever Barreto [facility] Note Date/Time May 09, 2025 9:06 am [facility] Medical Records Department [address] [place] [address] Anesthesia Postop Eval II 05/09/25 0857 MR#: [id number] Acct: [id number] Name: DARLENE RODRIGUEZ MARINA Rep #:[id number] : 1975 50 From: Klever Barreto MD PCP: [facility] [place] Status:[facility] Y Race: C Location: [place] [address] Anesthesia Postop Eval I Sum Postop Eval Completion status Anesthesia document: Postop Eval 1 completed: Yes Anesthesia Postop Eval I Summary Anesthesia Postop Eval I Summary: Anesthesia Postop Eval I: Assessment Summary Airway patent Yes 05/09/25 08:40 WELDER APPRENTICE [email or web address] Spontaneous unlabored Yes 05/09/25 08:40 WELDER APPRENTICE [email or web address].[email or web address] respirations Mental status nausea No 05/09/25 08:40 WELDER APPRENTICE [email or web address].[email or web address] Vomiting No 05/09/25 08:40 WELDER APPRENTICE [email or web address].[email or web address] Anesthesia Postop Eval I: Fluid Summary Crystalloid volume administer 450 05/09/25 08:40 WELDER APPRENTICE [email or web address].DMAY (ml) Colloids volume administered ( ml) Blood Product volume administered (ml) Total IV fluid infused 450 05/09/25 08:40 WELDER APPRENTICE [email or web address].DMAY Anesthesia Postop Eval I: Summary Notes Anesthesia Complication No 05/09/25 08:40 WELDER APPRENTICE [email or web address].[email or web address] Anesthesia Complication Comment: Post-operative progress note Anesthesia: Postop Eval II Evaluation Mental status: Awake Pain Level: 0 nausea: No Vomiting: No 05/09/25 0857 <Electronically signed by Klever Barreto MD > Date _ Klever Barreto MD Cosigner Signature: Date CC: ~ Signed [facility] Work Phone: evaluation note* Diagnosis Onset Date Resolution Status Colon cancer screening acute Encounter to establish care acute Hyperlipidemia acute Preventative health care acu te [facility] Work Phone: evaluation note* Diagnosis Onset Date Resolution Status Colon cancer screening acute Encounter to establish care acute Hyperlipidemia acute Preventative health care acu te Colon cancer screening acute [facility] Work Phone: Evaluation note* Diagnosis Onset Date Resolution Status Encounter for routine gynecological examination noneactive [facility] Work Phone: Evaluation noteNo assessment information available [facility] Work Phone: History and physical note Author Roge Sarkar [facility] Note Date/Time May 09, 2025 7:44 am [facility] Medical Records Department [address] [place] [id number] History & Physical Exam 05/09/25 0743 MR#: [id number] Acct: [id number] Name: MURALINICHOLASDARLENEHAYLEY GRAY Rep #:[id number] : 1975 50 From: Roge Ness PCP: [facility] [place] Status:[facility] Location: [facility]-1 History and Physical Date of Admission: 05/09/25 Date of Service: 04/30/25 MR#: [id number] Acct: [id number] Name: DARLENE RODRIGUEZ Rep #: [id number] : 1975 Provider: Dr. Roge Sarkar MD Age/Sex: 50/F Location: [facility] Status: Signed Intake Vital Signs 12/28/2507:08 04/30/2509:31 Height 5 ft 1 in 5 ft 1 in Weight: 128 lb BMI 24.1 BP 101/60 Blood Pressure Location Rt brachial Position Sitting Pulse 73 Pulse Source Monitor Pulse Oximetry (%) 98 Oxygen Delivery Method room air Intake Visit Reasons: RECALL COLONOSCOPY, BLOOD IN STOOL Chief Complaint: recall colonoscopy/blood in stool Is patient in pain?: No Allergies codeine Allergy (Mild, Verified 04/30/25 09:33) OtherSulfa (Sulfonamide Antibiotics) Allergy (Mild, Verified 04/30/25 09:33) Other Medications ?Medication ?Instructions ?Recorded ?Confirmed ?Type valacyclovir 500 mg tablet 500 mg PO BID #30 tabs 11/10/22 04/30/25 Rx (Valtrex) cholecalciferol (vitamin D3) 25 25 mcg PO QDAY 04/30/25 04/30/25 History mcg (1,000 unit) capsule PFSH Medical History Abnormal mammogram Wears glasses Wears partial dentures Smoker Preventative health care Encounter to establish care Colon cancer screening Herpes Hyperlipidemia Surgical History History of LAVH H/O tubal ligation Family History Grandmother Cancer Lung cancerGrandfather Cancer prostate Anxiety Depression Lung cancerMother HyperlipidemiaOther Heart disease Social History Smoking Status: Current [...] to 1-1/2 months she has experienced some darkblood in her stools. She states that this has spontaneously resolved as of the last week. She she attributes this resolution to no longer eating nuts as she had been doing in some excess. She denies any concurrent use of Pepto-Bismol oriron supplements during this time. She further denies any evidence of hemorrhoids with specific denial of any signs of tissue protrusion, pain or itching. They describe their bowel habits as normal. They have approximately 1bowel movements per day and spend roughly 5-7 [...] thinners. Relevant prior abdominal surgical history includes: [facility] Patient does not have a significant history [...] in stool, No acid reflux, No hemorrhoids, No ulcers, No gallbladder problem and No black,tarry stools Mike Hematologic: No blood thinners, No blood disorders, No bleeding, No anemia and No blood clots Neuro Neurologic: No system reviewed and no additional complaints, except as documented, No as per HPI, No abnormal gait, No abnormal hearing, No abnormal movements, No abnormal speech, No behavioral changes, No burning sensations, No confusion, No convulsions, No disequilibrium, No dizziness, No localized weakness, No frequent falls, No headache(s), No lack of coordination, No loss ofvision, No memory loss, No numbness, No other visual disturbances, No radicular pain, No restless legs, No sensory deficit, No syncope, No tingling, No tremor(s), No weakness and No other Exam Const General: cooperative and comfortable Orientation: alert, awake and oriented x3 Resp Effort & Inspection: normal respiratory effort GI Other: Mildly distended, soft, mild tenderness to palpation in right lower quadrant?otherwise benign Assessment and Plan Assessment and Plan (1) Blood per rectum: Status: Acute Comment: Patient is a 50-year-old female who makes office visit related to recent experience of what she has taken to be painless bleeding per rectum. She deniesa history that would be consistent with a hemorrhoid source for this bleeding and now confirms that the bleeding appears spontaneously resolved. While I takethat to be encouraging, I find it necessary to investigate further since it has been over 2 years since her last colonoscopy and she is otherwise due for surveillance colonoscopy given her history with serrated adenoma found at her index scope. She is advised of this recommendation and confirmed her agreement. Plan: Plan will be to complete colonoscopy on first mutually agreeable date under local MAC. Pre-procedure prep discussed and paper instructions provided. Patient is also made aware that she will need to have a concrete pile driver operator with her the day of the procedure. (2) Personal history of adenomatous and serrated colon polyps: Status: Acute Comment: Subcentimeter serrated adenoma of the rectum found at 15 cm with patient's priorcolonoscopy completed May 2022. I have examined the patient and the H&P has been reviewed. There are no clinicalchanges since date of exam. Patient confirms that she is continuing to do well without observing any further dark stools. She also confirms she completed prepfor today's procedure. She denies any further questions. Abdominal exam is benign. Consents were confirmed. Proceed to endoscopy suite for surveillance colonoscopy. 05/09/25 6365 <Electronically signed by Roge Sarkar MD> Cosigner Signature (if applicable): CC: [facility] [place]; Dr. Roge Sarkar MD~ Signed [facility] Work Phone: History of Present illness NarrativeSjanet presents today to discuss her elevated cholesterol levels. She talk to her soil fertility specialist and they recommended that she take medication. [...] test and determine medication treatment from that point.[facility] Work Phone: History of Present illness NarrativeShe presents today for follow up of CT cardiac score test. Her score was 258, which puts her in theintermediate category. She denies chest pain or pressure [...] I recommended aggressive risk factor reduction, cholesterol medicationand baby aspirin as well as smoking cessation. Exercise-she does 20 minutes on a treadmill every day at a speed of 3.6. She tolerates it well. As well as heart healthy diet.[facility] Work Phone: Hospital Dis[facility] instructionsW[facility] Work Phone: [facility] Dis[facility] instructionsW[facility] Work Phone: Reason for referral (narrative)No reason for referral information availableWUniversity [facility]als [facility] Work Phone: Summary Purpose Family History No [...] No June 14, 2019 10:21am Power of Machine Fur Cleaner No June 14 9 10:21am Advance Directive Response Recorded Date/ Time Living Will No June 08, 2022 12:12pm Power of Machine Fur Cleaner No June 08 12:12pm Advance Directive Response Recorded Date/ Time Living Will No June 08, 2022 11:12am Power of Machine Fur Cleaner No June 08 11:12am Advance Directive Response Recorded Date/ Time Do you have a Healthcare Power of Machine Fur Cleaner? No May 06, 2025 2:40pm Chief Complaint Pt presents with concerns regarding elevated cholesterol levels for the past couple of years.Pt presents for CT CACS f/u Chief Complaint and Reason for Visit Chief Complaint RUG DYER HELPER, EST.CARE-NPP FABIÁN LED Amb Documentation SCREENING Reason for Visit Colon cancer screeni ng Encounter to establish care Hyperlipidemia Preventative health care Chief Complaint RUG DYER HELPER, EST.CARE-NPP FABIÁN LED Amb Documentation SCREENING Reason for Visit Colon cancer screeni ng Encounter to establish care Hyperlipidemia Preventative health care Colon cancer screening Chief Complaint 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) Reason for Visit Encounter for routin e gynecological examination Chief Complaint SCREENING Chief Complaint Admit Date 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) December 28, 2024 7 :45am Reason for Visit Admit Date Encounter for well woman exa m with routine gynecological exam December 28, 2024 7:45am Encounter for routine gynecological exam ination December 28, 2024 7:45am Chief Complaint Admit Date RECALL COLONOSCOPY, BLOOD IN STOOL April 30, 2025 9:22am Reason for Visit Admit Date Blood per rectum April 30, 2025 9:22a m Personal history of adenomatous and serr ated colon polyps April 30, 2025 9:22am Chief Complaint Admit Date RECALL COLONOSCOPY, BLOOD IN STOOL April 30, 2025 9:22am SCREENING June 28, 2025 8:2 8am Chief Complaint Admit Date SCREENING June 28, 2025 8:2 8am EST/FAMILY HX (AMPARO) September 04, 2025 1:34pm Additional Source Comments INFORMATION SOURCE (unrecogn ized section and content) DATE CREATED AUTHOR 05/23/2018 [facility] DATE CREATED AUTHOR AUTHOR'S ORGANIZ ATION 08/16/2018 [facility] DATE CREATED AUTHOR AUTHOR'S ORGANIZ ATION 02/14/2019 [facility] DATE CREATED AUTHOR AUTHOR'S ORGANIZ ATION 10/01/2021 [employer] DATE CREATED AUTHOR AUTHOR'S ORGANIZ ATION 09/28/2022 [facility] DATE CREATED AUTHOR AUTHOR'S ORGANIZ ATION 07/25/2024 [facility] DATE CREATED AUTHOR AUTHOR'S ORGANIZ ATION 10/01/2025 [facility] Goals (unrecognized section and content) [...] Active Member Role Status Dates Julio Cesar Gonzalez RUG DYER HELPER, RUG DYER HELPER-C Family Provider Active Dr. Sonja Lnadaverde MD Primary Care Provider Active Team Status: Inactive Member Role Status Dates Dr. Sonja Landaverde MD Primary Care Provider, Refer ring Provider Active Ladonna Grant CNM Attending Provider Active Team Status: Inactive Member Role Status Dates Dr. Sonja Landaverde MD Primary Care Provider Active Ladonna Grant CNM Attending Provider, Referring Pr ovider Active Team Status: Active Member Role Status Dates Julio Cesar Gonzalez RUG DYER HELPER, RUG DYER HELPER-C Family Provider Active Spencer Chino VSC, RUG DYER HELPER-C Primary Care Provider Active Team Status: Inactive [...] Status: Inactive Member Role Status Dates Spencer Chino VSC, RUG DYER HELPER-C Primary Care Provider Active Start: January 23, 2025 End: January 23, 2025 Spencer Chino VSC, RUG DYER HELPER-C Attending Provider Active S tart: January 23, 2025 End: January 23, 2025 Team Status: Active Member Role Status Dates Spencer Chino VSC, RUG DYER HELPER-C Primary Care Provider Active Team Status: Inactive Member Role Status Dates Spencer Garcíader VSC, RUG DYER HELPER-C Primary Care Provider Active Start: April 30, 2025 End: April 30, 2025 Spencer Matti VSC, RUG DYER HELPER-C Referring Provider Active S tart: April 30, 2025 End: April 30, 2025 Dr. Roge Sarkar MD Attending Provider Active Start: April 30, 2025 End: April 30, 2025 Team Status: Inactive Member Role Status Dates Spencer Matti VSC, RUG DYER HELPER-C Primary Care Provider Active Start: May 09, 2025 End: May 09, 2025 Dr. Roge Sarkar MD Attending Provider Active Start: May 09, 2025 End: May 09, 2025 Dr. Roge Sarkar MD Referring Provider Active Start: May 09, 2025 End: May 09, 2025 Team Status: Active Member Role Status Dates Spencer Matti VSC, RUG DYER HELPER-C Primary Care Provider Active Start: May 09, 2025 Dr. Roge Sarkar MD Attending Provider Active Start: May 09, 2025 Dr. Roge Sarkar MD Referring Provider Active Start: May 09, 2025 Dr. Roge Sarkar MD Other Provider Active Sta rt: May 09, 2025 Team Status: Active Member Role/Relationship Status Dates Spencer Matti VSC, RUG DYER HELPER-C Primary Care Provider Active Team Status: Inactive Member Role/Relationship Status Dates Spencer Chino VSC, RUG DYER HELPER-C Primary Care Provider Active Start: April 30, 2025 End: April 30, 2025 Spencer Chino VSC, RUG DYER HELPER-C Referring Provider Active S tart: April 30, 2025 End: April 30, 2025 Dr. Roge Sarkar MD Attending Provider Active Start: April 30, 2025 End: April 30, 2025 Team Status: Inactive Member Role/Relationship Status Dates Spencer Chino VSC, RUG DYER HELPER-C Primary Care Provider Active Start: May 09, 2025 End: May 09, 2025 Dr. Roge Sarkar MD Attending Provider Active Start: May 09, 2025 End: May 09, 2025 Dr. Roge Sarkar MD Referring Provider Active Start: May 09, 2025 End: May 09, 2025 Team Status: Active Member Role/Relationship Status Dates Spencer Matti VSC, RUG DYER HELPER-C Primary Care Provider Active Start: May 09, 2025 Dr. Roge Sarkar MD Attending Provider Active Start: May 09, 2025 Dr. Roge Sarkar MD Referring Provider Active Start: May 09, 2025 Dr. Roge Sarkar MD Other Provider Active Sta rt: May 09, 2025 Team Status: Inactive Member Role/Relationship Status Dates Ladonna Grant CNM Attending Provider Active Start: June 28, 2025 End: June 28, 2025 Ladonna Grant CNM Referring Provider Active Start: June 28, 2025 End: June 28, 2025 Spencer Matti VSC, RUG DYER HELPER-C Primary Care Provider Active Start: June 28, 2025 End: June 28, 2025 Team Status: Active Member Role/Relationship Status Dates Spencer Chino VSC, RUG DYER HELPER-C Primary care physician Active Team Status: Inactive Member Role/Relationship Status Dates Spencer Chino VSC, RUG DYER HELPER-C Primary care physician Active Start: May 09, 2025 End: May 09, 2025 Dr. Roge Sarkar MD Attending physician Active Start: May 09, 2025 End: May 09, 2025 Dr. Roge Sarkar MD Referring Provider Active Start: May 09, 2025 End: May 09, 2025 Team Status: Active Member Role/Relationship Status Dates Spencer Chino VSC, RUG DYER HELPER-C Primary care physician Active Start: May 09, 2025 Dr. Roge Sarkar MD Attending physician Active Start: May 09, 2025 Dr. Roge Sarkar MD Referring Provider Active Start: May 09, 2025 Dr. Roge Sarkar MD Nurse Practitioner Active Start: May 09, 2025 Team Status: Inactive Member Role/Relationship Status Dates Ladonna Grant CNM Attending physician Active Start: June 28, 2025 End: June 28, 2025 Ladonna Grant CNM Referring Provider Active Start: June 28, 2025 End: June 28, 2025 Spencer RAPHAEL RUG DYER HELPER-C Primary care physician Active Start: June 28, 2025 End: June 28, 2025 Team Status: Inactive Member Role/Relationship Status Dates Spencer RAPHAEL, RUG DYER HELPER-C Primary care physician Active Start: September 04, 2025 End: September 04, 2025 Spencer RAPHAEL NP-C Referring Provider Active S tart: September 04, 2025 End: September 04, 2025 Dr. Edwin Oliveira MD Attending physician Active Start: September 04, 2025 End: September 04, 2025 FOR RECORDS PERTAINING TO PATIENTS WHO [...] BE BASED ON THE PRIMARY CLINICAL RECORDS. [facility] [employer] [facility]. provides no warranty or guarantee of the accuracy or completeness of information in this document.
--- NOTE | 2025-10-04 06:25 | CT_ITS ---
PROCEDURE: LIMITED CHEST CT CARDIAC ONLY N/A REASON FOR EXAM: CAD Hyperlipidemia. TECHNIQUE: Procedure Code: [id number] Modality: CT Procedure: LIMITED CHEST CT CARDIAC ONLY One or more dose reduction techniques were used (e.g., Automated exposure control, adjustment of the mA and/or kV according to patient size, use of iterative reconstruction technique). RADIATION DOSE SUMMARY: CTDlvol: 12.19 mGy DLP: 219.42 mGycm COMPARISON: None. CT/Limited Chest CT Cardiac Only IMPRESSION: Limited imaging of the lungs demonstrates no acute process. No pleural effusion or pneumothorax is seen in visualized areas. No adenopathy is noted. The visualized upper abdomen demonstrates no significant abnormality. Reading Location: [place] [id number]
--- NOTE | 2025-10-11 10:12 | CA.SCORE ---
Calcium Scoring Date of Study:: 10/04/25 Indications Indications: HLD Coronary Calcium Scoring: High-resolution Computed Tomographic imaging of the chest was performed on [10/04/25 ], with particular attention paid to the coronary arteries. Images from the examination were analyzed for the presence and extent of coronary artery calcification , using coronary calcium quantification software. The patient tolerated the procedure well and there were no complications. The results of the coronary calcification analysis are provided below. Findings Coronary Artery Left Main (LM): 0 Left Anterior Descending (LAD): 279 Left Circumflex (LCX): 147 Right Coronary Artery (RCA): 19.9 Total Agatston Score: 445.9 Percentile Rankin Calcium Scoring Interpretation: Different methods to categorize the overall amount of coronary plaque. Overall amount CAC SIS Visual of coronary plaque P1 Mild -100 <2 1-2 vessels with mild amount of plaque P2 Moderate 101-300 3-4 1-2 vessels with moderate amount, 3 vessels with mild amount of plaque P3 Severe 301-999 5-7 3 vessels with moderate amount, 1 vessel with severe amount of plaque P4 Extensive >1000 >8 2-3 vessels with severe amount of plaque Calcium Score: Severe: 3 vessels w/moderate amount, 1 vessel w/severe amt of plaque Conclusion: Moderate 2 vessel plaque and single plaque mild vessel
== END | disposition home or self-care (01) ==
LOC: CT 06:16
PROVIDERS: PCP Nurse Practitioner Family; Referring Provider Internal Medicine Cardiovascular Disease; Visit Provider Internal Medicine Cardiovascular Disease
DX: I25.10 Atherosclerotic heart disease of native coronary artery without angina pectoris (principal)
CPT/HCPCS: 75571; 76380